=== PATIENT | female | born 1955 | race Caucasian/White ===

== ENCOUNTER 2020-06-17 01:38 | Outpatient (CLI) | payer MEDICARE, MEDICAID, SELFPAY ==
[2020-06-17 18:01] LABS: SARS-CoV-2 RNA PCR Negative
== END 2020-06-17 01:39 | disposition home or self-care (01) ==
LOC: ANHCOVIDDT 01:40
PROVIDERS: PCP Family Medicine; Visit Provider Internal Medicine Gastroenterology
DX: Z01.812 Encounter for preprocedural laboratory examination (principal); Z20.828 Contact with and (suspected) exposure to other viral communicable diseases
CPT/HCPCS: 87635; C9803; U0003

== ENCOUNTER 2020-06-20 02:29 | Day surgery (SDC) | payer MEDICARE, MEDICAID, SELFPAY ==
[2020-06-08 14:24] VITALS: BMI 54.1
[2020-06-20 07:05] LABS: Glucose Point of Care 383 (65-105)
[2020-06-20] MEDS: LACTATED RINGERS 1,000 ML 150 ML IV CONT (07:11)
[2020-06-20 07:15] VITALS: BP 141/53; PULSE 71; RESP 20; TEMP 36.6; O2SAT 97
--- NOTE | 2020-06-20 07:37 | WPDANESEPPF ---
Anes - Initial Pre Proc Eval Procedure: Operation Date: 06/20/20 09:00 Proposed Procedures p Screening Colonoscopy - Jonathan Man MD Date/Time: 06/20/20 07:37 Surgeon: Jonathan Man MD Pre Op Diagnosis: neoplasm screening Patient Data Age: 64 Gender: F Height: 5 ft 4 in Weight: 143.7 kg Last Vital Signs Temp 97.9 F 06/20/20 07:15 Pulse 71 06/20/20 07:15 Resp 20 06/20/20 07:15 BP 141/53 H 06/20/20 07:15 Pulse Ox 97 06/20/20 07:15 Allergies Allergy/AdvReac Type Severity Reaction Status Date / Time amoxicillin Allergy Unknown Unknown Verified 06/20/20 07:13 aspirin Allergy Unknown Unknown Verified 06/20/20 07:13 cephalexin Allergy Unknown Rash Verified 06/20/20 07:13 Cephalosporins Allergy Unknown Unknown Verified 06/20/20 07:13 erythromycin base Allergy Unknown Rash Verified 06/20/20 07:13 meperidine Allergy Unknown Unknown Verified 06/20/20 07:13 naproxen Allergy Unknown Unknown Verified 06/20/20 07:13 oxycodone Allergy Unknown Unknown Verified 06/20/20 07:13 Penicillins Allergy Unknown Rash Verified 06/20/20 07:13 propoxyphene Allergy Unknown Unknown Verified 06/20/20 07:13 telithromycin Allergy Unknown Unknown Verified 06/08/20 14:17 tetracycline Allergy Unknown Unknown Verified 06/08/20 14:17 theophylline Allergy Unknown Unknown Verified 06/08/20 14:17 Home Medications Medication Instructions Recorded Confirmed Type escitalopram oxalate 10 mg tablet 10 mg PO DAILY 11/11/19 06/20/20 History furosemide 40 mg tablet 40 mg PO BID tablet 11/11/19 06/20/20 History insulin regular hum U-500 conc 500 156 unit SUB-Q TID ml 11/11/19 06/20/20 History unit/mL subcutaneous soln ipratropium 20 mcg-albuterol 100 1 puff INHALATION QID 11/11/19 06/20/20 History mcg/actuation mist for inhalation lamotrigine 100 mg tablet 100 mg PO DAILY 11/11/19 06/20/20 History metolazone 5 mg tablet See Rx Instructions PO DAILY 11/11/19 06/20/20 History olanzapine 15 mg tablet 15 mg PO .QHS tablet 11/11/19 06/20/20 History rosuvastatin 40 mg tablet 40 mg PO .TWICE WEEKLY tablet 11/11/19 06/08/20 History spironolactone 25 mg tablet 12.5 mg PO DAILY tablet 11/11/19 06/08/20 History carvedilol 25 mg tablet 25 mg PO BID #180 tablet 01/18/20 06/20/20 Rx budesonide-formoterol HFA 80 2 puff INHALATION Q12H #6.9 gm 03/21/20 06/20/20 Rx mcg-4.5 mcg/actuation aerosol inhaler gabapentin 300 mg capsule 300 mg PO BID #180 cap 03/21/20 06/20/20 Rx insulin glargine 100 unit/mL (3 10 unit SUB-Q DAILY 03/21/20 06/20/20 History mL) subcutaneous pen potassium chloride 10 mEq 10 meq PO DAILY #90 tablet 03/29/20 06/20/20 Rx tablet,extended release tramadol 50 mg tablet 50 mg PO TID PRN #90 tablet 04/26/20 06/08/20 Rx omeprazole 20 mg capsule,delayed 20 mg PO DAILY #90 cap 05/10/20 06/20/20 Rx release riagrkzd-utvveynai-qvphawegx 3.5 4 drop EACH EAR Q8H #10 ml 06/01/20 06/20/20 Rx mg-10,000 unit/mL-1 % ear drops,susp lisinopril 2.5 mg PO DAILY 06/08/20 06/20/20 History Laboratory Tests 06/20/20 07:02 POC Capillary Glucose 383 mg/dl H mg/dl (65-105) Patient hx anesthesia problems: none Family hx anesthesia problems: none PMFSH Social History Social History Smoking status: Never smoker Second hand tobacco smoke exposure: No Alcohol intake: never Substance use: never Substance use type: does not use Gender identity (if verbalized by the patient): Female Sexual Orientation (if Verbalized by the Patient): Straight or Heterosexual Anes - Eval Final PreProcedure Day of Procedure 06/20/20 07:37 Patient weight: super morbidly obese Heart: regular rate and rhythm Lungs: clear to auscultation Airway: Mallampati scale class III Neurological: alert and oriented Last oral intake: >/= 8 hours ASA classification: IV Emergent: no Anesthetic plan: proceed Anesthesia type and monitoring: general
--- NOTE | 2020-06-20 08:57 | PM.HPGS ---
History of Present Illness History of Present Illness Consent: Risks, benefits, and alternatives have been discussed and questions answered. Patient agrees to proceed with procedure. Chief complaint: neoplasm screening Narrative: Vida Castañeda is a 64 year old female here for screening colonoscopy, last one 13 years ago. Review of Systems Constitutional: Constitutional: Denies headache(s) and Denies weakness Eyes: Eyes: Denies blurry vision ENT: Reports Normal hearing present, Denies headache(s) and Denies neck pain Cardiovascular: Cardiovascular: Denies chest pain and Denies dyspnea Respiratory: Respiratory: Denies dyspnea Gastrointestinal: Gastrointestinal: Reports no additional gastrointestinal complaints Genitourinary: Genitourinary: Denies dysuria Musculoskeletal: Musculoskeletal: Denies neck pain Integumentary/Breasts: Skin/Breast: Denies dry skin Neurologic: Reports Normal hearing present, Denies headache(s) and Denies weakness Psychiatric: Psychiatric: Denies anxiety Endocrine: Endocrine: Denies change in body appearance Hematologic/Lymphatic: Hematologic/Lymphatic: Denies easy bleeding Allergic/Immunologic: Allergic/Immunologic: Denies urticaria PMF Social History Social History Smoking status: Never smoker Second hand tobacco smoke exposure: No Alcohol intake: never Substance use: never Substance use type: does not use Gender identity (if verbalized by the patient): Female Sexual Orientation (if Verbalized by the Patient): Straight or Heterosexual Meds Home Medications and Allergies Home Medications Medication Instructions Recorded Confirmed Type escitalopram oxalate 10 mg tablet 10 mg PO DAILY 11/11/19 06/20/20 History furosemide 40 mg tablet 40 mg PO BID tablet 11/11/19 06/20/20 History insulin regular hum U-500 conc 500 156 unit SUB-Q TID ml 11/11/19 06/20/20 History unit/mL subcutaneous soln ipratropium 20 mcg-albuterol 100 1 puff INHALATION QID 11/11/19 06/20/20 History mcg/actuation mist for inhalation lamotrigine 100 mg tablet 100 mg PO DAILY 11/11/19 06/20/20 History metolazone 5 mg tablet See Rx Instructions PO DAILY 11/11/19 06/20/20 History olanzapine 15 mg tablet 15 mg PO .QHS tablet 11/11/19 06/20/20 History rosuvastatin 40 mg tablet 40 mg PO .TWICE WEEKLY tablet 11/11/19 06/08/20 History spironolactone 25 mg tablet 12.5 mg PO DAILY tablet 11/11/19 06/08/20 History carvedilol 25 mg tablet 25 mg PO BID #180 tablet 01/18/20 06/20/20 Rx budesonide-formoterol HFA 80 2 puff INHALATION Q12H #6.9 gm 03/21/20 06/20/20 Rx mcg-4.5 mcg/actuation aerosol inhaler gabapentin 300 mg capsule 300 mg PO BID #180 cap 03/21/20 06/20/20 Rx insulin glargine 100 unit/mL (3 10 unit SUB-Q DAILY 03/21/20 06/20/20 History mL) subcutaneous pen potassium chloride 10 mEq 10 meq PO DAILY #90 tablet 03/29/20 06/20/20 Rx tablet,extended release tramadol 50 mg tablet 50 mg PO TID PRN #90 tablet 04/26/20 06/08/20 Rx omeprazole 20 mg capsule,delayed 20 mg PO DAILY #90 cap 05/10/20 06/20/20 Rx release vdwnqtpu-gcyolcroo-wfaiqurvr 3.5 4 drop EACH EAR Q8H #10 ml 06/01/20 06/20/20 Rx mg-10,000 unit/mL-1 % ear drops,susp lisinopril 2.5 mg PO DAILY 06/08/20 06/20/20 History Allergies Allergy/AdvReac Type Severity Reaction Status Date / Time amoxicillin Allergy Unknown Unknown Verified 06/20/20 07:13 aspirin Allergy Unknown Unknown Verified 06/20/20 07:13 cephalexin Allergy Unknown Rash Verified 06/20/20 07:13 Cephalosporins Allergy Unknown Unknown Verified 06/20/20 07:13 erythromycin base Allergy Unknown Rash Verified 06/20/20 07:13 meperidine Allergy Unknown Unknown Verified 06/20/20 07:13 naproxen Allergy Unknown Unknown Verified 06/20/20 07:13 oxycodone Allergy Unknown Unknown Verified 06/20/20 07:13 Penicillins Allergy Unknown Rash Verified 06/20/20 07:13 propoxyphene Allergy Unknown Unknown [facility]
--- NOTE | 2020-06-20 09:38 | SUR.OPER ---
RESOLUTION 360 CLIP APPLIED TO THE TRANSVERSE POLYPECTOMY SITE. LOT # [id number] EXP 01/17/2023
--- NOTE | 2020-06-20 09:49 | SUR.OPER ---
DR. REEVES MADE AWARE OF US NOT RECOVERING ONE OF THE TRANSVERSE COLON POLYPS, NO FURTHER ORDERS RECEIVED
[2020-06-20 09:54] VITALS: BP 143/69; PULSE 78; RESP 22; O2SAT 95
[2020-06-20 10:04] VITALS: BP 144/70; PULSE 77; RESP 23; O2SAT 90
[2020-06-20 10:14] VITALS: BP 143/70; PULSE 77; RESP 21; O2SAT 91
[2020-06-20 10:14] LABS: Glucose Point of Care 298 (65-105)
== END 2020-06-20 10:35 | disposition home or self-care (01) ==
PROVIDERS: PCP Family Medicine; Visit Provider Internal Medicine Gastroenterology
PROC: 0DJD8ZZ Inspection of Lower Intestinal Tract, Via Natural or Artificial Opening Endoscopic (ICD-10-PCS; CPT 45378; principal; 2020-06-20 09:00)
DX: Z12.11 Encounter for screening for malignant neoplasm of colon (principal); D12.2 Benign neoplasm of ascending colon; D12.3 Benign neoplasm of transverse colon; K64.8 Other hemorrhoids; E11.9 Type 2 diabetes mellitus without complications; G47.33 Obstructive sleep apnea (adult) (pediatric); Z79.4 Long term (current) use of insulin; E66.01 Morbid (severe) obesity due to excess calories; Z68.43 Body mass index [BMI] 50.0-59.9, adult
CPT/HCPCS: 45385; 88305; J2704; J7120

== ENCOUNTER 2020-09-07 14:13 | Outpatient (CLI) | payer MEDICARE, SELFPAY ==
--- NOTE | 2020-09-07 15:29 | PCRCNOTE ---
UNABLE TO OBTAIN ABG DESPITE 3 ATTEMPTS AND 3 DIFFERENT TECHS. [facility] OFFICE NOTIFIED.
--- NOTE | 2020-09-07 15:31 | PCRCNOTE ---
PT ROOM AIR SAO2 86%
--- NOTE | 2020-09-17 15:09 | WPDPFTINT ---
PFT Interpretation PFT Interpretation: This PFT met all criteria for ATS standards and reproducibility FEV/FVC post bronchodilator 86% FEV1 65% FVC 54% TLC 105% RV 150% RV/TLC 56% DLCO 34% when adjusted for alveolar volume but not adjusted for hemoglobin Flow volume loops showed some end expiratory coving Impression: Air trapping and severe reduced diffusion capacity. The air trapping and lack of significant obstruction or restriction indicates that significant anemia or pulmonary hypertension should be rule out. Clinical and radiographic correlation is advised.
== END 2020-09-07 14:14 | disposition home or self-care (01) ==
PROVIDERS: PCP Family Medicine; Visit Provider Nurse Practitioner
DX: J44.9 Chronic obstructive pulmonary disease, unspecified (principal)
CPT/HCPCS: 94060; 94726; 94729

== ENCOUNTER 2021-02-12 13:59 | Outpatient (CLI) | payer MEDICARE, MEDICAID, SELFPAY | END 2021-02-12 14:00 | disposition home or self-care (01) | LOC: ANHCOVIDVC 13:59 | PROVIDERS: PCP Family Medicine | DX: Z23 Encounter for immunization (principal) | CPT/HCPCS: 0001A; 91300 ==

== ENCOUNTER → 2021-03-03 06:32 | Outpatient (CLI) | payer MEDICARE, MEDICAID, SELFPAY ==
[2021-03-03 19:16] LABS: SARS-CoV-2 RNA PCR Negative
== END ==
PROVIDERS: PCP Family Medicine; Visit Provider Internal Medicine Gastroenterology
DX: Z01.812 Encounter for preprocedural laboratory examination (principal); Z20.822 Contact with and (suspected) exposure to COVID-19
CPT/HCPCS: C9803; U0003; U0005

== ENCOUNTER 2021-03-05 14:12 | Outpatient (CLI) | payer MEDICARE, MEDICAID, SELFPAY | END 2021-03-05 14:13 | disposition home or self-care (01) | LOC: ANHCOVIDVC 14:12 | PROVIDERS: PCP Family Medicine | DX: Z23 Encounter for immunization (principal) | CPT/HCPCS: 0002A; 91300 ==

== ENCOUNTER 2021-03-06 01:00 | Day surgery (SDC) | payer MEDICARE, MEDICAID, SELFPAY ==
[2021-02-27 14:51] VITALS: BMI 56.0
[2021-03-06 09:33] VITALS: BP 132/76; PULSE 74; RESP 18; TEMP 36.1; O2SAT 96; BMI 54.6
[2021-03-06] MEDS: LACTATED RINGERS 1,000 ML 150 ML IV CONT (09:45)
[2021-03-06 09:47] LABS: Glucose Point of Care 217 (65-105)
--- NOTE | 2021-03-06 10:17 | WPDHPUPDATE1 ---
History and Physical Update Update Date/Time: 03/06/21 10:17 History and Physical has been reviewed, including an updated exam of the patient. There are NO changes in the patient's condition. Risks, benefits, and alternatives have been discussed and questions answered. Patient agrees to proceed with procedure.
[2021-03-06] MEDS: BENZOCAINE (*SP) 60 ML SPRAY CAN (HURRICAINE) 1 SPRAY MUCOUS MEM (11:03)
[2021-03-06 11:18] VITALS: BP 135/61; PULSE 72; RESP 20; O2SAT 99
[2021-03-06 11:28] VITALS: BP 126/63; PULSE 70; RESP 18; O2SAT 98
[2021-03-06 11:37] LABS: Glucose Point of Care 256 (65-105)
[2021-03-06 11:38] VITALS: BP 136/69; PULSE 68; RESP 18; O2SAT 96
== END 2021-03-06 11:55 | disposition home or self-care (01) ==
PROVIDERS: PCP Family Medicine; Visit Provider Internal Medicine Gastroenterology
PROC: 0DJ08ZZ Inspection of Upper Intestinal Tract, Via Natural or Artificial Opening Endoscopic (ICD-10-PCS; CPT 43235; principal; 2021-03-06 10:45)
DX: R13.19 Other dysphagia (principal); R11.2 Nausea with vomiting, unspecified; K63.89 Other specified diseases of intestine; K21.00 Gastro-esophageal reflux disease with esophagitis, without bleeding; K29.70 Gastritis, unspecified, without bleeding; G25.81 Restless legs syndrome; M19.90 Unspecified osteoarthritis, unspecified site; Z86.010 Personal history of colon polyps; I25.2 Old myocardial infarction; F31.9 Bipolar disorder, unspecified; R13.10 Dysphagia, unspecified; E78.5 Hyperlipidemia, unspecified; E11.9 Type 2 diabetes mellitus without complications; I11.0 Hypertensive heart disease with heart failure; I50.9 Heart failure, unspecified
CPT/HCPCS: 43239; 82948; 88305; C9803; J2704; J7120; U0003; U0005

== ENCOUNTER 2021-12-01 01:59 | Inpatient (IN) | payer MEDICARE, MEDICAID, SELFPAY ==
[2021-12-01] VITALS (28 sets, daily range): BP systolic 102–153; BP diastolic 43–79; PULSE 50–72; RESP 13–23; TEMP 36.6; O2SAT 95–100; BMI 50.9
--- NOTE | ~2021-12-01 | CT_ITS ---
EXAMINATION: CTA chest PE protocol DATE: 12/01/2021 04:28 INDICATION: Dyspnea. COVID-19 positive 11/30/21. TECHNIQUE: Computed tomography angiography (CTA) of the chest was performed with 100 mL Omnipaque-350 intravenous contrast timed to evaluate the pulmonary arteries. Coronal maximum intensity projection 3D-reconstructions were created by the technologist. Automated exposure control and iterative reconst ruction technique were employed. The dose-length product was 910.01 mGy-cm. COMPARISON: Chest CT 05/09/2017, chest single view 12/01/2021 FINDINGS: There are small pleural effusions. There are airspace and groundglass opacities in the uppe r lobes and lower lobes with volume loss. There is a dependent predominance in the lower lobes. A yanna cified left lung nodule and calcified mediastinal lymph node are consistent with old granulomatous di sease. There is a 9 mm nodule in left thyroid lobe, likely not clinically significant. Cardiomegaly i s noted. No pericardial effusion. There is no pulmonary embolus. The central pulmonary arteries are e nlarged, consistent with pulmonary arterial hypertension. There are changes of cholecystectomy. There are bridging endplate osteophytes at multiple levels in the spine, consistent with diffuse idiopathi c skeletal hyperostosis (DISH). There is mild thoracic spondylosis. IMPRESSION: 1. No pulmonary embolus. 2. Small pleural effusions. 3. Mild pulmonary edema versus pneumonia in the upper lobes. Mild atelectasis in the lower lobes and lingula. 4. Cardiomegaly. Reviewed, dictated and finalized at location A. [place] CUSTOMER SERVICE SPECIALIST IMPRESSION: 1. No pulmonary embolus. 2. Small pleural effusions. 3. Mild pulmonary edema versus pneumonia in the upper lobes. Mild atelectasis i n the lower lobes and lingula. 4. Cardiomegaly.
--- NOTE | ~2021-12-01 | XR_ITS ---
EXAMINATION: XR chest 1V portable DATE: 12/01/2021 02:40 INDICATION: Dyspnea. TECHNIQUE: A single frontal view of the chest was obtained. COMPARISON: Chest 2 views 08/18/2018, chest CT 12/01/2021 FINDINGS: There is chronic mild elevation of right hemidiaphragm. There is a diffuse interstitial pat tern in the lungs, consistent with mild pulmonary edema. There is mild atelectasis in the perihilar r egions and lower lung zones. No pleural effusion or pneumothorax. Cardiomegaly is noted. IMPRESSION: 1. Mild pulmonary edema. 2. Mild atelectasis in the perihilar regions and lower lung zones. 3. Cardiomegaly. Reviewed, dictated and finalized at location A. [place] AUTOMOTIVE TECHNICIAN
[2021-12-01 02:36] LABS: Fractional Inspired Oxygen 32 %; HCO3 VBG 38.6 mEq/l (24.0-30.0); PO2 VBG 54.9 mmHg (35.0-45.0); pH VBG 7.319 (7.300-7.400)
[2021-12-01 02:38] LABS: Device NASAL CANNULA; PCO2 VBG 76.8 mmHg (42.0-48.0)
[2021-12-01 02:40] LABS: Basophils Percent Auto 0.6 % (0.2-1.2); Eosinophils Absolute Auto 0.2 K/mm3 (0-0.3); Eosinophils Percent Auto 3.1 % (0-4.4); Hematocrit 33.8 % (37.0-47.0); Immature Granulocyte Absolute 0.14 K/mm3 (0.00-0.031); Immature Granulocyte Percent A 2.1 % (0-0.5); Lymphocytes Absolute Auto 1.39 K/mm3 (0.9-3.2); Lymphocytes Percent Auto 21.3 % (18.3-44.2); Mean Corpuscular HGB Conc 29.6 g/dl (32-36); Mean Corpuscular Hemoglobin 29.8 pg (26-34); Mean Corpuscular Volume 100.6 fl (80-100); Mean Platelet Volume 10.5 fl (7.4-10.4); Monocytes Absolute Auto 0.7 K/mm3 (0.1-0.6); Monocytes Percent Auto 11.2 % (2.6-8.5); Neutrophils Percent Auto 61.7 % (45.5-73.1); Nucleated Red Blood Cells Perc 0.6 % (0.0-0.2); Platelet Count Result 184 k/mm3 (150-375); Red Blood Count 3.36 M/mm3 (4.2-5.4); Red Cell Distribution Width 14.6 % (11.5-14.5); White Blood Count 6.5 K/mm3 (4.5-10.0)
[2021-12-01 02:45] LABS: Add Urine Microscopic? YES; Appearance Urine Turbid (Clear); Bacteria Urine Trace /hpf; Bilirubin Urine 1+ (Negative); Blood Urine 1+ (Negative); Budding Yeast Urine Present /hpf; Color Urine Amber (Yellow); Glucose Urine UA 3+ mg/dL (Negative); Ketones Urine Negative (Negative); Leukocyte Esterase Ur 3+ LEU/UL (Negative); Mucus Urine Heavy /lpf; Nitrate Urine Negative (Negative); Protein Urine 2+ mg/dL (Negative); RBC Urine >75 /hpf (0-2); Specific Grav Ur 1.025 (1.001-1.035); WBC Clumps Urine Present /HPF; WBC Urine >75 /hpf
[2021-12-01 02:48] LABS: Prothrombin Time 13.4 Seconds (11.1-14.7)
[2021-12-01 02:51] LABS: Lactic Acid Reflex 0.7 mmol/L (0.7-2.1)
[2021-12-01 02:54] LABS: Partial Thromboplastin Time 28.5 SECONDS (22.3-36.8)
[2021-12-01 02:57] LABS: Alanine Aminotransferase 12 U/L (4-35); Albumin Level 3.7 g/dL (3.5-5.1); Alkaline Phosphatase 47 U/L (38-126); Aspartate Amino Transferase 15 U/L (14-36); Bilirubin,Total 0.9 mg/dL (0.2-1.3); Blood Urea Nitrogen 14 mg/dL (7-17); Calcium 8.9 mg/dL (8.4-10.2); Carbon Dioxide > 40 mmol/L (22-30); Chloride 93 mmol/L (98-107); Estimated Glomerular Filt Rate > 60; Glucose 148 mg/dL (65-110); Magnesium 1.8 mg/dL (1.6-2.3); Potassium 3.7 mmol/L (3.4-5.0); Sodium 137 mmol/L (137-145)
[2021-12-01 03:03] LABS: NT Pro B Type Natriuretic Pept 407 pg/mL (5-100); Troponin I < 0.012 ng/mL (0.000-0.034)
--- NOTE | 2021-12-01 03:21 | ED.GENADULT ---
HPI - General Adult General Chief complaint: Shortness of Breath/Dyspnea Stated complaint: Covid+ Time Seen by Provider: 12/01/21 02:06 History of Present Illness HPI narrative: Patient is a 66-year-old female that presents the emergency department with chief complaint of shortness of breath. Patient is a resident of a local nursing facility and tested positive for COVID-19 on the . Patient today was brought in for shortness of breath and hypoxia. Per the nursing facility she was saturating in the 70s although when EMS arrived the patient had a pulse ox of 90% on her oxygen upon connecting to the EMS oxygen equipment at her normal rate she was saturating the mid 90s. Patient reports has been feeling more short of breath and also has noticed that she has been swelling up more. The patient is chronically on oxygen at the longterm. Related Data Home Medications Medication Instructions Recorded Confirmed olanzapine 15 mg tablet 20 mg PO .QHS tablet 11/11/19 03/06/21 lisinopril 2.5 mg PO DAILY 06/08/20 03/06/21 lamotrigine 100 mg tablet 100 mg PO DAILY 09/21/20 03/06/21 tiotropium bromide 2.5 2 inh INHALATION QAM 09/21/20 03/06/21 mcg/actuation mist for inhalation escitalopram oxalate 10 mg tablet 10 mg PO DAILY 01/30/21 03/06/21 potassium chloride 20 mEq 20 meq PO DAILY 04/03/21 04/03/21 tablet,extended release rosuvastatin 40 mg tablet 40 mg PO DAILY tablet 04/03/21 insulin regular hum U-500 conc 500 80 unit SUB-Q TID ml 06/20/21 unit/mL subcutaneous soln torsemide 20 mg tablet 40 mg PO DAILY tablet 06/20/21 06/20/21 Allergies Allergy/AdvReac Type Severity Reaction Status Date / Time amoxicillin Allergy Unknown Unknown Verified 06/25/21 09:58 aspirin Allergy Unknown Unknown Verified 06/25/21 09:58 cephalexin Allergy Unknown Rash Verified 06/25/21 09:58 Cephalosporins Allergy Unknown Unknown Verified 06/25/21 09:58 erythromycin base Allergy Unknown Rash Verified 06/25/21 09:58 meperidine Allergy Unknown Unknown Verified 06/25/21 09:58 naproxen Allergy Unknown Unknown Verified 06/25/21 09:58 oxycodone Allergy Unknown Unknown Verified 06/25/21 09:58 Penicillins Allergy Unknown Rash Verified 06/25/21 09:58 propoxyphene Allergy Unknown Unknown Verified 06/25/21 09:58 telithromycin Allergy Unknown Unknown Verified 06/25/21 09:58 tetracycline Allergy Unknown Unknown Verified 06/25/21 09:58 theophylline Allergy Unknown Unknown Verified 06/25/21 09:58 Review of Systems Review of Systems: My review of [facility] Past Medical History Medical History Adenomatous colon polyp Bipolar affect, depressed CHF (congestive heart failure) Chronic low back pain Colon cancer screening COPD (chronic obstructive pulmonary disease) Dysphagia Emphysema lung GERD without esophagitis Heart attack march 2018 History of home oxygen therapy Hyperlipidemia, unspecified Hypertension IDDM (insulin dependent diabetes mellitus) Left knee pain Lower extremity edema Morbidly obese YAYA (obstructive sleep apnea) Osteoarthritis Right knee pain RLS (restless legs syndrome) Trochanteric bursitis Trochanteric bursitis, left hip Weight gain Surgical History Surgical History History of cholecystectomy (~04/1992) Hx of tooth extraction (~03/2021) Family History Family History Mother Hypertension Family history of diabetes mellitus in first degree relative Family history of coronary artery disease Family history of malignant neoplasm of breast in first degree relative Patient's mother is , Onset Age: 62 Family history of chronic obstructive pulmonary disease Father Hypertension Diabetes mellitus Grandparent Cerebrovascular accident Diabetes mellitus Sibling Family history of diabetes mellitus in first degree relative Diabetes mellitus
[2021-12-01 05:04] LABS: Alveolar/Arterial O2 Gradient 167.2 mmHg; Base Excess ABG 10.5 mEq/l (+/-2.0); Carboxyhemoglobin 0.7 % THb (0-2.0); Fractional Inspired Oxygen 50 %; HCO3 ABG 40.1 mEq/l (22.0-26.0); Methemoglobin ABG 0.3 %THb (0-1.5); Oxygen Content ABG 13.5 %vol (16.0-22.0); Oxygen Saturation ABG 94.8 % (95.0-100.0); Oxyhemoglobin 93.3 % THb (90.0-100.0); PO2 ABG 87.7 mmHg (80.0-100.0); PO2 FiO2 Ratio Arterial Blood 1.75 %; Reduced Hemoglobin 5.7 %THb (0-5.0); Total Hemoglobin 10.2 g/dL (12.0-18.0)
[2021-12-01 05:07] LABS: Device BIPAP; Expiratory Pressure 6 cmH2O; Inspiratory Pressure 12 cmH2O; Modified Allen's Test Pass; PCO2 ABG 90.3 mmHg (35.0-45.0); Site Drawn RIGHT RADIAL; pH ABG 7.265 (7.350-7.450)
[2021-12-01 05:38] LABS: Troponin I < 0.012 ng/mL (0.000-0.034)
[2021-12-01] MEDS: DEXAMETHASONE SOD PHOS INJ 4 MG/ML VIAL 6 MG IV PUSH ×2 (07:02→09:41)
[2021-12-01] MEDS: REMDESIVIR 200 MG/NS 250 ML 200 MG/250 ML BAG 250 MG IVPB (08:07)
[2021-12-01] MEDS: IPRATROPIUM BR 0.02% INH SOLN 0.5 MG/2.5 ML VIAL INHALATION ×3 (08:23→20:36)
[2021-12-01] MEDS: ALBUTEROL SULFATE NEB 2.5 MG/0.5 ML INH 5 MG INHALATION ×3 (08:23→20:36)
--- NOTE | 2021-12-01 09:56 | PM.IMPN ---
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 Status: Acute Assessment and Plan: Basal and mealtime insulin with sliding scale Hold Korlym as there is no documented history of [place]akan disease and it may lessen the beneficial effect of dexamethasone (4) YAYA (obstructive sleep apnea): Code(s): G47.33 - Obstructive sleep apnea (adult) (pediatric) Status: Acute Assessment and Plan: BiPAP (5) Lower extremity edema: Code(s): R60.0 - Localized edema Status: Acute Assessment and Plan: 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 (6) Morbidly obese: Code(s): E66.01 - Morbid (severe) obesity due to excess calories Status: Acute (7) CHF (congestive heart failure): Qualifiers: Heart failure type: unspecified Heart failure chronicity: chronic Qualified Code(s): I50.9 - Heart failure, unspecified Code(s): I50.9 - Heart failure, unspecified Status: Acute Assessment and Plan: Clinically euvolemic (8) Bipolar affect, depressed: Qualifiers: Current episode severity: unspecified Qualified Code(s): F31.30 - Bipolar disorder, current episode depressed, mild or moderate severity, unspecified Code(s): F31.30 - Bipolar disorder, current episode depressed, mild or moderate severity, unspecified Status: Acute Assessment and Plan: Continue chronic psychiatric medications (9) COPD (chronic obstructive pulmonary disease): Qualifiers: COPD type: unspecified COPD Qualified Code(s): J44.9 - Chronic obstructive pulmonary disease, unspecified Code(s): J44.9 - Chronic obstructive pulmonary disease, unspecified Status: Inactive Assessment and Plan: Bronchodilator steroids antibiotics (10) Acute UTI: Code(s): N39.0 - Urinary tract infection, site not specified Status: Acute Assessment and Plan: Levaquin pending culture results Subjective Date/time seen: 12/01/21 09:56 Interval history: 12/01 visit. Breathing better BiPAP hungry and thirsty. Denied pain. Denied GI symptoms. Review of Systems Review of Systems: All systems reviewed & are unremarkable except as noted in HPI and below Exam Narrative: HEENT: PERRL, sclerae nonicteric, pharyngeal mucosa pink and intact NECK: No JVD, adenopathy, or thyromegaly CHEST: Coarse breath sounds. Tachypneic. HEART: NL S1/S2, regular, no murmur ABDOMEN: BS+, soft, nontender, no mass, no bruits EXTREMITIES: No cyanosis, edema, or clubbing NEUROLOGIC: CN intact and symmetric to inspection. MUSCULOSKELETAL: Tone and strength symmetric. PSYCH: Alert. Oriented to person, place, and time. Objective Data Vital Signs Vital Signs: Vital Signs - 24 hr 12/01/21 02:30 12/01/21 02:32 12/01/21 03:13 Pulse Rate 63 51 L Respiratory Rate 16 19 Blood Pressure 132/67 Pulse Oximetry 100 100 98 12/01/21 03:18 12/01/21 03:19 12/01/21 05:10 Pulse Rate 50 L 51 L Respiratory Rate 14 13 Blood Pressure 108/43 L 119/54 L Pulse Oximetry 98 99 100 12/01/21 05:45 12/01/21 07:00 12/01/21 08:12 Pulse Rate 50 L 58 L 58 L Respiratory Rate 23 H 15 14 Blood Pressure 147/67 H 140/79 Pulse Oximetry 100 95 99 12/01/21 08:20 12/01/21 08:29 12/01/21 09:13 Pulse Rate 60 60 60 Respiratory Rate 13 20 16 Blo
[2021-12-01] MEDS: BARICITINIB 2 MG TABLET 4 MG PO (11:01)
[2021-12-01 12:56] LABS: Alveolar/Arterial O2 Gradient 165.7 mmHg; Base Excess ABG 13.4 mEq/l (+/-2.0); Fractional Inspired Oxygen 50 %; HCO3 ABG 42.3 mEq/l (22.0-26.0); Oxygen Content ABG 14.5 %vol (16.0-22.0); Oxygen Saturation ABG 96.5 % (95.0-100.0); Oxyhemoglobin 95.2 % THb (90.0-100.0); PO2 ABG 96.8 mmHg (80.0-100.0); PO2 FiO2 Ratio Arterial Blood 1.94 %; Total Hemoglobin 10.7 g/dL (12.0-18.0); pH ABG 7.322 (7.350-7.450)
[2021-12-01 12:58] LABS: Device BIPAP; Modified Allen's Test Pass; PCO2 ABG 83.6 mmHg (35.0-45.0); Site Drawn RIGHT RADIAL
[2021-12-01 12:59] LABS: Expiratory Pressure 6 cmH2O; Inspiratory Pressure 12 cmH2O
[2021-12-01 16:17] LABS: Glucose Point of Care 217 mg/dl (65-105)
[2021-12-01] MEDS: INSULIN ASPART (*BKC) 100 UNITS/ML SUB-Q (17:03)
[2021-12-01 17:43] LABS: Alveolar/Arterial O2 Gradient 178.5 mmHg; Base Excess ABG 10.7 mEq/l (+/-2.0); Fractional Inspired Oxygen 50 %; HCO3 ABG 38.3 mEq/l (22.0-26.0); Modified Allen's Test Pass; Oxygen Content ABG 13.7 %vol (16.0-22.0); Oxygen Saturation ABG 96.9 % (95.0-100.0); Oxyhemoglobin 95.3 % THb (90.0-100.0); PCO2 ABG 70.5 mmHg (35.0-45.0); PO2 ABG 98.7 mmHg (80.0-100.0); PO2 FiO2 Ratio Arterial Blood 1.97 %; Site Drawn RIGHT RADIAL; Total Hemoglobin 10.1 g/dL (12.0-18.0); pH ABG 7.353 (7.350-7.450)
[2021-12-01 17:44] LABS: Device BIPAP; Expiratory Pressure 6 cmH2O; Inspiratory Pressure 16 cmH2O
--- NOTE | 2021-12-01 18:58 | PC.NURSE ---
called pharmacy x 2 for delivery of home medication
--- NOTE | 2021-12-01 22:48 | ADMGEN ---
This patient, Vida Castañeda, was admitted to IMU Room 207-01 on 12/01/21 at 2024. Patient/family oriented to hospital policies and general routines including ID bracelet, bed and alarms, visiting hours, pain management, procedures, bathroom and other care routines, personal items, smoking policy, room service/diet, and visiting hours. Information on how to activate the Rapid Response Team has been discussed. Patient/Family are encouraged to report perceived risks to care and to ask questions if they do not understand what they are told or what they should do.
[2021-12-02] VITALS (26 sets, daily range): BP systolic 111–143; BP diastolic 48–59; PULSE 52–74; RESP 15–24; TEMP 36.4–37.7; O2SAT 92–100
[2021-12-02] MEDS: IPRATROPIUM BR 0.02% INH SOLN 0.5 MG/2.5 ML VIAL INHALATION ×4 (02:36→21:26)
[2021-12-02] MEDS: ALBUTEROL SULFATE NEB 2.5 MG/0.5 ML INH 5 MG INHALATION ×4 (02:36→21:26)
[2021-12-02] MEDS: GABAPENTIN 300 MG CAPSULE PO ×4 (02:46→17:06)
[2021-12-02] MEDS: INSULIN GLARGINE (*BKC) 100 UNITS/ML 26 UNITS SUB-Q ×2 (02:46→20:12)
[2021-12-02] MEDS: ATORVASTATIN 40 MG TABLET 80 MG PO ×2 (02:46→20:12)
[2021-12-02] MEDS: lamoTRIgine 100 MG TABLET 200 MG PO ×2 (02:47→20:12)
[2021-12-02] MEDS: OLANZapine 5 MG TABLET 20 MG PO ×2 (02:48→20:12)
[2021-12-02 02:59] LABS: Glucose Point of Care 211 mg/dl (65-105)
[2021-12-02] MEDS: ONDANSETRON INJ 4 MG/2 ML VIAL IV PUSH (03:49)
[2021-12-02 05:24] LABS: Hematocrit 29.1 % (37.0-47.0); Hemoglobin 8.7 g/dL (12.0-15.0); Mean Corpuscular HGB Conc 29.9 g/dl (32-36); Mean Corpuscular Hemoglobin 29.2 pg (26-34); Mean Corpuscular Volume 97.7 fl (80-100); Mean Platelet Volume 11.1 fl (7.4-10.4); Platelet Count Result 150 k/mm3 (150-375); Red Blood Count 2.98 M/mm3 (4.2-5.4); Red Cell Distribution Width 14.2 % (11.5-14.5); White Blood Count 4.5 K/mm3 (4.5-10.0)
[2021-12-02 05:35] LABS: INR 1.1; Prothrombin Time 14.1 Seconds (11.1-14.7)
[2021-12-02 05:38] LABS: D Dimer 0.37 ug/mL (<0.48)
[2021-12-02 05:40] LABS: Alanine Aminotransferase 11 U/L (4-35); Estimated CRCL calculation 92 ml/min; Estimated Glomerular Filt Rate > 60
[2021-12-02 05:46] LABS: Alveolar/Arterial O2 Gradient 177.6 mmHg; Base Excess ABG 14.9 mEq/l (+/-2.0); Fractional Inspired Oxygen 50 %; HCO3 ABG 42.7 mEq/l (22.0-26.0); Oxygen Content ABG 13.8 %vol (16.0-22.0); Oxygen Saturation ABG 96.7 % (95.0-100.0); Oxyhemoglobin 95.4 % THb (90.0-100.0); PO2 ABG 94.9 mmHg (80.0-100.0); Total Hemoglobin 10.2 g/dL (12.0-18.0); pH ABG 7.375 (7.350-7.450)
[2021-12-02 05:48] LABS: Device BIPAP; Modified Allen's Test Pass; PCO2 ABG 74.7 mmHg (35.0-45.0); Site Drawn LEFT RADIAL
[2021-12-02 05:49] LABS: Expiratory Pressure 6 cmH2O; Inspiratory Pressure 16 cmH2O
[2021-12-02 06:18] LABS: Alanine Aminotransferase 11 U/L (4-35); Albumin Level 3.4 g/dL (3.5-5.1); Alkaline Phosphatase 40 U/L (38-126); Aspartate Amino Transferase 14 U/L (14-36); Bilirubin,Total 0.8 mg/dL (0.2-1.3); Blood Urea Nitrogen 13 mg/dL (7-17); CRP 0.7 mg/dL (<1.0); Calcium 8.6 mg/dL (8.4-10.2); Carbon Dioxide > 40 mmol/L (22-30); Chloride 92 mmol/L (98-107); Estimated CRCL calculation 92 ml/min; Estimated Glomerular Filt Rate > 60; Glucose 212 mg/dL (65-110); Lactate Dehydrogenase 380 U/L (313-618); Potassium 3.8 mmol/L (3.4-5.0); Sodium 134 mmol/L (137-145)
[2021-12-02 09:07] LABS: Glucose Point of Care 185 mg/dl (65-105)
[2021-12-02] MEDS: lisinopriL 20 MG TABLET 40 MG PO (09:10)
[2021-12-02] MEDS: carvediloL 25 MG TABLET PO ×2 (09:12→17:05)
[2021-12-02] MEDS: amLODIPine BESYLATE 5 MG TABLET 10 MG PO (09:12)
[2021-12-02] MEDS: PANTOPRAZOLE 40 MG TABLET PO ×2 (09:12→20:13)
[2021-12-02] MEDS: FOLIC ACID 1 MG TABLET PO (09:12)
[2021-12-02] MEDS: DEXAMETHASONE SOD PHOS INJ 4 MG/ML VIAL 6 MG IV PUSH (09:13)
[2021-12-02 10:37] LABS: Basophils Absolute Manual 0.04 K/mm3 (0.0-0.1); Total Cells Counted 100
[2021-12-02 10:38] LABS: Anisocytosis 1+ (NORMAL); Atypical Lymphocytes Present; Ovalocytes 2+ (NORMAL); Tear Drop Cells 1+ (NORMAL)
[2021-12-02 10:42] LABS: Neutrophils Percent Manual 66 % (46-73)
[2021-12-02 10:43] LABS: Lymphocytes Absolute Manual 1.39 K/mm3 (1.1-4.5); Monocytes Absolute Manual 0.13 K/mm3 (0.1-0.90); Monocytes Percent Manual 3 % (3-9); Neutrophils Absolute Manual 3.01 K/mm3 (1.7-7.2)
[2021-12-02 13:01] LABS: Glucose Point of Care 277 mg/dl (65-105)
--- NOTE | 2021-12-02 13:09 | PM.IMPN ---
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) use of insulin Status: Acute Assessment and Plan: Basal and mealtime insulin with sliding scale Hold Korlym as there is no documented history of Burke disease and it may lessen the beneficial effect of dexamethasone Blood sugars reviewed 12/02 hand control adequate (4) YAYA (obstructive sleep apnea): Code(s): G47.33 - Obstructive sleep apnea (adult) (pediatric) Status: Acute Assessment and Plan: BiPAP (5) Lower extremity edema: Code(s): R60.0 - Localized edema Status: Acute Assessment and Plan: 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 (6) Morbidly obese: Code(s): E66.01 - Morbid (severe) obesity due to excess calories Status: Acute (7) CHF (congestive heart failure): Qualifiers: Heart failure type: unspecified Heart failure chronicity: chronic Qualified Code(s): I50.9 - Heart failure, unspecified Code(s): I50.9 - Heart failure, unspecified Status: Acute Assessment and Plan: Clinically euvolemic (8) Bipolar affect, depressed: Qualifiers: Current episode severity: unspecified Qualified Code(s): F31.30 - Bipolar disorder, current episode depressed, mild or moderate severity, unspecified Code(s): F31.30 - Bipolar disorder, current episode depressed, mild or moderate severity, unspecified Status: Acute Assessment and Plan: Continue chronic psychiatric medications (9) COPD (chronic obstructive pulmonary disease): Qualifiers: COPD type: unspecified COPD Qualified Code(s): J44.9 - Chronic obstructive pulmonary disease, unspecified Code(s): J44.9 - Chronic obstructive pulmonary disease, unspecified Status: Inactive Assessment and Plan: Bronchodilator steroids antibiotics (10) Acute UTI: Code(s): N39.0 - Urinary tract infection, site not specified Status: Acute Assessment and Plan: Levaquin pending culture results Subjective Date/time seen: 12/02/21 13:09 Interval history: December 02 visit. Off continuous by CPAP since this morning. On 5 L by nasal cannula. Tolerating well. Short of breath with any exertion. Tolerated diet. Review of Systems Review of Systems: All systems reviewed & are unremarkable except as noted in HPI and below Exam Narrative: HEENT: PERRL, sclerae nonicteric, pharyngeal mucosa pink and intact NECK: No JVD CHEST: Coarse breath sounds with inspiratory and expiratory rhonchi Tachypneic. HEART: NL S1/S2, regular, no murmur ABDOMEN: BS+, soft, nontender, no mass, no bruits EXTREMITIES: 3+ nonpitting and trace pitting ankle edema NEUROLOGIC: CN intact and symmetric to inspection. MUSCULOSKELETAL: Tone and strength symmetric. PSYCH: Alert. Oriented to person, place, and time. Objective Data Vital Signs Vital Signs: Vital Signs - 24 hr 12/01/21 14:32 12/01/21 14:50 12/01/21 15:00 Temperature Pulse Rate 68 59 L 72 Respiratory Rate 18 22 H 18 Blood Pressure 135/66 119/65 Pulse Oximetry 98 100 99 12/01/21 18:33 12/01/21 19:35 12/01/21 19:36 Temperature Pulse Rate 68 66 68 Respiratory Rate 18 22 H 15 Blood Pressure 121/50 L Pulse Oximetry 98 100 12/01/21 20:04 12/01/21 20:40 12/01/21 20:45 Temperature 97.8 F Pulse Rate 67 68 70 Respiratory Ra
[2021-12-02] MEDS: REMDESIVIR 100 MG/NS 250 ML 100 MG/250 ML BAG 250 MG IVPB (13:21)
[2021-12-02] MEDS: BARICITINIB 2 MG TABLET 4 MG PO (13:21)
[2021-12-02] MEDS: INSULIN ASPART (*BKC) 100 UNITS/ML SUB-Q ×4 (13:22→17:06)
[2021-12-02] MEDS: ACETAMINOPHEN 325 MG TABLET 650 MG PO (17:06)
[2021-12-02 17:19] LABS: Glucose Point of Care 295 mg/dl (65-105)
[2021-12-02] MEDS: ESCITALOPRAM OXALATE 10 MG TABLET PO (20:12)
[2021-12-02 20:21] LABS: Glucose Point of Care 321 mg/dl (65-105)
[2021-12-03] VITALS (18 sets, daily range): BP systolic 120–148; BP diastolic 48–86; PULSE 51–71; RESP 18–24; TEMP 36.3–36.6; O2SAT 93–99
[2021-12-03] MEDS: ALBUTEROL SULFATE NEB 2.5 MG/0.5 ML INH 5 MG INHALATION ×4 (03:15→22:06)
[2021-12-03] MEDS: IPRATROPIUM BR 0.02% INH SOLN 0.5 MG/2.5 ML VIAL INHALATION ×4 (03:15→22:06)
[2021-12-03 05:20] LABS: Alveolar/Arterial O2 Gradient 121.1 mmHg; Fractional Inspired Oxygen 40 %; HCO3 ABG 38.3 mEq/l (22.0-26.0); Oxygen Content ABG 11.6 %vol (16.0-22.0); Oxygen Saturation ABG 97.8 % (95.0-100.0); Oxyhemoglobin 96.5 % THb (90.0-100.0); PCO2 ABG 54.3 mmHg (35.0-45.0); PO2 ABG 101.7 mmHg (80.0-100.0); PO2 FiO2 Ratio Arterial Blood 2.54 %; Total Hemoglobin 8.4 g/dL (12.0-18.0); pH ABG 7.466 (7.350-7.450)
[2021-12-03 05:21] LABS: Device NON-INVASIVE VENT; Modified Allen's Test Pass; Site Drawn LEFT RADIAL
[2021-12-03 05:22] LABS: Non-Invasive Expiratory Pressure 6 CMH2O; Non-Invasive Inspiratory Pressure 16 CMH2O; Non-Invasive Vent Rate 20 /MIN
[2021-12-03 06:46] LABS: Hematocrit 30.6 % (37.0-47.0); Hemoglobin 9.2 g/dL (12.0-15.0); Mean Corpuscular HGB Conc 30.1 g/dl (32-36); Mean Corpuscular Hemoglobin 29.1 pg (26-34); Mean Corpuscular Volume 96.8 fl (80-100); Mean Platelet Volume 10.9 fl (7.4-10.4); Platelet Count Result 148 k/mm3 (150-375); Red Blood Count 3.16 M/mm3 (4.2-5.4); Red Cell Distribution Width 14.4 % (11.5-14.5); White Blood Count 4.5 K/mm3 (4.5-10.0)
[2021-12-03 06:56] LABS: INR 1.1; Prothrombin Time 13.8 Seconds (11.1-14.7)
[2021-12-03 07:11] LABS: Alanine Aminotransferase 12 U/L (4-35); Blood Urea Nitrogen 13 mg/dL (7-17); CRP < 0.5 mg/dL (<1.0); Calcium 8.7 mg/dL (8.4-10.2); Carbon Dioxide > 40 mmol/L (22-30); Chloride 91 mmol/L (98-107); Estimated CRCL calculation 73 ml/min; Estimated Glomerular Filt Rate > 60; Glucose 262 mg/dL (65-110); Potassium 3.9 mmol/L (3.4-5.0); Sodium 134 mmol/L (137-145)
[2021-12-03] MEDS: lisinopriL 20 MG TABLET 40 MG PO (09:25)
[2021-12-03] MEDS: PANTOPRAZOLE 40 MG TABLET PO ×2 (09:25→20:58)
[2021-12-03] MEDS: GABAPENTIN 300 MG CAPSULE PO ×3 (09:25→17:17)
[2021-12-03] MEDS: amLODIPine BESYLATE 5 MG TABLET 10 MG PO (09:25)
[2021-12-03] MEDS: DEXAMETHASONE SOD PHOS INJ 4 MG/ML VIAL 6 MG IV PUSH (09:26)
[2021-12-03] MEDS: INSULIN ASPART (*BKC) 100 UNITS/ML SUB-Q ×6 (09:26→17:18)
[2021-12-03] MEDS: FOLIC ACID 1 MG TABLET PO (09:26)
[2021-12-03] MEDS: carvediloL 25 MG TABLET PO ×2 (09:26→17:17)
[2021-12-03 09:27] LABS: Glucose Point of Care 246 mg/dl (65-105)
[2021-12-03 10:16] LABS: Aspartate Amino Transferase 34 U/L (14-36)
[2021-12-03 10:48] LABS: Basophils Percent Auto 0.2 % (0.2-1.2); Eosinophils Absolute Auto 0.1 K/mm3 (0-0.3); Eosinophils Percent Auto 2.4 % (0-4.4); Immature Granulocyte Absolute 0.08 K/mm3 (0.00-0.031); Immature Granulocyte Percent A 1.7 % (0-0.5); Lymphocytes Absolute Auto 1.42 K/mm3 (0.9-3.2); Lymphocytes Percent Auto 30.8 % (18.3-44.2); Monocytes Absolute Auto 0.4 K/mm3 (0.1-0.6); Monocytes Percent Auto 8.7 % (2.6-8.5); Neutrophils Absolute Auto 2.6 K/mm3 (1.3-6.7); Neutrophils Percent Auto 56.2 % (45.5-73.1)
[2021-12-03] MEDS: REMDESIVIR 100 MG/NS 250 ML 100 MG/250 ML BAG 250 MG IVPB (12:45)
[2021-12-03] MEDS: BARICITINIB 2 MG TABLET 4 MG PO (12:45)
[2021-12-03 13:08] LABS: Glucose Point of Care 278 mg/dl (65-105)
[2021-12-03 13:35] LABS: Alanine Aminotransferase 14 U/L (4-35); Albumin Level 3.6 g/dL (3.5-5.1); Alkaline Phosphatase 39 U/L (38-126); Aspartate Amino Transferase 18 U/L (14-36); Bilirubin,Total 0.7 mg/dL (0.2-1.3); Blood Urea Nitrogen 12 mg/dL (7-17); Calcium 8.8 mg/dL (8.4-10.2); Carbon Dioxide > 40 mmol/L (22-30); Chloride 92 mmol/L (98-107); Estimated CRCL calculation 73 ml/min; Estimated Glomerular Filt Rate > 60; Glucose 255 mg/dL (65-110); Potassium 4.3 mmol/L (3.4-5.0); Sodium 135 mmol/L (137-145)
[2021-12-03 13:41] LABS: CRP < 0.5 mg/dL (<1.0)
[2021-12-03 13:48] LABS: D Dimer 0.94 ug/mL (<0.48)
[2021-12-03 14:09] LABS: Erythrocyte Sedimentation Rate 29 mm/hr (0-20)
[2021-12-03 17:03] LABS: Glucose Point of Care 306 mg/dl (65-105)
[2021-12-03 17:44] LABS: SARS-CoV-2 RNA PCR Negative
--- NOTE | 2021-12-03 18:51 | PM.IMPN ---
Progress Note: A&P Assessment and Plan (1) CHF (congestive heart failure): Qualifiers: Heart failure type: unspecified Heart failure chronicity: chronic Qualified Code(s): I50.9 - Heart failure, unspecified Code(s): I50.9 - Heart failure, unspecified Status: Acute Assessment and Plan: Clinically euvolemic (2) Acute hypercapnic respiratory failure: Code(s): J96.02 - Acute respiratory failure with hypercapnia Status: Acute Assessment and Plan: Continuous BiPAP with oxygen while sleeping Wean oxygen as tolerated (3) IDDM (insulin dependent diabetes mellitus): Code(s): E11.9 - Type 2 diabetes mellitus without complications; 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 Status: Acute Assessment and Plan: Basal and mealtime insulin with sliding scale Hold Korlym as there is no documented history of [place] disease and it may lessen the beneficial effect of dexamethasone Blood sugars reviewed 12/02 hand control adequate (4) YAYA (obstructive sleep apnea): Code(s): G47.33 - Obstructive sleep apnea (adult) (pediatric) Status: Acute Assessment and Plan: BiPAP (5) Lower extremity edema: Code(s): R60.0 - Localized edema Status: Acute Assessment and Plan: 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 (6) Morbidly obese: Code(s): E66.01 - Morbid (severe) obesity due to excess calories Status: Acute (7) Bipolar affect, depressed: Qualifiers: Current episode severity: unspecified Qualified Code(s): F31.30 - Bipolar disorder, current episode depressed, mild or moderate severity, unspecified Code(s): F31.30 - Bipolar disorder, current episode depressed, mild or moderate severity, unspecified Status: Acute Assessment and Plan: Continue chronic psychiatric medications (8) COPD (chronic obstructive pulmonary disease): Qualifiers: COPD type: unspecified COPD Qualified Code(s): J44.9 - Chronic obstructive pulmonary disease, unspecified Code(s): J44.9 - Chronic obstructive pulmonary disease, unspecified Status: Inactive Assessment and Plan: Bronchodilator steroids antibiotics (9) Acute UTI: Code(s): N39.0 - Urinary tract infection, site not specified Status: Acute Assessment and Plan: Levaquin pending culture results Additional Plan 12/03/2021 COVID-19 has been ruled out Discontinue all COVID medication Patient with hypercapnic respiratory failure likely secondary to her chronic COPD, YAYA and Pickwickian syndrome Continue home medications Zyprexa is 15 mg in the outpatient setting patient has been receiving 20 mg here in the hospital will decrease to 10 mg and see how patient responds Concepcion p.r.n. Discharge planning when stable from respiratory standpoint Time Spent With Patient Time with patient: Greater than 35 minutes Subjective Date/time seen: 12/03/21 18:51 COVID PCR testing for confirmation of outpatient call with positive result is negative. All COVID medications have been discontinued. Patient is on her home O2 requirements however last night per RN she was lethargic at nighttime. She does receive Lamictal and Zyprexa at night prior to sleeping. She did require the use of BiPAP last night due to respiratory depression and lethargy. Zyprexa dosing has been decreased in moved to a.m. and Lamictal will be continued at night. RN requested to report to oncoming physician tomorrow if patient had improvement of her acute drowsiness. At the time my interview patient has no questions she is hard of hearing consuming her lunch Exam Narrative: HEENT: NC/AT, EOMI, mmm NECK: No JVD CHEST: Distant breath sounds reduced air movement large body habitus no crackles wheezes or rhonchi HEART: S1-S2 regular rate and rhythm ABDOMEN: BS+, soft, nontender, globose EXTREMITIES: 2+ nonpitting and trace pitting ankle edema
[2021-12-03] MEDS: ACETAMINOPHEN 325 MG TABLET 650 MG PO (20:53)
[2021-12-03 20:55] LABS: Glucose Point of Care 304 mg/dl (65-105)
[2021-12-03] MEDS: lamoTRIgine 100 MG TABLET 200 MG PO (20:56)
[2021-12-03] MEDS: ATORVASTATIN 40 MG TABLET 80 MG PO (20:56)
[2021-12-03] MEDS: ESCITALOPRAM OXALATE 10 MG TABLET PO (20:59)
[2021-12-04] VITALS (16 sets, daily range): BP systolic 134–145; BP diastolic 49–63; PULSE 49–59; RESP 16–23; TEMP 36.1–36.7; O2SAT 93–97
[2021-12-04] MEDS: ALBUTEROL SULFATE NEB 2.5 MG/0.5 ML INH 5 MG INHALATION ×3 (02:28→21:45)
[2021-12-04] MEDS: IPRATROPIUM BR 0.02% INH SOLN 0.5 MG/2.5 ML VIAL INHALATION ×3 (02:28→21:45)
[2021-12-04 05:02] LABS: Basophils Percent Auto 0.4 % (0.2-1.2); Eosinophils Absolute Auto 0.1 K/mm3 (0-0.3); Eosinophils Percent Auto 2.4 % (0-4.4); Hematocrit 29.4 % (37.0-47.0); Immature Granulocyte Absolute 0.12 K/mm3 (0.00-0.031); Immature Granulocyte Percent A 2.4 % (0-0.5); Lymphocytes Absolute Auto 1.38 K/mm3 (0.9-3.2); Lymphocytes Percent Auto 27.2 % (18.3-44.2); Mean Corpuscular HGB Conc 30.6 g/dl (32-36); Mean Corpuscular Hemoglobin 29.1 pg (26-34); Mean Corpuscular Volume 95.1 fl (80-100); Mean Platelet Volume 10.7 fl (7.4-10.4); Monocytes Absolute Auto 0.4 K/mm3 (0.1-0.6); Monocytes Percent Auto 7.5 % (2.6-8.5); Neutrophils Absolute Auto 3.1 K/mm3 (1.3-6.7); Neutrophils Percent Auto 60.1 % (45.5-73.1); Platelet Count Result 147 k/mm3 (150-375); Red Blood Count 3.09 M/mm3 (4.2-5.4); Red Cell Distribution Width 14.2 % (11.5-14.5); White Blood Count 5.1 K/mm3 (4.5-10.0)
[2021-12-04 05:14] LABS: Prothrombin Time 13.5 Seconds (11.1-14.7)
[2021-12-04 05:20] LABS: Alanine Aminotransferase 14 U/L (4-35); Albumin Level 3.5 g/dL (3.5-5.1); Alkaline Phosphatase 41 U/L (38-126); Anion Gap 3 mmol/L (8-16); Aspartate Amino Transferase 16 U/L (14-36); Bilirubin,Total 0.7 mg/dL (0.2-1.3); Blood Urea Nitrogen 14 mg/dL (7-17); Calcium 8.5 mg/dL (8.4-10.2); Carbon Dioxide 39 mmol/L (22-30); Chloride 92 mmol/L (98-107); Estimated CRCL calculation 73 ml/min; Estimated Glomerular Filt Rate > 60; Glucose 288 mg/dL (65-110); Sodium 134 mmol/L (137-145)
[2021-12-04] MEDS: OLANZapine 5 MG TABLET 10 MG PO (08:55)
[2021-12-04] MEDS: lisinopriL 20 MG TABLET 40 MG PO (08:56)
[2021-12-04] MEDS: carvediloL 25 MG TABLET PO ×2 (08:56→16:00)
[2021-12-04] MEDS: PANTOPRAZOLE 40 MG TABLET PO ×2 (08:56→20:25)
[2021-12-04 08:57] LABS: Glucose Point of Care 277 mg/dl (65-105)
[2021-12-04] MEDS: FOLIC ACID 1 MG TABLET PO (08:58)
[2021-12-04] MEDS: amLODIPine BESYLATE 5 MG TABLET 10 MG PO (08:58)
[2021-12-04] MEDS: GABAPENTIN 300 MG CAPSULE PO ×3 (08:58→16:01)
[2021-12-04] MEDS: INSULIN ASPART (*BKC) 100 UNITS/ML SUB-Q ×6 (08:58→16:02)
--- NOTE | 2021-12-04 10:40 | PCRCNOTE ---
Window of time for administration has passed. See next scheduled administration.
[2021-12-04 12:49] LABS: Glucose Point of Care 351 mg/dl (65-105)
--- NOTE | 2021-12-04 17:09 | PC.NURSE ---
Patient downgraded to med/tele. Patient assigned to [id number], sent via bed, report given to Shiraz BRASWELL at 1710.
--- NOTE | 2021-12-04 17:17 | PC.NURSE ---
This patient, Vida Castañeda, was received from IMU on 12/04/21 at 1710. Received report from FRENCH Reece. Patient/family oriented to unit policies and routines
[2021-12-04 17:32] LABS: Glucose Point of Care 285 mg/dl (65-105)
--- NOTE | 2021-12-04 18:31 | PM.IMPN ---
Progress Note: A&P Assessment and Plan (1) CHF (congestive heart failure): Qualifiers: Heart failure type: unspecified Heart failure chronicity: chronic Qualified Code(s): I50.9 - Heart failure, unspecified Code(s): I50.9 - Heart failure, unspecified Status: Acute Assessment and Plan: Clinically euvolemic (2) Acute hypercapnic respiratory failure: Code(s): J96.02 - Acute respiratory failure with hypercapnia Status: Acute Assessment and Plan: Continuous BiPAP with oxygen while sleeping Wean oxygen as tolerated (3) IDDM (insulin dependent diabetes mellitus): Code(s): E11.9 - Type 2 diabetes mellitus without complications; 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 Status: Acute Assessment and Plan: Basal and mealtime insulin with sliding scale Hold Korlym as there is no documented history of [place] disease and it may lessen the beneficial effect of dexamethasone Blood sugars reviewed 12/02 hand control adequate (4) YAYA (obstructive sleep apnea): Code(s): G47.33 - Obstructive sleep apnea (adult) (pediatric) Status: Acute Assessment and Plan: BiPAP (5) Lower extremity edema: Code(s): R60.0 - Localized edema Status: Acute Assessment and Plan: 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 (6) Morbidly obese: Code(s): E66.01 - Morbid (severe) obesity due to excess calories Status: Acute (7) Bipolar affect, depressed: Qualifiers: Current episode severity: unspecified Qualified Code(s): F31.30 - Bipolar disorder, current episode depressed, mild or moderate severity, unspecified Code(s): F31.30 - Bipolar disorder, current episode depressed, mild or moderate severity, unspecified Status: Acute Assessment and Plan: Continue chronic psychiatric medications (8) COPD (chronic obstructive pulmonary disease): Qualifiers: COPD type: unspecified COPD Qualified Code(s): J44.9 - Chronic obstructive pulmonary disease, unspecified Code(s): J44.9 - Chronic obstructive pulmonary disease, unspecified Status: Inactive Assessment and Plan: Bronchodilator steroids antibiotics (9) Acute UTI: Code(s): N39.0 - Urinary tract infection, site not specified Status: Acute Assessment and Plan: Levaquin pending culture results Additional Plan 12/03/2021 COVID-19 has been ruled out Discontinue all COVID medication Patient with hypercapnic respiratory failure likely secondary to her chronic COPD, YAYA and Pickwickian syndrome Continue home medications Zyprexa is 15 mg in the outpatient setting patient has been receiving 20 mg here in the hospital will decrease to 10 mg and see how patient responds DuoNebs p.r.n. Discharge planning when stable from respiratory standpoint. 12/04/2021 COVID-19 has been ruled out All COVID medication were stopped Patient with hypercapnic respiratory failure likely secondary to her chronic COPD, YAYA and Pickwickian syndrome Continue home medications Zyprexa is 15 mg in the outpatient setting patient has been receiving 20 mg here in the hospital will decrease to 10 mg and see how patient responds DuoNebs p.r.n. Discharge planning when stable from respiratory standpoint Subjective Date/time seen: 12/04/21 11:45 S: Patient seen and examined at the bedside; no complaints. Review of Systems Review of Systems: All systems reviewed & are unremarkable except as noted in HPI and below Exam Narrative: HEENT: NC/AT, EOMI, mmm NECK: No JVD CHEST: Distant breath sounds reduced air movement large body habitus no crackles wheezes or rhonchi HEART: S1-S2 regular rate and rhythm ABDOMEN: BS+, soft, nontender, globose EXTREMITIES: 2+ nonpitting and trace pitting ankle edema NEUROLOGIC: CN intact and symmetric to inspection. AAO x3 no focal neurological deficits appreciated Objective Data Vital Signs
[2021-12-04] MEDS: ATORVASTATIN 40 MG TABLET 80 MG PO (20:25)
[2021-12-04] MEDS: ESCITALOPRAM OXALATE 10 MG TABLET PO (20:25)
[2021-12-04] MEDS: lamoTRIgine 100 MG TABLET 200 MG PO (20:25)
[2021-12-04] MEDS: INSULIN GLARGINE (*BKC) 100 UNITS/ML 26 UNITS SUB-Q (20:26)
[2021-12-04 20:43] LABS: Glucose Point of Care 277 mg/dl (65-105)
[2021-12-05] VITALS (21 sets, daily range): BP systolic 119–141; BP diastolic 49–71; PULSE 48–84; RESP 16–22; TEMP 36–36.6; O2SAT 91–100
[2021-12-05] MEDS: IPRATROPIUM BR 0.02% INH SOLN 0.5 MG/2.5 ML VIAL INHALATION ×4 (02:02→19:45)
[2021-12-05] MEDS: ALBUTEROL SULFATE NEB 2.5 MG/0.5 ML INH 5 MG INHALATION ×4 (02:02→19:45)
[2021-12-05 05:40] LABS: Basophils Percent Auto 0.4 % (0.2-1.2); Eosinophils Absolute Auto 0.1 K/mm3 (0-0.3); Eosinophils Percent Auto 2.6 % (0-4.4); Hematocrit 30.5 % (37.0-47.0); Hemoglobin 9.3 g/dL (12.0-15.0); Immature Granulocyte Absolute 0.08 K/mm3 (0.00-0.031); Immature Granulocyte Percent A 1.6 % (0-0.5); Immature Platelet Fraction Pct 7.9 % (0.9-11.2); Lymphocytes Absolute Auto 1.24 K/mm3 (0.9-3.2); Lymphocytes Percent Auto 25.1 % (18.3-44.2); Mean Corpuscular HGB Conc 30.5 g/dl (32-36); Mean Corpuscular Hemoglobin 29.2 pg (26-34); Mean Corpuscular Volume 95.6 fl (80-100); Mean Platelet Volume 10.9 fl (7.4-10.4); Monocytes Absolute Auto 0.4 K/mm3 (0.1-0.6); Monocytes Percent Auto 7.9 % (2.6-8.5); Neutrophils Absolute Auto 3.1 K/mm3 (1.3-6.7); Neutrophils Percent Auto 62.4 % (45.5-73.1); Platelet Count Result 131 k/mm3 (150-375); Red Blood Count 3.19 M/mm3 (4.2-5.4); Red Cell Distribution Width 14.4 % (11.5-14.5)
[2021-12-05 05:45] LABS: Prothrombin Time 13.2 Seconds (11.1-14.7)
[2021-12-05 05:55] LABS: Alanine Aminotransferase 16 U/L (4-35); Albumin Level 3.3 g/dL (3.5-5.1); Alkaline Phosphatase 41 U/L (38-126); Anion Gap 2 mmol/L (8-16); Aspartate Amino Transferase 17 U/L (14-36); Bilirubin,Total 0.6 mg/dL (0.2-1.3); Blood Urea Nitrogen 15 mg/dL (7-17); Calcium 8.5 mg/dL (8.4-10.2); Carbon Dioxide 37 mmol/L (22-30); Chloride 94 mmol/L (98-107); Estimated CRCL calculation 73 ml/min; Estimated Glomerular Filt Rate > 60; Glucose 327 mg/dL (65-110); Potassium 4.1 mmol/L (3.4-5.0); Sodium 133 mmol/L (137-145)
[2021-12-05] MEDS: FOLIC ACID 1 MG TABLET PO (08:03)
[2021-12-05] MEDS: PANTOPRAZOLE 40 MG TABLET PO ×2 (08:03→20:19)
[2021-12-05] MEDS: ERGOCALCIFEROL 50,000 UNIT CAPSULE 50000 UNITS PO (08:03)
[2021-12-05] MEDS: OLANZapine 5 MG TABLET 10 MG PO (08:03)
[2021-12-05] MEDS: carvediloL 25 MG TABLET PO ×2 (08:04→16:53)
[2021-12-05] MEDS: GABAPENTIN 300 MG CAPSULE PO ×3 (08:04→16:53)
[2021-12-05] MEDS: lisinopriL 20 MG TABLET 40 MG PO (08:05)
[2021-12-05 08:07] LABS: Glucose Point of Care 293 mg/dl (65-105)
[2021-12-05] MEDS: INSULIN ASPART (*BKC) 100 UNITS/ML SUB-Q ×6 (08:10→16:55)
--- NOTE | 2021-12-05 10:00 | PM.IMPN ---
Progress Note: A&P Assessment and Plan (1) CHF (congestive heart failure): Qualifiers: Heart failure type: unspecified Heart failure chronicity: chronic Qualified Code(s): I50.9 - Heart failure, unspecified Code(s): I50.9 - Heart failure, unspecified Status: Acute Assessment and Plan: Clinically euvolemic (2) Acute hypercapnic respiratory failure: Code(s): J96.02 - Acute respiratory failure with hypercapnia Status: Acute Assessment and Plan: Continuous BiPAP with oxygen while sleeping Wean oxygen as tolerated (3) IDDM (insulin dependent diabetes mellitus): Code(s): E11.9 - Type 2 diabetes mellitus without complications; 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 Status: Acute Assessment and Plan: Basal and mealtime insulin with sliding scale Hold Korlym as there is no documented history of [place] disease and it may lessen the beneficial effect of dexamethasone Blood sugars reviewed 12/02 hand control adequate (4) YAYA (obstructive sleep apnea): Code(s): G47.33 - Obstructive sleep apnea (adult) (pediatric) Status: Acute Assessment and Plan: BiPAP (5) Lower extremity edema: Code(s): R60.0 - Localized edema Status: Acute Assessment and Plan: 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 (6) Morbidly obese: Code(s): E66.01 - Morbid (severe) obesity due to excess calories Status: Acute (7) Bipolar affect, depressed: Qualifiers: Current episode severity: unspecified Qualified Code(s): F31.30 - Bipolar disorder, current episode depressed, mild or moderate severity, unspecified Code(s): F31.30 - Bipolar disorder, current episode depressed, mild or moderate severity, unspecified Status: Acute Assessment and Plan: Continue chronic psychiatric medications (8) COPD (chronic obstructive pulmonary disease): Qualifiers: COPD type: unspecified COPD Qualified Code(s): J44.9 - Chronic obstructive pulmonary disease, unspecified Code(s): J44.9 - Chronic obstructive pulmonary disease, unspecified Status: Inactive Assessment and Plan: Bronchodilator steroids antibiotics (9) Acute UTI: Code(s): N39.0 - Urinary tract infection, site not specified Status: Acute Assessment and Plan: Levaquin pending culture results Additional Plan 12/03/2021 COVID-19 has been ruled out Discontinue all COVID medication Patient with hypercapnic respiratory failure likely secondary to her chronic COPD, YAYA and Pickwickian syndrome Continue home medications Zyprexa is 15 mg in the outpatient setting patient has been receiving 20 mg here in the hospital will decrease to 10 mg and see how patient responds DuoNebs p.r.n. Discharge planning when stable from respiratory standpoint. 12/04/2021 COVID-19 has been ruled out All COVID medication were stopped Patient with hypercapnic respiratory failure likely secondary to her chronic COPD, YAYA and Pickwickian syndrome Continue home medications Zyprexa is 15 mg in the outpatient setting patient has been receiving 20 mg here in the hospital will decrease to 10 mg and see how patient responds DuoNebs p.r.n. Discharge planning when stable from respiratory standpoint. 12/05/2021 COVID-19 has been ruled out All COVID medication were stopped Patient with hypercapnic respiratory failure likely secondary to her chronic COPD, YAYA and Pickwickian syndrome Continue home medications Zyprexa is 15 mg in the outpatient setting patient has been receiving 20 mg here in the hospital will decrease to 10 mg and see how patient responds DuoNebs p.r.n. Discharge planning when stable from respiratory standpoint Subjective Date/time seen: 12/05/21 09:30 Subjective: Patient was seen and examined at the bedside. She short of breath from minor exertion. Review of Systems Review of Systems: All systems reviewed &
[2021-12-05] MEDS: FLUCONAZOLE 100 MG TABLET PO (11:03)
[2021-12-05] MEDS: amLODIPine BESYLATE 5 MG TABLET 10 MG PO (11:03)
[2021-12-05 12:03] LABS: Glucose Point of Care 272 mg/dl (65-105)
[2021-12-05] MEDS: DOCUSATE SODIUM 100 MG CAPSULE PO (12:14)
[2021-12-05 16:43] LABS: Glucose Point of Care 263 mg/dl (65-105)
[2021-12-05] MEDS: ESCITALOPRAM OXALATE 10 MG TABLET PO (20:19)
[2021-12-05] MEDS: lamoTRIgine 100 MG TABLET 200 MG PO (20:20)
[2021-12-05] MEDS: ATORVASTATIN 40 MG TABLET 80 MG PO (20:20)
[2021-12-05] MEDS: INSULIN GLARGINE (*BKC) 100 UNITS/ML 30 UNITS SUB-Q (20:22)
[2021-12-05 20:26] LABS: Glucose Point of Care 274 mg/dl (65-105)
[2021-12-06] VITALS (19 sets, daily range): BP systolic 124–134; BP diastolic 53–66; PULSE 49–71; RESP 16–22; TEMP 36.2–36.6; O2SAT 93–98
[2021-12-06] MEDS: ALBUTEROL SULFATE NEB 2.5 MG/0.5 ML INH 5 MG INHALATION ×3 (01:44→21:00)
[2021-12-06] MEDS: IPRATROPIUM BR 0.02% INH SOLN 0.5 MG/2.5 ML VIAL INHALATION ×3 (01:44→21:01)
[2021-12-06 05:49] LABS: Basophils Percent Auto 0.3 % (0.2-1.2); Eosinophils Absolute Auto 0.2 K/mm3 (0-0.3); Eosinophils Percent Auto 2.6 % (0-4.4); Hemoglobin 10.2 g/dL (12.0-15.0); Immature Granulocyte Absolute 0.08 K/mm3 (0.00-0.031); Immature Granulocyte Percent A 1.3 % (0-0.5); Immature Platelet Fraction Pct 8.9 % (0.9-11.2); Lymphocytes Absolute Auto 1.14 K/mm3 (0.9-3.2); Lymphocytes Percent Auto 18.5 % (18.3-44.2); Mean Corpuscular HGB Conc 30.9 g/dl (32-36); Mean Corpuscular Hemoglobin 29.2 pg (26-34); Mean Corpuscular Volume 94.6 fl (80-100); Mean Platelet Volume 10.9 fl (7.4-10.4); Monocytes Absolute Auto 0.4 K/mm3 (0.1-0.6); Neutrophils Absolute Auto 4.3 K/mm3 (1.3-6.7); Neutrophils Percent Auto 70.3 % (45.5-73.1); Platelet Count Result 139 k/mm3 (150-375); Red Blood Count 3.49 M/mm3 (4.2-5.4); Red Cell Distribution Width 14.4 % (11.5-14.5); White Blood Count 6.2 K/mm3 (4.5-10.0)
[2021-12-06 05:57] LABS: Alanine Aminotransferase 15 U/L (4-35); Albumin Level 3.6 g/dL (3.5-5.1); Alkaline Phosphatase 48 U/L (38-126); Anion Gap 2 mmol/L (8-16); Aspartate Amino Transferase 18 U/L (14-36); Bilirubin,Total 0.8 mg/dL (0.2-1.3); Blood Urea Nitrogen 13 mg/dL (7-17); Calcium 9.1 mg/dL (8.4-10.2); Carbon Dioxide 39 mmol/L (22-30); Chloride 94 mmol/L (98-107); Estimated CRCL calculation 73 ml/min; Estimated Glomerular Filt Rate > 60; Glucose 232 mg/dL (65-110); Sodium 135 mmol/L (137-145)
[2021-12-06] MEDS: FLUCONAZOLE 100 MG TABLET PO (07:52)
[2021-12-06] MEDS: GABAPENTIN 300 MG CAPSULE PO ×3 (07:53→16:47)
[2021-12-06] MEDS: FOLIC ACID 1 MG TABLET PO (07:53)
[2021-12-06] MEDS: OLANZapine 5 MG TABLET 10 MG PO (07:53)
[2021-12-06] MEDS: amLODIPine BESYLATE 5 MG TABLET 10 MG PO (07:53)
[2021-12-06] MEDS: lisinopriL 20 MG TABLET 40 MG PO (07:53)
[2021-12-06] MEDS: LACTULOSE 20 GM/30 ML UDC PO (07:54)
[2021-12-06] MEDS: carvediloL 25 MG TABLET PO ×2 (07:54→16:47)
[2021-12-06] MEDS: PANTOPRAZOLE 40 MG TABLET PO ×2 (07:55→20:32)
[2021-12-06 08:01] LABS: Glucose Point of Care 234 mg/dl (65-105)
[2021-12-06] MEDS: INSULIN ASPART (*BKC) 100 UNITS/ML SUB-Q ×5 (08:01→16:46)
[2021-12-06 11:49] LABS: Glucose Point of Care 286 mg/dl (65-105)
--- NOTE | 2021-12-06 14:12 | PM.IMPN ---
Progress Note: A&P Assessment and Plan (1) CHF (congestive heart failure): Qualifiers: Heart failure type: unspecified Heart failure chronicity: chronic Qualified Code(s): I50.9 - Heart failure, unspecified Code(s): I50.9 - Heart failure, unspecified Status: Acute Assessment and Plan: Clinically euvolemic (2) Acute hypercapnic respiratory failure: Code(s): J96.02 - Acute respiratory failure with hypercapnia Status: Acute Assessment and Plan: Continuous BiPAP with oxygen while sleeping Wean oxygen as tolerated (3) IDDM (insulin dependent diabetes mellitus): Code(s): E11.9 - Type 2 diabetes mellitus without complications; 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 Status: Acute Assessment and Plan: Basal and mealtime insulin with sliding scale Hold Korlym as there is no documented history of [place] disease and it may lessen the beneficial effect of dexamethasone Blood sugars reviewed 12/02 hand control adequate (4) YAYA (obstructive sleep apnea): Code(s): G47.33 - Obstructive sleep apnea (adult) (pediatric) Status: Acute Assessment and Plan: BiPAP (5) Lower extremity edema: Code(s): R60.0 - Localized edema Status: Acute Assessment and Plan: 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 (6) Morbidly obese: Code(s): E66.01 - Morbid (severe) obesity due to excess calories Status: Acute (7) Bipolar affect, depressed: Qualifiers: Current episode severity: unspecified Qualified Code(s): F31.30 - Bipolar disorder, current episode depressed, mild or moderate severity, unspecified Code(s): F31.30 - Bipolar disorder, current episode depressed, mild or moderate severity, unspecified Status: Acute Assessment and Plan: Continue chronic psychiatric medications (8) COPD (chronic obstructive pulmonary disease): Qualifiers: COPD type: unspecified COPD Qualified Code(s): J44.9 - Chronic obstructive pulmonary disease, unspecified Code(s): J44.9 - Chronic obstructive pulmonary disease, unspecified Status: Inactive Assessment and Plan: Bronchodilator steroids antibiotics (9) Acute UTI: Code(s): N39.0 - Urinary tract infection, site not specified Status: Acute Assessment and Plan: Levaquin pending culture results Additional Plan 12/03/2021 COVID-19 has been ruled out Discontinue all COVID medication Patient with hypercapnic respiratory failure likely secondary to her chronic COPD, YAYA and Pickwickian syndrome Continue home medications Zyprexa is 15 mg in the outpatient setting patient has been receiving 20 mg here in the hospital will decrease to 10 mg and see how patient responds DuoNebs p.r.n. Discharge planning when stable from respiratory standpoint. 12/04/2021 COVID-19 has been ruled out All COVID medication were stopped Patient with hypercapnic respiratory failure likely secondary to her chronic COPD, YAYA and Pickwickian syndrome Continue home medications Zyprexa is 15 mg in the outpatient setting patient has been receiving 20 mg here in the hospital will decrease to 10 mg and see how patient responds DuoNebs p.r.n. Discharge planning when stable from respiratory standpoint. 12/05/2021 COVID-19 has been ruled out All COVID medication were stopped Patient with hypercapnic respiratory failure likely secondary to her chronic COPD, YAYA and Pickwickian syndrome Continue home medications Zyprexa is 15 mg in the outpatient setting patient has been receiving 20 mg here in the hospital will decrease to 10 mg and see how patient responds DuoNebs p.r.n. Discharge planning when stable from respiratory standpoint. 12/06/2021 COVID-19 has been ruled out All COVID medication were stopped Patient with hypercapnic respiratory failure likely secondary to her chronic COPD, YAYA and Pickwickian syndrome Continue home medicat
[2021-12-06 16:41] LABS: Glucose Point of Care 246 mg/dl (65-105)
[2021-12-06 20:24] LABS: Glucose Point of Care 274 mg/dl (65-105)
[2021-12-06] MEDS: ATORVASTATIN 40 MG TABLET 80 MG PO (20:31)
[2021-12-06] MEDS: ESCITALOPRAM OXALATE 10 MG TABLET PO (20:32)
[2021-12-06] MEDS: ACETAMINOPHEN 325 MG TABLET 650 MG PO (20:32)
[2021-12-06] MEDS: lamoTRIgine 100 MG TABLET 200 MG PO (20:32)
[2021-12-06] MEDS: INSULIN GLARGINE (*BKC) 100 UNITS/ML 30 UNITS SUB-Q (20:33)
[2021-12-07] VITALS (22 sets, daily range): BP systolic 127–130; BP diastolic 54–67; PULSE 51–60; RESP 18–21; TEMP 35.9–36.4; O2SAT 93–98
[2021-12-07] MEDS: ALBUTEROL SULFATE NEB 2.5 MG/0.5 ML INH 5 MG INHALATION ×4 (02:06→19:50)
[2021-12-07] MEDS: IPRATROPIUM BR 0.02% INH SOLN 0.5 MG/2.5 ML VIAL INHALATION ×4 (02:06→19:50)
[2021-12-07 06:18] LABS: Basophils Percent Auto 0.4 % (0.2-1.2); Eosinophils Absolute Auto 0.2 K/mm3 (0-0.3); Eosinophils Percent Auto 2.7 % (0-4.4); Hematocrit 31.2 % (37.0-47.0); Hemoglobin 9.4 g/dL (12.0-15.0); Immature Granulocyte Absolute 0.05 K/mm3 (0.00-0.031); Immature Granulocyte Percent A 0.9 % (0-0.5); Immature Platelet Fraction Pct 10.7 % (0.9-11.2); Lymphocytes Absolute Auto 1.15 K/mm3 (0.9-3.2); Lymphocytes Percent Auto 20.5 % (18.3-44.2); Mean Corpuscular HGB Conc 30.1 g/dl (32-36); Mean Corpuscular Hemoglobin 29.6 pg (26-34); Mean Corpuscular Volume 98.1 fl (80-100); Mean Platelet Volume 11.5 fl (7.4-10.4); Monocytes Absolute Auto 0.5 K/mm3 (0.1-0.6); Monocytes Percent Auto 8.2 % (2.6-8.5); Neutrophils Absolute Auto 3.8 K/mm3 (1.3-6.7); Neutrophils Percent Auto 67.3 % (45.5-73.1); Platelet Count Result 135 k/mm3 (150-375); Red Blood Count 3.18 M/mm3 (4.2-5.4); Red Cell Distribution Width 14.4 % (11.5-14.5); White Blood Count 5.6 K/mm3 (4.5-10.0)
--- NOTE | 2021-12-07 07:32 | PM.IMPN ---
Progress Note: A&P Assessment and Plan (1) CHF (congestive heart failure): Qualifiers: Heart failure type: unspecified Heart failure chronicity: chronic Qualified Code(s): I50.9 - Heart failure, unspecified Code(s): I50.9 - Heart failure, unspecified Status: Acute Assessment and Plan: Clinically euvolemic. 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 Status: Acute Assessment and Plan: Basal and mealtime insulin with sliding scale Hold Korlym as there is no documented history of [place] disease and it may lessen the beneficial effect of dexamethasone Blood sugars reviewed 12/02 hand control moderately adequate (4) YAYA (obstructive sleep apnea): Code(s): G47.33 - Obstructive sleep apnea (adult) (pediatric) Status: Acute Assessment and Plan: BiPAP (5) Lower extremity edema: Code(s): R60.0 - Localized edema Status: Acute Assessment and Plan: 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 (6) Morbidly obese: Code(s): E66.01 - Morbid (severe) obesity due to excess calories Status: Acute (7) Bipolar affect, depressed: Qualifiers: Current episode severity: unspecified Qualified Code(s): F31.30 - Bipolar disorder, current episode depressed, mild or moderate severity, unspecified Code(s): F31.30 - Bipolar disorder, current episode depressed, mild or moderate severity, unspecified Status: Acute Assessment and Plan: Continue chronic psychiatric medications (8) COPD (chronic obstructive pulmonary disease): Qualifiers: COPD type: unspecified COPD Qualified Code(s): J44.9 - Chronic obstructive pulmonary disease, unspecified Code(s): J44.9 - Chronic obstructive pulmonary disease, unspecified Status: Inactive Assessment and Plan: Bronchodilator steroids antibiotics (9) Acute UTI: Code(s): N39.0 - Urinary tract infection, site not specified Status: Acute Assessment and Plan: Levaquin pending culture results Additional Plan 12/03/2021 COVID-19 has been ruled out Discontinue all COVID medication Patient with hypercapnic respiratory failure likely secondary to her chronic COPD, YAYA and Pickwickian syndrome Continue home medications Zyprexa is 15 mg in the outpatient setting patient has been receiving 20 mg here in the hospital will decrease to 10 mg and see how patient responds DuoNebs p.r.n. Discharge planning when stable from respiratory standpoint. 12/04/2021 COVID-19 has been ruled out All COVID medication were stopped Patient with hypercapnic respiratory failure likely secondary to her chronic COPD, YAYA and Pickwickian syndrome Continue home medications Zyprexa is 15 mg in the outpatient setting patient has been receiving 20 mg here in the hospital will decrease to 10 mg and see how patient responds DuoNebs p.r.n. Discharge planning when stable from respiratory standpoint. 12/05/2021 COVID-19 has been ruled out All COVID medication were stopped Patient with hypercapnic respiratory failure likely secondary to her chronic COPD, YAYA and Pickwickian syndrome Continue home medications Zyprexa is 15 mg in the outpatient setting patient has been receiving 20 mg here in the hospital will decrease to 10 mg and see how patient responds DuoNebs p.r.n. Discharge planning when stable from respiratory standpoint. 12/06/2021 COVID-19 has been ruled out All COVID medication were stopped Patient with hypercapnic respiratory failure likely secondary to her chronic COPD, YAYA and Pickwickian syndrome
[2021-12-07 07:57] LABS: Glucose Point of Care 199 mg/dl (65-105)
[2021-12-07] MEDS: PANTOPRAZOLE 40 MG TABLET PO ×2 (08:27→20:26)
[2021-12-07] MEDS: FLUCONAZOLE 100 MG TABLET PO (08:27)
[2021-12-07] MEDS: carvediloL 25 MG TABLET PO ×2 (08:27→17:22)
[2021-12-07] MEDS: FOLIC ACID 1 MG TABLET PO (08:27)
[2021-12-07] MEDS: amLODIPine BESYLATE 5 MG TABLET 10 MG PO (08:27)
[2021-12-07] MEDS: GABAPENTIN 300 MG CAPSULE PO ×3 (08:27→17:22)
[2021-12-07] MEDS: OLANZapine 5 MG TABLET 10 MG PO (08:27)
[2021-12-07] MEDS: lisinopriL 20 MG TABLET 40 MG PO (08:28)
[2021-12-07] MEDS: LACTULOSE 20 GM/30 ML UDC PO (08:29)
[2021-12-07] MEDS: INSULIN ASPART (*BKC) 100 UNITS/ML SUB-Q ×5 (08:31→17:23)
--- NOTE | 2021-12-07 10:00 | PM.IMPN ---
Progress Note: A&P Assessment and Plan (1) CHF (congestive heart failure): Qualifiers: Heart failure type: unspecified Heart failure chronicity: chronic Qualified Code(s): I50.9 - Heart failure, unspecified Code(s): I50.9 - Heart failure, unspecified Status: Acute Assessment and Plan: Clinically euvolemic. 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 Status: Acute Assessment and Plan: Basal and mealtime insulin with sliding scale Hold Korlym as there is no documented history of [place] disease and it may lessen the beneficial effect of dexamethasone Blood sugars reviewed 12/02 hand control moderately adequate (4) YAYA (obstructive sleep apnea): Code(s): G47.33 - Obstructive sleep apnea (adult) (pediatric) Status: Acute Assessment and Plan: BiPAP (5) Lower extremity edema: Code(s): R60.0 - Localized edema Status: Acute Assessment and Plan: 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 (6) Morbidly obese: Code(s): E66.01 - Morbid (severe) obesity due to excess calories Status: Acute Assessment and Plan: Caloric restrictive diet Physical therapy (7) Bipolar affect, depressed: Qualifiers: Current episode severity: unspecified Qualified Code(s): F31.30 - Bipolar disorder, current episode depressed, mild or moderate severity, unspecified Code(s): F31.30 - Bipolar disorder, current episode depressed, mild or moderate severity, unspecified Status: Acute Assessment and Plan: Continue chronic psychiatric medications (8) COPD (chronic obstructive pulmonary disease): Qualifiers: COPD type: unspecified COPD Qualified Code(s): J44.9 - Chronic obstructive pulmonary disease, unspecified Code(s): J44.9 - Chronic obstructive pulmonary disease, unspecified Status: Inactive Assessment and Plan: Bronchodilator steroids antibiotics (9) Acute UTI: Code(s): N39.0 - Urinary tract infection, site not specified Status: Acute Assessment and Plan: Levaquin pending culture results Additional Plan 12/03/2021 COVID-19 has been ruled out Discontinue all COVID medication Patient with hypercapnic respiratory failure likely secondary to her chronic COPD, YAYA and Pickwickian syndrome Continue home medications Zyprexa is 15 mg in the outpatient setting patient has been receiving 20 mg here in the hospital will decrease to 10 mg and see how patient responds DuoNebs p.r.n. Discharge planning when stable from respiratory standpoint. 12/04/2021 COVID-19 has been ruled out All COVID medication were stopped Patient with hypercapnic respiratory failure likely secondary to her chronic COPD, YAYA and Pickwickian syndrome Continue home medications Zyprexa is 15 mg in the outpatient setting patient has been receiving 20 mg here in the hospital will decrease to 10 mg and see how patient responds DuoNebs p.r.n. Discharge planning when stable from respiratory standpoint. 12/05/2021 COVID-19 has been ruled out All COVID medication were stopped Patient with hypercapnic respiratory failure likely secondary to her chronic COPD, YAYA and Pickwickian syndrome Continue home medications Zyprexa is 15 mg in the outpatient setting patient has been receiving 20 mg here in the hospital will decrease to 10 mg and see how patient responds DuoNebs p.r.n. Discharge planning when stable from respiratory standpoint. 12/06/2021 COVID-19 has been ruled out All COVID medication were stopped Patient with hypercapnic respiratory michael
--- NOTE | 2021-12-07 10:40 | PCNWS ---
Weekly nutritional screen. Patient is tolerating current diet with adequate intake. No weight loss reported. No nutritional needs at this time.
[2021-12-07 11:13] LABS: EDCOVIDSCREEN Negative (Negative)
[2021-12-07] MEDS: FUROSEMIDE 40 MG TABLET PO (11:23)
[2021-12-07 11:52] LABS: Glucose Point of Care 287 mg/dl (65-105)
--- NOTE | 2021-12-07 14:43 | ECG_ITS ---
Measurements Intervals [place] Rate: 53 P: 74 NM: 164 QRS: 15 QRSD: 98 T: 46 QT: 385 QTc: 364 Interpretive Statements SINUS BRADYCARDIA LOW QRS VOLTAGE IN PRECORDIAL LEADS BASELINE WANDER- I, II, V1-V3 BORDERLINE ECG Electronically Signed On 12-07-2021 16:08:41 HOOK AND EYE SEWING MACHINE OPERATOR by Jose Jones D.O.
[2021-12-07 16:00] LABS: Magnesium 1.5 mg/dL (1.6-2.3)
[2021-12-07 16:58] LABS: Glucose Point of Care 257 mg/dl (65-105)
[2021-12-07] MEDS: lamoTRIgine 100 MG TABLET 200 MG PO (20:25)
[2021-12-07] MEDS: ESCITALOPRAM OXALATE 10 MG TABLET PO (20:26)
[2021-12-07] MEDS: ATORVASTATIN 40 MG TABLET 80 MG PO (20:26)
[2021-12-07] MEDS: INSULIN GLARGINE (*BKC) 100 UNITS/ML 30 UNITS SUB-Q (20:44)
[2021-12-07 20:57] LABS: Glucose Point of Care 217 mg/dl (65-105)
[2021-12-08] VITALS (8 sets, daily range): BP systolic 128; BP diastolic 57; PULSE 50–58; RESP 20–22; TEMP 36; O2SAT 92–97
[2021-12-08] MEDS: ALBUTEROL SULFATE NEB 2.5 MG/0.5 ML INH 5 MG INHALATION ×2 (01:21→09:33)
[2021-12-08] MEDS: IPRATROPIUM BR 0.02% INH SOLN 0.5 MG/2.5 ML VIAL INHALATION ×2 (01:22→09:33)
[2021-12-08 05:42] LABS: Basophils Percent Auto 0.4 % (0.2-1.2); Eosinophils Absolute Auto 0.1 K/mm3 (0-0.3); Eosinophils Percent Auto 2.6 % (0-4.4); Hematocrit 31.5 % (37.0-47.0); Hemoglobin 9.5 g/dL (12.0-15.0); Immature Granulocyte Absolute 0.03 K/mm3 (0.00-0.031); Immature Granulocyte Percent A 0.6 % (0-0.5); Lymphocytes Absolute Auto 1.24 K/mm3 (0.9-3.2); Lymphocytes Percent Auto 23.3 % (18.3-44.2); Mean Corpuscular HGB Conc 30.2 g/dl (32-36); Mean Platelet Volume 11.8 fl (7.4-10.4); Monocytes Absolute Auto 0.5 K/mm3 (0.1-0.6); Monocytes Percent Auto 9.4 % (2.6-8.5); Neutrophils Absolute Auto 3.4 K/mm3 (1.3-6.7); Neutrophils Percent Auto 63.7 % (45.5-73.1); Platelet Count Result 130 k/mm3 (150-375); Red Blood Count 3.28 M/mm3 (4.2-5.4); Red Cell Distribution Width 14.6 % (11.5-14.5); White Blood Count 5.3 K/mm3 (4.5-10.0)
[2021-12-08 08:10] LABS: Glucose Point of Care 238 mg/dl (65-105)
[2021-12-08] MEDS: INSULIN ASPART (*BKC) 100 UNITS/ML SUB-Q ×4 (08:11→11:50)
[2021-12-08] MEDS: OLANZapine 5 MG TABLET 10 MG PO (08:14)
[2021-12-08] MEDS: FOLIC ACID 1 MG TABLET PO (08:14)
[2021-12-08] MEDS: LACTULOSE 20 GM/30 ML UDC PO (08:14)
[2021-12-08] MEDS: lisinopriL 20 MG TABLET 40 MG PO (08:14)
[2021-12-08] MEDS: amLODIPine BESYLATE 5 MG TABLET 10 MG PO (08:15)
[2021-12-08] MEDS: GABAPENTIN 300 MG CAPSULE PO ×2 (08:15→12:06)
[2021-12-08] MEDS: FLUCONAZOLE 100 MG TABLET PO (08:16)
[2021-12-08] MEDS: carvediloL 25 MG TABLET PO (08:16)
[2021-12-08] MEDS: PANTOPRAZOLE 40 MG TABLET PO (08:16)
--- NOTE | 2021-12-08 10:19 | PC.NURSE ---
Dr Blackman reviewed telemtry strip showing what appeared to be v-fib. Dr Blackman said this is artifact, not v-fib or v-tach.
--- NOTE | 2021-12-08 10:28 | PM.DS ---
DS: Admitting Diagnosis Discharge Date 12/08/2021 Admitting Diagnosis Acute hypercapnic respiratory failure. Acute on chronic systolic congestive heart failure. UTI DS: Discharge Diagnosis Discharge Diagnosis (1) CHF (congestive heart failure): Qualifiers: Heart failure type: unspecified Heart failure chronicity: chronic Qualified Code(s): I50.9 - Heart failure, unspecified Code(s): I50.9 - Heart failure, unspecified Status: Acute Assessment and Plan: Clinically euvolemic. 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 Status: Acute Assessment and Plan: Basal and mealtime insulin with sliding scale Hold Korlym as there is no documented history of [place] disease and it may lessen the beneficial effect of dexamethasone Blood sugars reviewed 12/02 hand control moderately adequate (4) YAYA (obstructive sleep apnea): Code(s): G47.33 - Obstructive sleep apnea (adult) (pediatric) Status: Acute Assessment and Plan: BiPAP (5) Lower extremity edema: Code(s): R60.0 - Localized edema Status: Acute Assessment and Plan: 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 (6) Morbidly obese: Code(s): E66.01 - Morbid (severe) obesity due to excess calories Status: Acute Assessment and Plan: Caloric restrictive diet Physical therapy (7) Bipolar affect, depressed: Qualifiers: Current episode severity: unspecified Qualified Code(s): F31.30 - Bipolar disorder, current episode depressed, mild or moderate severity, unspecified Code(s): F31.30 - Bipolar disorder, current episode depressed, mild or moderate severity, unspecified Status: Acute Assessment and Plan: Continue chronic psychiatric medications (8) COPD (chronic obstructive pulmonary disease): Qualifiers: COPD type: unspecified COPD Qualified Code(s): J44.9 - Chronic obstructive pulmonary disease, unspecified Code(s): J44.9 - Chronic obstructive pulmonary disease, unspecified Status: Inactive Assessment and Plan: Bronchodilator steroids antibiotics (9) Acute UTI: Code(s): N39.0 - Urinary tract infection, site not specified Status: Acute Assessment and Plan: Levaquin pending culture results DS: Summary Hospital Course Reason for hospitalization: Shortness of breath Hospital Course: 66 years old female was admitted with complaint of shortness of breath. Patient was found to have hypercapnic respiratory failure. Patient also acute exacerbation of congestive heart failure. Patient also have mild UTI. Patient given oxygen, diuresis was done and antibiotic was given. After few days of treatment patient started feeling better. Today patient is feeling good so patient discharged back to senior care in stable condition. Status at Discharge Functional status at discharge: independent ambulation Overall status at discharge: patient is back to baseline Time Spent with Patient Time attestation: Total time spent providing and/or coordinating discharge services: Time spent: Less than 30 minutes Exam Narrative: HEENT: NC/AT, EOMI, mmm NECK: No JVD CHEST: Distant breath sounds reduced air movement large body habitus no crackles wheezes or rhonchi HEART: S1-S2 regular rate and rhythm ABDOMEN: BS+, soft, nontender, globose EXTREMITIES: 2+ nonpitting and trace pitting ankle edema NEUROLOGIC: CN intact and symmetric to inspection. AAO x3 no focal neurological deficits appreciated Const: General: cooperative and no acute distress O
[2021-12-08 11:49] LABS: Glucose Point of Care 283 mg/dl (65-105)
--- NOTE | 2021-12-11 16:59 | PM.IMHP ---
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 She denied cough or chest pain or fever. She was diagnosed with COVID 19 on November 30. There have been other cases of COVID-19 in the custodial. She does note shortness of breath while lying flat. She has chronic edema. Review of Systems Review of Systems: All systems reviewed & are unremarkable except as noted in HPI and below PMFSH Past Medical History Medical History Adenomatous colon polyp Bipolar affect, depressed CHF (congestive heart failure) Chronic low back pain Colon cancer screening COPD (chronic obstructive pulmonary disease) Dysphagia Emphysema lung GERD without esophagitis Heart attack march 2018 History of home oxygen therapy Hyperlipidemia, unspecified Hypertension IDDM (insulin dependent diabetes mellitus) Left knee pain Lower extremity edema Morbidly obese YAYA (obstructive sleep apnea) Osteoarthritis Right knee pain RLS (restless legs syndrome) Trochanteric bursitis Trochanteric bursitis, left hip Weight gain Surgical History Surgical History History of cholecystectomy (~04/1992) Hx of tooth extraction (~03/2021) Family History Family History Mother Hypertension Family history of diabetes mellitus in first degree relative Family history of coronary artery disease Family history of malignant neoplasm of breast in first degree relative Patient's mother is , Onset Age: 62 Family history of chronic obstructive pulmonary disease Father Hypertension Diabetes mellitus Grandparent Cerebrovascular accident Diabetes mellitus Sibling Family history of diabetes mellitus in first degree relative Diabetes mellitus Patient's sister is in good health Patient's brother is in good health Family history of neuropathy Social History Social History Smoking status: Never smoker Second hand tobacco smoke exposure: No Alcohol intake: never Substance use: never Substance use type: does not use Additional living arrangements comments: HAS CAREGIVER STAYING WITH HER Gender identity (if verbalized by the patient): Female Sexual Orientation (if Verbalized by the Patient): Straight or Heterosexual Spiritual care concerns: No Meds Home Medications and Allergies Home Medications Medication Instructions Recorded Confirmed Type olanzapine 15 mg tablet 20 mg PO HS tablet 11/11/19 12/02/21 History escitalopram oxalate 10 mg tablet 10 mg PO HS 01/30/21 12/01/21 History carvedilol 25 mg tablet 25 mg PO BID #180 tablet 05/23/21 12/01/21 Rx tramadol 50 mg tablet 50 mg PO TID PRN #90 tablet 11/19/21 12/01/21 Rx Korlym 600 mg PO DAILY 12/01/21 12/01/21 History acetaminophen 650 mg PO Q6H PRN 12/01/21 12/01/21 History amlodipine 10 mg PO DAILY 12/01/21 12/01/21 History atorvastatin 80 mg PO HS 12/01/21 12/01/21 History bisacodyl 10 mg RECTAL DAILY PRN 12/01/21 12/01/21 History ergocalciferol (vitamin D2) 50,000 unit PO WEEKLY 12/01/21 12/01/21 History folic acid 1 mg PO DAILY 12/01/21 12/01/21 History gabapentin 300 mg PO TID 12/01/21 12/01/21 History insulin lispro 5 unit SUBCUT TID 12/01/21 12/01/21 History lamotrigine [Lamictal] 200 mg PO HS 12/01/21 12/01/21 History lisinopril 40 mg PO DAILY 12/01/21 12/01/21 History magnesium citrate [Citroma] 300 ml PO DAILY PRN 12/01/21 12/01/21 History magnesium hydroxide [Milk of 30 ml PO HS PRN 12/01/21 12/01/21 History Magnesia] omeprazole 20 mg PO DAILY 12/01/21 12/01/21 History tiotropium bromide 2 puff INHALATION DAILY 12/01/21 12/01/21 History blood sugar diagnos
== END 2021-12-08 13:01 | DRG 189 ==
LOC: ANHED 03:23 → ANHIMU 06:58 → ANH2MED 12-06 19:39 → ANHIMU 12-10 14:34
PROVIDERS: Internal Medicine; Admitting Provider Internal Medicine; Emergency Provider Emergency Medicine; PCP Family Medicine; Visit Provider Hospitalist
DX: J96.02 Acute respiratory failure with hypercapnia (principal); N39.0 Urinary tract infection, site not specified; F31.30 Bipolar disorder, current episode depressed, mild or moderate severity, unspecified; Z68.43 Body mass index [BMI] 50.0-59.9, adult; E66.2 Morbid (severe) obesity with alveolar hypoventilation; Z20.822 Contact with and (suspected) exposure to COVID-19; J44.9 Chronic obstructive pulmonary disease, unspecified; E11.9 Type 2 diabetes mellitus without complications; I89.0 Lymphedema, not elsewhere classified; E78.5 Hyperlipidemia, unspecified; G25.81 Restless legs syndrome; M70.62 Trochanteric bursitis, left hip; Z90.49 Acquired absence of other specified parts of digestive tract; I25.2 Old myocardial infarction; Z79.4 Long term (current) use of insulin
CPT/HCPCS: 36415; 36600; 71045; 71275; 80048; 80053; 81001; 82375; 82565; 82728; 82803; 82805; 82948; 83050; 83605; 83615; 83735; 83880; 84450; 84460; 84484; 85025; 85027; 85055; 85380; 85610; 85652; 85730; 86140; 87040; 87086; 87088; 87106; 87426; 93005; 94002; 94003; 94640; 96365; 97110; 97162; 97165; 97530; 97535; 99285; A9270; C9803; J1100; J1815; J1956; J2405; Q9967; U0003; U0005

== ENCOUNTER 2022-01-17 00:53 | Inpatient (IN) | payer MEDICARE, MEDICAID, SELFPAY ==
[2022-01-17] VITALS (29 sets, daily range): BP systolic 104–118; BP diastolic 50–82; PULSE 52–67; RESP 11–22; TEMP 35.7–37.1; O2SAT 93–100; BMI 50.1
--- NOTE | ~2022-01-17 | XR_ITS ---
EXAMINATION: XR chest 1V portable DATE: 01/22/2022 12:36 INDICATION: Shortness of breath TECHNIQUE: frontal view of the chest was obtained. COMPARISON: Chest radiograph dated 01/17/2022 FINDINGS: Mild increased interstitial pattern in the bilateral mid to lower lung zones with some peribronchial cuffing consistent with mild pulmonary edema. Persistent linear discoid atelectasis in the right midl [place]aya zone. No pleural effusion or pneumothorax. Cardiomegaly. IMPRESSION: 1. Likely mild congestive heart failure with cardiomegaly and mild pulmonary edema versus less likely pneumonia in the mid to lower lung zones. Reviewed, dictated and finalized at location A. IMPRESSION: 1. Likely mild congestive heart failure with cardiomegaly and mild pulmonary ed ronna versus less likely pneumonia in the mid to lower lung zones.
--- NOTE | ~2022-01-17 | XR_ITS ---
XR abdomen/kub 1V 01/20/2022 13:28 Indication: Constipation. Procedure: KUB Comparison: 04/03/2005 Findings: There is a large amount of retained fecal material in the right colon. There are cholecyste ctomy clips. No significant small bowel dilation. No acute osseous abnormality. Impression: 1: Prominent fecal retention of the right colon. No obstruction. Reviewed, dictated and finalized at location A. Impression: 1: Prominent fecal retention of the right colon. No obstruction.
--- NOTE | ~2022-01-17 | XR_ITS ---
EXAMINATION: XR chest 1V portable DATE: 01/17/2022 02:34 INDICATION: Shortness of breath TECHNIQUE: frontal view of the chest was obtained. COMPARISON: Chest radiograph and CT dated 12/01/2021 FINDINGS: Gradient of hazy airspace opacities in the lateral mid to lower lung zones suggesting small bilateral posterior layering pleural effusions. Mild linear nodular opacities in the right mid to lower and le ft lower lung zone which could represent associated atelectasis and/or pneumonia. No pneumothorax. Ca lcified left hilar lymph nodes consistent with old granulomatous disease. Cardiomegaly. IMPRESSION: 1. Opacities in the bilateral mid and lower lung zones which could represent small bilateral posterio r layering pleural effusions and associated atelectasis and/or pneumonia. 2. Cardiomegaly. Reviewed, dictated and finalized at location A. IMPRESSION: 1. Opacities in the bilateral mid and lower lung zones which could represent sm all bilateral posterior layering pleural effusions and associated atelectasis a nd/or pneumonia. 2. Cardiomegaly.
--- NOTE | 2022-01-17 01:03 | ECG_ITS ---
Measurements Intervals [place] Rate: 54 P: 59 DE: 151 QRS: 2 QRSD: 106 T: 39 QT: 384 QTc: 365 Interpretive Statements SINUS BRADYCARDIA LOW QRS VOLTAGE IN PRECORDIAL LEADS [QRS DEFLECTION < 1.0 mV IN CHEST LEADS] NONSPECIFIC T-WAVE ABNORMALITY COMPARED TO ECG 12/07/2021 15:34:07 T-WAVE ABNORMALITY NOW PRESENT Electronically Signed On 01-17-2022 13:57:27 CDT by Ligia Duval M.D.
[2022-01-17 01:51] LABS: Alanine Aminotransferase 10 U/L (4-35); Albumin Level 3.9 g/dL (3.5-5.1); Alkaline Phosphatase 49 U/L (38-126); Anion Gap 4 mmol/L (8-16); Aspartate Amino Transferase 16 U/L (14-36); Bilirubin,Total 1.1 mg/dL (0.2-1.3); Blood Urea Nitrogen 11 mg/dL (7-17); Calcium 8.5 mg/dL (8.4-10.2); Carbon Dioxide 37 mmol/L (22-30); Chloride 96 mmol/L (98-107); Estimated CRCL calculation 60 ml/min; Estimated Glomerular Filt Rate 50; Glucose 173 mg/dL (65-110); Potassium 3.9 mmol/L (3.4-5.0); Sodium 137 mmol/L (137-145)
[2022-01-17] MEDS: ALBUTEROL SULFATE NEB 2.5 MG/0.5 ML INH 5 MG INHALATION ×4 (02:05→19:52)
[2022-01-17] MEDS: IPRATROPIUM BR 0.02% INH SOLN 0.5 MG/2.5 ML VIAL INHALATION ×4 (02:05→19:52)
[2022-01-17 02:12] LABS: Basophils Percent Auto 0.4 % (0.2-1.2); Eosinophils Absolute Auto 0.1 K/mm3 (0-0.3); Hematocrit 30.6 % (37.0-47.0); Hemoglobin 9.2 g/dL (12.0-15.0); Immature Granulocyte Absolute 0.05 K/mm3 (0.00-0.031); Immature Granulocyte Percent A 0.9 % (0-0.5); Lymphocytes Absolute Auto 1.03 K/mm3 (0.9-3.2); Lymphocytes Percent Auto 19.2 % (18.3-44.2); Mean Corpuscular HGB Conc 30.1 g/dl (32-36); Mean Corpuscular Hemoglobin 28.9 pg (26-34); Mean Corpuscular Volume 96.2 fl (80-100); Mean Platelet Volume 11.1 fl (7.4-10.4); Monocytes Absolute Auto 0.5 K/mm3 (0.1-0.6); Monocytes Percent Auto 9.3 % (2.6-8.5); Neutrophils Absolute Auto 3.7 K/mm3 (1.3-6.7); Neutrophils Percent Auto 68.2 % (45.5-73.1); Platelet Count Result 157 k/mm3 (150-375); Red Blood Count 3.18 M/mm3 (4.2-5.4); White Blood Count 5.4 K/mm3 (4.5-10.0)
--- NOTE | 2022-01-17 02:15 | ED.SOB ---
HPI - SOB/Dyspnea General Chief Complaint: Shortness of Breath/Dyspnea Stated Complaint: sob and weakness labs yest increased bnp Time Seen by Provider: 01/17/22 01:31 Source: patient History of Present Illness HPI Narrative: Patient presents with shortness of breath and weakness been getting progressively worse over the past few days. Nurse facility noted hypoxia on patient's baseline O2 of 2 L and called ambulance and she was referred for further evaluation. Reports like she cannot get enough air denies any cough or congestion she also reports edema on her extremities is worse than usual. Denies any chest pain or lightheadedness denies any nausea or vomiting. Related Data Home Medications Medication Instructions Recorded Confirmed olanzapine 15 mg tablet 20 mg PO HS tablet 11/11/19 12/02/21 escitalopram oxalate 10 mg tablet 10 mg PO HS 01/30/21 12/01/21 Korlym 600 mg PO DAILY 12/01/21 12/01/21 acetaminophen 650 mg PO Q6H PRN 12/01/21 12/01/21 amlodipine 10 mg PO DAILY 12/01/21 12/01/21 atorvastatin 80 mg PO HS 12/01/21 12/01/21 bisacodyl 10 mg RECTAL DAILY PRN 12/01/21 12/01/21 ergocalciferol (vitamin D2) 50,000 unit PO WEEKLY 12/01/21 12/01/21 folic acid 1 mg PO DAILY 12/01/21 12/01/21 gabapentin 300 mg PO TID 12/01/21 12/01/21 insulin lispro 5 unit SUBCUT TID 12/01/21 12/01/21 lamotrigine [Lamictal] 200 mg PO HS 12/01/21 12/01/21 lisinopril 40 mg PO DAILY 12/01/21 12/01/21 magnesium citrate [Citroma] 300 ml PO DAILY PRN 12/01/21 12/01/21 magnesium hydroxide [Milk of 30 ml PO HS PRN 12/01/21 12/01/21 Magnesia] omeprazole 20 mg PO DAILY 12/01/21 12/01/21 tiotropium bromide 2 puff INHALATION DAILY 12/01/21 12/01/21 Allergies Allergy/AdvReac Type Severity Reaction Status Date / Time amoxicillin Allergy Unknown Unknown Verified 01/17/22 01:09 aspirin Allergy Unknown Unknown Verified 01/17/22 01:09 cephalexin Allergy Unknown Rash Verified 01/17/22 01:09 Cephalosporins Allergy Unknown Unknown Verified 01/17/22 01:09 erythromycin base Allergy Unknown Rash Verified 01/17/22 01:09 meperidine Allergy Unknown Unknown Verified 01/17/22 01:09 naproxen Allergy Unknown Unknown Verified 01/17/22 01:09 oxycodone Allergy Unknown Unknown Verified 01/17/22 01:09 Penicillins Allergy Unknown Rash Verified 01/17/22 01:09 propoxyphene Allergy Unknown Unknown Verified 01/17/22 01:09 telithromycin Allergy Unknown Unknown Verified 01/17/22 01:09 tetracycline Allergy Unknown Unknown Verified 01/17/22 01:09 theophylline Allergy Unknown Unknown Verified 01/17/22 01:09 Review of Systems Review of Systems: CONSTITUTIONAL: Denies fever, chills, or sweats. EYES: Denies visual changes, redness, or discharge. ENT: Denies rhinorrhea, congestion, sore throat, or otalgia. CARDIOVASCULAR: Denies chest pain, palpitations, or edema. RESPIRATORY: Reports shortness of breath GASTROINTESTINAL: Denies abdominal pain, nausea, vomiting, or diarrhea. GENITOURINARY: Denies dysuria or hematuria. SKIN: Denies rash or itching. MUSCULOSKELETAL: Denies back pain, joint pain, or myalgia. NEUROLOGIC: Denies headache, numbness, dizziness, or weakness. PSYCHIATRIC: Denies anxiety or depression. All systems reviewed & are unremarkable except as noted in HPI and below PMFSH Past Medical History Medical History Adenomatous colon polyp Bipolar affect, depressed CHF (congestive heart failure) Chronic low back pain Colon cancer screening COPD (chronic obstructive pulmonary disease) Dysphagia Emphysema lung GERD without esophagitis Heart attack march 2018 History of home oxygen therapy Hyperlipidemia, unspecified Hypertension IDDM (insulin dependent diabetes mellitus) Left knee pain Lower extremity edema Morbidly obese YAYA (obstructive sleep apnea) Osteoarthritis Right knee pain RLS (restless legs syndrome) Trochanteric bursitis Trochanteric bursitis, left hip Weight gain Surgical History Surgical History (Reviewed 0
[2022-01-17 02:18] LABS: NT Pro B Type Natriuretic Pept 436 pg/mL (5-100)
[2022-01-17 02:19] LABS: Alveolar/Arterial O2 Gradient 128.2 mmHg; Base Excess ABG 8.2 mEq/l (+/-2.0); Fractional Inspired Oxygen 40 %; HCO3 ABG 36.1 mEq/l (22.0-26.0); Oxygen Saturation ABG 93.2 % (95.0-100.0); Oxyhemoglobin 91.7 % THb (90.0-100.0); PO2 ABG 74.3 mmHg (80.0-100.0); PO2 FiO2 Ratio Arterial Blood 1.86 %; pH ABG 7.319 (7.350-7.450)
[2022-01-17 02:20] LABS: Device NASAL CANNULA; Modified Allen's Test Pass; PCO2 ABG 71.9 mmHg (35.0-45.0); Site Drawn RIGHT RADIAL
[2022-01-17] MEDS: FUROSEMIDE INJ 40 MG/4 ML VIAL IV PUSH ×3 (02:20→21:09)
[2022-01-17] MEDS: predniSONE 20 MG TABLET 60 MG PO ×2 (02:20→09:47)
--- NOTE | 2022-01-17 05:36 | ADMIMU ---
This patient, Vida Castañeda, was admitted to IMU status, and placed in Intensive Care Unit-4 at 0510. Patient/family oriented to hospital policies and general routines including ID bracelet, bed and alarms, visiting hours, pain management, procedures, bathroom and other care routines, personal items, smoking policy, room service/diet, and visiting hours. Valuables list has been completed. Information on how to activate the Rapid Response Team has been discussed. Patient/Family are encouraged to report perceived risks to care and to ask questions if they do not understand what they are told or what they should do.
[2022-01-17 08:17] LABS: Glucose Point of Care 161 mg/dl (65-105)
[2022-01-17] MEDS: TOLNAFTATE 1% POWDER 45 GM BTL 1 APPLIC TOPICAL ×2 (09:48→21:10)
--- NOTE | 2022-01-17 11:56 | PM.IMHP ---
H&P: HPI History of Present Illness Date/Time: 01/17/22 11:56 ED-HPI Narrative: Patient presents with shortness of breath and weakness been getting progressively worse over the past few days. Nurse facility noted hypoxia on patient's baseline O2 of 2 L and called ambulance and she was referred for further evaluation. Reports like she cannot get enough air denies any cough or congestion she also reports edema on her extremities is worse than usual. Denies any chest pain or lightheadedness denies any nausea or vomiting. 01/17/2022 patient is a 66-year-old female in origin and nursing history of [place] syndrome morbidly obese patient was sent to emergency department with complaint of shortness of breath, patient with a acute respiratory failure secondary to hypercapnia patient CO2 was 72 on arrival patient was placed on BiPAP, suspect multifactorial secondary to pneumonia chest x-ray showed Opacities in the bilateral mid and lower lung zones which could represent small bilateral posterior layering pleural effusions and associated atelectasis and/or pneumonia patient is being treated with levofloxacin, chest x-ray showing cardiomegaly most likely patient has congestive heart failure being treated with the Lasix IV 40 mg b.i.d. secondary to exacerbation of COPD patient is being treated with Solu-Medrol and updraft as well as hypoventilation secondary to morbid obesity with BMI of 50 and patient was transferred to IMU, currently his symptoms have improved patient is off BiPAP will continue to monitor and further recommendation to follow. patient admitted as inpatient will remain in hospital for 2 midnights Chief Complaint: shortness of breath Review of Systems Review of Systems: All systems reviewed & are unremarkable except as noted in HPI and below [facility] Past Medical History Medical History Adenomatous colon polyp Bipolar affect, depressed CHF (congestive heart failure) Chronic low back pain Colon cancer screening COPD (chronic obstructive pulmonary disease) Dysphagia Emphysema lung GERD without esophagitis Heart attack march 2018 History of home oxygen therapy Hyperlipidemia, unspecified Hypertension IDDM (insulin dependent diabetes mellitus) Left knee pain Lower extremity edema Morbidly obese YAYA (obstructive sleep apnea) Osteoarthritis Right knee pain RLS (restless legs syndrome) Trochanteric bursitis Trochanteric bursitis, left hip Weight gain Surgical History Surgical History History of cholecystectomy (~04/1992) Hx of tooth extraction (~03/2021) Family History Family History Mother Hypertension Family history of diabetes mellitus in first degree relative Family history of coronary artery disease Family history of malignant neoplasm of breast in first degree relative Patient's mother is , Onset Age: 62 Family history of chronic obstructive pulmonary disease Father Hypertension Diabetes mellitus Grandparent Cerebrovascular accident Diabetes mellitus Sibling Family history of diabetes mellitus in first degree relative Diabetes mellitus Patient's sister is in good health Patient's brother is in good health Family history of neuropathy Social History Social History Smoking status: Never smoker Second hand tobacco smoke exposure: No Alcohol intake: never Substance use: never Substance use type: does not use Additional living arrangements comments: HAS CAREGIVER STAYING WITH HER Gender identity (if verbalized by the patient): Female Sexual Orientation (if Verbalized by the Patient): Straight or Heterosexual Spiritual care concerns: No Meds Home Medications and Allergies Home Medications Medication Instructions Recorded Confirmed Type olanzapine
[2022-01-17 12:02] LABS: Glucose Point of Care 218 mg/dl (65-105)
[2022-01-17] MEDS: ERGOCALCIFEROL 50,000 UNIT CAPSULE 50000 UNITS PO (15:04)
[2022-01-17] MEDS: GABAPENTIN 300 MG CAPSULE PO ×2 (15:10→16:28)
[2022-01-17] MEDS: INSULIN ASPART (*BKC) 100 UNITS/ML SUB-Q ×2 (15:10→15:11)
[2022-01-17 16:17] LABS: Glucose Point of Care 180 mg/dl (65-105)
[2022-01-17] MEDS: MAGNESIUM HYDROXIDE SUSP 30 ML UDC PO (16:27)
[2022-01-17] MEDS: carvediloL 25 MG TABLET PO (16:28)
[2022-01-17] MEDS: ENOXAPARIN 40 MG/0.4 ML SYRINGE SUB-Q (21:09)
[2022-01-17] MEDS: lamoTRIgine 100 MG TABLET 200 MG PO (21:09)
[2022-01-17] MEDS: OLANZapine 5 MG TABLET 20 MG PO (21:09)
[2022-01-17] MEDS: ESCITALOPRAM OXALATE 10 MG TABLET PO (21:10)
[2022-01-17] MEDS: INSULIN GLARGINE (*BKC) 100 UNITS/ML 40 UNITS SUB-Q (21:25)
[2022-01-17 21:32] LABS: Glucose Point of Care 170 mg/dl (65-105)
[2022-01-18] VITALS (25 sets, daily range): BP systolic 101–114; BP diastolic 41–63; PULSE 46–56; RESP 10–24; TEMP 36.3–37.2; O2SAT 90–100
[2022-01-18] MEDS: traMADol HCL (*CRX) 50 MG TABLET PO (00:26)
[2022-01-18] MEDS: ALBUTEROL SULFATE NEB 2.5 MG/0.5 ML INH 5 MG INHALATION ×4 (02:00→20:05)
[2022-01-18] MEDS: IPRATROPIUM BR 0.02% INH SOLN 0.5 MG/2.5 ML VIAL INHALATION ×4 (02:00→20:05)
[2022-01-18 04:56] LABS: Hematocrit 29.3 % (37.0-47.0); Hemoglobin 8.6 g/dL (12.0-15.0); Immature Platelet Fraction Pct 9.1 % (0.9-11.2); Mean Corpuscular HGB Conc 29.4 g/dl (32-36); Mean Corpuscular Hemoglobin 29.1 pg (26-34); Mean Platelet Volume 11.2 fl (7.4-10.4); Platelet Count Result 135 k/mm3 (150-375); Red Blood Count 2.96 M/mm3 (4.2-5.4); Red Cell Distribution Width 14.7 % (11.5-14.5); White Blood Count 3.5 K/mm3 (4.5-10.0)
[2022-01-18 05:40] LABS: Blood Urea Nitrogen 8 mg/dL (7-17); Calcium 8.1 mg/dL (8.4-10.2); Carbon Dioxide > 40 mmol/L (22-30); Chloride 92 mmol/L (98-107); Estimated CRCL calculation 72 ml/min; Estimated Glomerular Filt Rate > 60; Glucose 127 mg/dL (65-110); Potassium 3.3 mmol/L (3.4-5.0); Sodium 138 mmol/L (137-145)
--- NOTE | 2022-01-18 06:00 | ECHO_ITS ---
Patient Info Name: Vida Castañeda Age: 66 years : 1955 Gender: Female Ht: 64 in Wt: 292 lbs BSA: 2.53 m2 HR: 50 bpm BP: 114 / 55 mmHg Technical Quality: Good Exam Date: 01/18/2022 8:53 AM Exam Location: [facility] Patient Status: Inpatient Admit Date: 01/17/2022 Staff Ordering Physician: Wan Kang MD Collection Coordinator: Ryan Giraldo RDCS, RT Attending Provider: Christian Parks MD Referring Physician: Jorge Luis MORALES; Exam Type: CA echo dop color flow w con Study Info Indications J96.91 - Respiratory failure, unspecified with hypoxia Complete two-dimensional, color flow and Doppler transthoracic echocardiogram is performed with agitated saline. Summary 1. Left ventricular chamber dimension is mildly enlarged. 2. Definity contrast administered improved wall motion interpretation. 3. Left ventricular systolic function is normal, estimated at 55-60%. 4. There is mildly increased left ventricular wall thickness. 5. The left ventricular diastolic function is grade III diastolic dysfunction. 6. E/e' 19 is elevated. 7. Left atrial chamber dimension is mildly enlarged. 8. There is trace mitral valve regurgitation. 9. There is trace tricuspid valve regurgitation. 10. No pulmonary hypertension, estimated pulmonary arterial systolic pressure is 38 mmHg. 11. Dilated inferior vena cava with >50% collapse upon inspiration consistent with elevated right atrial pressure, 10 mmHg. Left Ventricle E/e' 19 is elevated. Definity contrast administered improved wall motion interpretation. Left ventricular chamber dimension is mildly enlarged. Left ventricular systolic function is normal, estimated at 55-60%. There is mildly increased left ventricular wall thickness. The left ventricular diastolic function is grade III diastolic dysfunction. Right Ventricle Right ventricular systolic function is normal and with normal TAPSE 2.8 cm. Right ventricular chamber dimension is normal. Left Atria Left atrial chamber dimension is mildly enlarged. Right Atria Right atrial chamber dimension is normal. Aortic Valve The aortic valve is trileaflet. There is no aortic valve stenosis. There is no aortic valve regurgitation. Pulmonic Valve There is no pulmonic regurgitation. Mitral Valve There is no mitral valve stenosis. There is trace mitral valve regurgitation. Tricuspid Valve There is trace tricuspid valve regurgitation. No pulmonary hypertension, estimated pulmonary arterial systolic pressure is 38 mmHg. Pericardium/Pleural There is no pericardial effusion. Inferior Vena Cava Dilated inferior vena cava with >50% collapse upon inspiration consistent with elevated right atrial pressure, 10 mmHg. Aorta The aortic root size at the sinus of Valsalva is normal. Left Ventricular Outflow Tract Name Value Normal LVOT 2D LVOT Diameter 1.96 cm LVOT Doppler LVOT Peak Gradient 6 mmHg LVOT Mean Gradient 3 mmHg LVOT VTI 32.40 cm LVOT VTI/AV VTI Ratio 0.76 LVOT Stroke
[2022-01-18] MEDS: lisinopriL 20 MG TABLET 40 MG PO (08:07)
[2022-01-18] MEDS: FUROSEMIDE INJ 40 MG/4 ML VIAL IV PUSH ×2 (08:07→20:40)
[2022-01-18] MEDS: GABAPENTIN 300 MG CAPSULE PO ×3 (08:07→16:49)
[2022-01-18] MEDS: PANTOPRAZOLE 40 MG TABLET PO (08:07)
[2022-01-18] MEDS: FOLIC ACID 1 MG TABLET PO (08:07)
[2022-01-18] MEDS: TOLNAFTATE 1% POWDER 45 GM BTL 1 APPLIC TOPICAL ×2 (08:07→20:41)
[2022-01-18] MEDS: ENOXAPARIN 40 MG/0.4 ML SYRINGE SUB-Q ×2 (08:07→20:39)
[2022-01-18] MEDS: predniSONE 20 MG TABLET 60 MG PO (08:08)
[2022-01-18] MEDS: amLODIPine BESYLATE 5 MG TABLET 10 MG PO (08:08)
[2022-01-18] MEDS: INSULIN ASPART (*BKC) 100 UNITS/ML SUB-Q ×3 (08:13→16:50)
[2022-01-18 08:14] LABS: Glucose Point of Care 120 mg/dl (65-105)
[2022-01-18] MEDS: PERFLUTREN LIPID MICROSPHERES 1.5 ML VIAL DILUTED TO 10 ML TOTAL VOLUME IV PUSH (09:27)
--- NOTE | 2022-01-18 09:27 | IVDEFINITY ---
Prior to administration of IV Definity the patient was educated on the risks and benefits of the imaging enhancing agent including potential adverse side effects. The patient verbalized understanding. Allergies were verified. No exclusion criteria were identified and at least one of the following inclusion criteria were met: 1) physician request, 2) patient technically difficult to image (per the [place] [employer] guidelines of two or more segments not discernable within the apical view), or 3) questionable left ventricular function. ?
--- NOTE | 2022-01-18 11:00 | PC.NURSE ---
This patient, Vida Castañeda, was received from [ICU] on 01/18/22 at 1100. Patient/family oriented to unit policies and routines
--- NOTE | 2022-01-18 11:12 | PC.NURSE ---
Transferred patient to [facility] at 1050 via bed. Report given to Jody BRASWELL
[2022-01-18 11:52] LABS: Glucose Point of Care 150 mg/dl (65-105)
[2022-01-18] MEDS: POTASSIUM CHLORIDE 20 MEQ TABLET 40 MEQ PO (11:57)
--- NOTE | 2022-01-18 15:30 | PM.IMPN ---
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ifactorial secondary to pneumonia chest x-ray showed Opacities in the bilateral mid and lower lung zones which could represent small bilateral posterior layering pleural effusions and associated atelectasis and/or pneumonia patient is being treated with levofloxacin, chest x-ray showing cardiomegaly most likely patient has congestive heart failure being treated with the Lasix IV 40 mg b.i.d. secondary to exacerbation of COPD patient is being treated with Solu-Medrol and updraft as well as hypoventilation secondary to morbid obesity with BMI of 50 and patient was transferred to IMU, currently his symptoms have improved patient is off BiPAP will continue to monitor and further recommendation to follow. 01/18/2022 interval history: today patient states feeling better see wore her BiPAP last currently patient is on 6 L nasal cannula will continue present management with levofloxacin for pneumonia, Lasix for congestive heart failure, Solu-Medrol updraft for COPD, and patient continue to have a hypoventilation secondary morbid obesity, once patient clinical symptoms improved will switch her over to oral Lasix and taper Solu-Medrol, repeat chest x-ray and further recommendation to follow, will have a PT OT evaluate the patient. (2) Pneumonia: Qualifiers: Laterality: unspecified laterality Lung location: unspecified part of lung Pneumonia type: due to unspecified organism Qualified Code(s): J18.9 - Pneumonia, unspecified organism Code(s): J18.9 - Pneumonia, unspecified organism Status: Acute Assessment and Plan: most likely community-acquired pneumonia being treated with levofloxacin will continue to monitor and repeat chest x-ray (3) YAYA (obstructive sleep apnea): Code(s): G47.33 - Obstructive sleep apnea (adult) (pediatric) Status: Acute Assessment and Plan: patient with sleep apnea will continue BiPAP as needed (4) Morbidly obese: Code(s): E66.01 - Morbid (severe) obesity due to excess calories Status: Acute Assessment and Plan: patient with Rakan syndrome, 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, will continue home regimen and monitor (5) CHF (congestive heart failure): Qualifiers: Heart failure type: unspecified Heart failure chronicity: chronic Qualified Code(s): I50.9 - Heart failure, unspecified Code(s): I50.9 - Heart failure, unspecified Status: Acute Subjective Date/time seen: 01/18/22 15:30 01/17/2022 patient is a 66-year-old female in origin and nursing history of [place] syndrome morbidly obese patient was sent to emergency department with complaint of shortness of breath, patient with a acute respiratory failure secondary to hypercapnia patient CO2 was 72 on arrival patient was placed on BiPAP, suspect multifactorial secondary to pneumonia chest x-ray showed Opacities in the bilateral mid and lower lung zones which could represent small bilateral posterior layering pleural effusions and associated atelectasis and/or pneumonia patient is being treated with levofloxacin, chest x-ray showing cardiomegaly most likely patient has congestive heart failure being treated with the Lasix IV 40 mg b.i.d. secondary to exacerbation of COPD patient is being treated with Solu-Medrol and updraft as well as hypoventilation secondary to morbid obesity with BMI of 50 and
[2022-01-18 16:43] LABS: Glucose Point of Care 174 mg/dl (65-105)
[2022-01-18] MEDS: carvediloL 25 MG TABLET PO (16:49)
[2022-01-18] MEDS: lamoTRIgine 100 MG TABLET 200 MG PO (20:39)
[2022-01-18] MEDS: OLANZapine 5 MG TABLET 20 MG PO (20:40)
[2022-01-18] MEDS: ESCITALOPRAM OXALATE 10 MG TABLET PO (20:40)
[2022-01-18] MEDS: INSULIN GLARGINE (*BKC) 100 UNITS/ML 40 UNITS SUB-Q (20:44)
[2022-01-18 21:48] LABS: Glucose Point of Care 208 mg/dl (65-105)
[2022-01-19] VITALS (24 sets, daily range): BP systolic 114–126; BP diastolic 48–56; PULSE 47–65; RESP 12–20; TEMP 36.4; O2SAT 91–98
--- NOTE | 2022-01-19 01:54 | PC.NURSE ---
01/19/22 0154 pt removed bipap placed back on o2@2l/nc.pt denies sob.
[2022-01-19] MEDS: ALBUTEROL SULFATE NEB 2.5 MG/0.5 ML INH 5 MG INHALATION ×4 (02:10→20:36)
[2022-01-19] MEDS: IPRATROPIUM BR 0.02% INH SOLN 0.5 MG/2.5 ML VIAL INHALATION ×4 (02:10→20:36)
--- NOTE | 2022-01-19 02:29 | PCRCNOTE ---
Patient removed Bipap at approximately 0130 after wearing it for only a few hours. States she does not want to wear it. Patient placed on 3 lpm nasal cannula.
[2022-01-19 05:58] LABS: Hematocrit 28.8 % (37.0-47.0); Hemoglobin 8.5 g/dL (12.0-15.0); Immature Platelet Fraction Pct 8.2 % (0.9-11.2); Mean Corpuscular HGB Conc 29.5 g/dl (32-36); Mean Corpuscular Volume 98.3 fl (80-100); Mean Platelet Volume 11.2 fl (7.4-10.4); Platelet Count Result 153 k/mm3 (150-375); Red Blood Count 2.93 M/mm3 (4.2-5.4); White Blood Count 4.3 K/mm3 (4.5-10.0)
[2022-01-19 06:23] LABS: Blood Urea Nitrogen 9 mg/dL (7-17); Calcium 8.2 mg/dL (8.4-10.2); Carbon Dioxide > 40 mmol/L (22-30); Chloride 91 mmol/L (98-107); Estimated CRCL calculation 51 ml/min; Estimated Glomerular Filt Rate 41; Glucose 135 mg/dL (65-110); Potassium 3.4 mmol/L (3.4-5.0); Sodium 138 mmol/L (137-145)
[2022-01-19] MEDS: FOLIC ACID 1 MG TABLET PO (08:03)
[2022-01-19] MEDS: PANTOPRAZOLE 40 MG TABLET PO (08:03)
[2022-01-19] MEDS: amLODIPine BESYLATE 5 MG TABLET 10 MG PO (08:03)
[2022-01-19] MEDS: TOLNAFTATE 1% POWDER 45 GM BTL 1 APPLIC TOPICAL ×2 (08:03→20:18)
[2022-01-19] MEDS: GABAPENTIN 300 MG CAPSULE PO ×3 (08:03→16:51)
[2022-01-19] MEDS: predniSONE 20 MG TABLET 60 MG PO (08:03)
[2022-01-19] MEDS: lisinopriL 20 MG TABLET 40 MG PO (08:04)
[2022-01-19] MEDS: FUROSEMIDE INJ 40 MG/4 ML VIAL IV PUSH ×2 (08:04→20:11)
[2022-01-19] MEDS: carvediloL 25 MG TABLET PO ×2 (08:04→16:51)
[2022-01-19 08:05] LABS: Glucose Point of Care 132 mg/dl (65-105)
[2022-01-19] MEDS: INSULIN ASPART (*BKC) 100 UNITS/ML SUB-Q ×5 (08:05→16:50)
[2022-01-19] MEDS: ENOXAPARIN 40 MG/0.4 ML SYRINGE SUB-Q ×2 (08:05→20:12)
[2022-01-19] MEDS: POTASSIUM CHLORIDE 20 MEQ TABLET 40 MEQ PO (08:31)
--- NOTE | 2022-01-19 11:23 | PM.IMPN ---
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ifactorial secondary to pneumonia chest x-ray showed Opacities in the bilateral mid and lower lung zones which could represent small bilateral posterior layering pleural effusions and associated atelectasis and/or pneumonia patient is being treated with levofloxacin, chest x-ray showing cardiomegaly most likely patient has congestive heart failure being treated with the Lasix IV 40 mg b.i.d. secondary to exacerbation of COPD patient is being treated with Solu-Medrol and updraft as well as hypoventilation secondary to morbid obesity with BMI of 50 and patient was transferred to IMU, currently his symptoms have improved patient is off BiPAP will continue to monitor and further recommendation to follow. 01/18/2022 interval history: today patient states feeling better see wore her BiPAP last currently patient is on 6 L nasal cannula will continue present management with levofloxacin for pneumonia, Lasix for congestive heart failure, Solu-Medrol updraft for COPD, and patient continue to have a hypoventilation secondary morbid obesity, once patient clinical symptoms improved will switch her over to oral Lasix and taper Solu-Medrol, repeat chest x-ray and further recommendation to follow, will have a PT OT evaluate the patient. 01/19/2022 interval history: today patient states feeling better she wore her BiPAP last currently patient is on 3 L nasal cannula, she is on 2L at home, will continue present management with levofloxacin for pneumonia, Lasix for congestive heart failure, Solu-Medrol updraft for COPD, and patient continue to have a hypoventilation secondary morbid obesity, once patient clinical symptoms improved will switch her over to oral Lasix and taper Solu-Medrol, repeat chest x-ray and further recommendation to follow, today patient is working with PT OT. (2) Pneumonia: Qualifiers: Laterality: unspecified laterality Lung location: unspecified part of lung Pneumonia type: due to unspecified organism Qualified Code(s): J18.9 - Pneumonia, unspecified organism Code(s): J18.9 - Pneumonia, unspecified organism Status: Acute Assessment and Plan: most likely community-acquired pneumonia being treated with levofloxacin will continue to monitor and repeat chest x-ray (3) YAYA (obstructive sleep apnea): Code(s): G47.33 - Obstructive sleep apnea (adult) (pediatric) Status: Acute Assessment and Plan: patient with sleep apnea will continue BiPAP as needed (4) Morbidly obese: Code(s): E66.01 - Morbid (severe) obesity due to excess calories Status: Acute Assessment and Plan: patient with Rakan syndrome, 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, will continue home regimen and monitor (5) CHF (congestive heart failure): Qualifiers: Heart failure type: unspecified Heart failure chronicity: chronic Qualified Code(s): I50.9 - Heart failure, unspecified Code(s): I50.9 - Heart failure, unspecified Status: Acute Subjective Date/time seen: 01/19/22 11:23 01/17/2022 patient is a 66-year-old female in origin and 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
[2022-01-19 11:40] LABS: Glucose Point of Care 217 mg/dl (65-105)
[2022-01-19 16:54] LABS: Glucose Point of Care 233 mg/dl (65-105)
[2022-01-19] MEDS: INSULIN GLARGINE (*BKC) 100 UNITS/ML 40 UNITS SUB-Q (20:11)
[2022-01-19] MEDS: lamoTRIgine 100 MG TABLET 200 MG PO (20:11)
[2022-01-19] MEDS: OLANZapine 5 MG TABLET 20 MG PO (20:12)
[2022-01-19] MEDS: ESCITALOPRAM OXALATE 10 MG TABLET PO (20:12)
[2022-01-19 20:37] LABS: Glucose Point of Care 304 mg/dl (65-105)
[2022-01-20] VITALS (22 sets, daily range): BP systolic 111–120; BP diastolic 40–51; PULSE 48–82; RESP 14–20; TEMP 36–37; O2SAT 90–98
[2022-01-20] MEDS: IPRATROPIUM BR 0.02% INH SOLN 0.5 MG/2.5 ML VIAL INHALATION ×3 (02:29→20:45)
[2022-01-20] MEDS: ALBUTEROL SULFATE NEB 2.5 MG/0.5 ML INH 5 MG INHALATION ×3 (02:29→20:45)
[2022-01-20 06:05] LABS: Hematocrit 30.3 % (37.0-47.0); Mean Corpuscular HGB Conc 29.7 g/dl (32-36); Mean Corpuscular Hemoglobin 28.9 pg (26-34); Mean Corpuscular Volume 97.4 fl (80-100); Mean Platelet Volume 12.1 fl (7.4-10.4); Platelet Count Result 104 k/mm3 (150-375); Red Blood Count 3.11 M/mm3 (4.2-5.4); Red Cell Distribution Width 15.3 % (11.5-14.5); White Blood Count 4.2 K/mm3 (4.5-10.0)
[2022-01-20 06:21] LABS: Blood Urea Nitrogen 9 mg/dL (7-17); Calcium 8.1 mg/dL (8.4-10.2); Carbon Dioxide > 40 mmol/L (22-30); Chloride 89 mmol/L (98-107); Estimated CRCL calculation 65 ml/min; Estimated Glomerular Filt Rate 55; Glucose 175 mg/dL (65-110); Magnesium 1.5 mg/dL (1.6-2.3); Potassium 3.7 mmol/L (3.4-5.0); Sodium 136 mmol/L (137-145)
[2022-01-20 07:55] LABS: Glucose Point of Care 153 mg/dl (65-105)
[2022-01-20] MEDS: INSULIN ASPART (*BKC) 100 UNITS/ML SUB-Q ×5 (09:00→16:49)
[2022-01-20] MEDS: FUROSEMIDE INJ 40 MG/4 ML VIAL IV PUSH ×2 (09:08→20:37)
[2022-01-20] MEDS: ENOXAPARIN 40 MG/0.4 ML SYRINGE SUB-Q ×2 (09:10→20:38)
[2022-01-20] MEDS: predniSONE 20 MG TABLET 60 MG PO (09:11)
[2022-01-20] MEDS: amLODIPine BESYLATE 5 MG TABLET 10 MG PO (09:11)
[2022-01-20] MEDS: GABAPENTIN 300 MG CAPSULE PO ×3 (09:11→16:49)
[2022-01-20] MEDS: carvediloL 25 MG TABLET PO ×2 (09:11→16:49)
[2022-01-20] MEDS: FOLIC ACID 1 MG TABLET PO (09:12)
[2022-01-20] MEDS: PANTOPRAZOLE 40 MG TABLET PO (09:12)
[2022-01-20] MEDS: TOLNAFTATE 1% POWDER 45 GM BTL 1 APPLIC TOPICAL ×2 (09:12→20:39)
[2022-01-20] MEDS: lisinopriL 20 MG TABLET 40 MG PO (09:12)
[2022-01-20] MEDS: MAGNESIUM SULF 2 GM/WATER 50ML 2 GM/50 ML BAG IVPB (09:13)
[2022-01-20] MEDS: polyethylene glycoL 3350 17 GM POWD.PACK PO (09:42)
[2022-01-20 11:39] LABS: Glucose Point of Care 202 mg/dl (65-105)
--- NOTE | 2022-01-20 11:47 | PM.IMPN ---
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ifactorial secondary to pneumonia chest x-ray showed Opacities in the bilateral mid and lower lung zones which could represent small bilateral posterior layering pleural effusions and associated atelectasis and/or pneumonia patient is being treated with levofloxacin, chest x-ray showing cardiomegaly most likely patient has congestive heart failure being treated with the Lasix IV 40 mg b.i.d. secondary to exacerbation of COPD patient is being treated with Solu-Medrol and updraft as well as hypoventilation secondary to morbid obesity with BMI of 50 and patient was transferred to IMU, currently his symptoms have improved patient is off BiPAP will continue to monitor and further recommendation to follow. 01/18/2022 interval history: today patient states feeling better see wore her BiPAP last currently patient is on 6 L nasal cannula will continue present management with levofloxacin for pneumonia, Lasix for congestive heart failure, Solu-Medrol updraft for COPD, and patient continue to have a hypoventilation secondary morbid obesity, once patient clinical symptoms improved will switch her over to oral Lasix and taper Solu-Medrol, repeat chest x-ray and further recommendation to follow, will have a PT OT evaluate the patient. 01/19/2022 interval history: today patient states feeling better she wore her BiPAP last currently patient is on 3 L nasal cannula, she is on 2L at home, will continue present management with levofloxacin for pneumonia, Lasix for congestive heart failure, Solu-Medrol updraft for COPD, and patient continue to have a hypoventilation secondary morbid obesity, once patient clinical symptoms improved will switch her over to oral Lasix and taper Solu-Medrol, repeat chest x-ray and further recommendation to follow, today patient is working with PT OT. 01/20/2022 interval history: today patient states feeling better she wore her BiPAP last currently patient is on 2 L nasal cannula, she is on 2L at home, she is sitting in the chair, will continue present management with levofloxacin for pneumonia, Lasix for congestive heart failure, Solu-Medrol updraft for COPD, and patient continue to have a hypoventilation secondary morbid obesity, once patient clinical symptoms improved will switch her over to oral Lasix and taper Solu-Medrol, repeat chest x-ray and further recommendation to follow, today patient is working with PT OT. Today patient stats she has not had BM in 1 week and not sure if she passing gas, will start her on colace and miralax, will do KUB to r/o SBO if needed will give the suppository. will continue to monitor. if remains clinically stable will discharge the patient tomorrow (2) Pneumonia: Qualifiers: Laterality: unspecified laterality Lung location: unspecified part of lung Pneumonia type: due to unspecified organism Qualified Code(s): J18.9 - Pneumonia, unspecified organism Code(s): J18.9 - Pneumonia, unspecified organism Status: Acute Assessment and Plan: most likely community-acquired pneumonia being treated with levofloxacin will continue to monitor and repeat chest x-ray (3) YAYA (obstructive sleep apnea): Code(s): G47.33 - Obstructive sleep apnea (adult) (pediatric) Status: Acute Assessment and Plan: patient with sleep apnea will continue BiPAP as needed (4) Morbidly obese: Code(s): E66
[2022-01-20 16:39] LABS: Glucose Point of Care 203 mg/dl (65-105)
[2022-01-20] MEDS: INSULIN GLARGINE (*BKC) 100 UNITS/ML 40 UNITS SUB-Q (20:37)
[2022-01-20] MEDS: lamoTRIgine 100 MG TABLET 200 MG PO (20:38)
[2022-01-20] MEDS: OLANZapine 5 MG TABLET 20 MG PO (20:38)
[2022-01-20] MEDS: DOCUSATE SODIUM 100 MG CAPSULE PO (20:38)
[2022-01-20] MEDS: ESCITALOPRAM OXALATE 10 MG TABLET PO (20:38)
[2022-01-20 20:46] LABS: Glucose Point of Care 274 mg/dl (65-105)
[2022-01-21] VITALS (17 sets, daily range): BP systolic 115–134; BP diastolic 45–57; PULSE 48–61; RESP 16–21; TEMP 35.9–36.4; O2SAT 92–99
[2022-01-21] MEDS: ALBUTEROL SULFATE NEB 2.5 MG/0.5 ML INH 5 MG INHALATION ×3 (02:00→19:50)
[2022-01-21] MEDS: IPRATROPIUM BR 0.02% INH SOLN 0.5 MG/2.5 ML VIAL INHALATION ×3 (02:00→19:50)
[2022-01-21 06:19] LABS: Hematocrit 30.3 % (37.0-47.0); Hemoglobin 9.2 g/dL (12.0-15.0); Mean Corpuscular HGB Conc 30.4 g/dl (32-36); Mean Corpuscular Hemoglobin 28.8 pg (26-34); Mean Corpuscular Volume 94.7 fl (80-100); Mean Platelet Volume 10.6 fl (7.4-10.4); Platelet Count Result 120 k/mm3 (150-375); Red Cell Distribution Width 14.9 % (11.5-14.5); White Blood Count 4.7 K/mm3 (4.5-10.0)
[2022-01-21 06:33] LABS: Blood Urea Nitrogen 12 mg/dL (7-17); Calcium 8.4 mg/dL (8.4-10.2); Carbon Dioxide > 40 mmol/L (22-30); Chloride 86 mmol/L (98-107); Estimated CRCL calculation 60 ml/min; Estimated Glomerular Filt Rate 50; Glucose 224 mg/dL (65-110); Magnesium 1.8 mg/dL (1.6-2.3); Potassium 3.5 mmol/L (3.4-5.0); Sodium 136 mmol/L (137-145)
[2022-01-21] MEDS: ACETAMINOPHEN 325 MG TABLET 650 MG PO (07:42)
[2022-01-21 08:23] LABS: Glucose Point of Care 203 mg/dl (65-105)
[2022-01-21] MEDS: POTASSIUM CHLORIDE 20 MEQ TABLET 40 MEQ PO (08:41)
[2022-01-21] MEDS: predniSONE 20 MG TABLET 60 MG PO (08:41)
[2022-01-21] MEDS: GABAPENTIN 300 MG CAPSULE PO ×3 (08:41→16:33)
[2022-01-21] MEDS: carvediloL 25 MG TABLET PO ×2 (08:42→16:33)
[2022-01-21] MEDS: polyethylene glycoL 3350 17 GM POWD.PACK PO (08:43)
[2022-01-21] MEDS: PANTOPRAZOLE 40 MG TABLET PO (08:43)
[2022-01-21] MEDS: lisinopriL 20 MG TABLET 40 MG PO (08:43)
[2022-01-21] MEDS: ENOXAPARIN 40 MG/0.4 ML SYRINGE SUB-Q ×2 (08:43→20:43)
[2022-01-21] MEDS: amLODIPine BESYLATE 5 MG TABLET 10 MG PO (08:43)
[2022-01-21] MEDS: DOCUSATE SODIUM 100 MG CAPSULE PO ×2 (08:43→20:42)
[2022-01-21] MEDS: FOLIC ACID 1 MG TABLET PO (08:43)
[2022-01-21] MEDS: INSULIN ASPART (*BKC) 100 UNITS/ML SUB-Q ×6 (08:44→16:34)
[2022-01-21] MEDS: FUROSEMIDE INJ 40 MG/4 ML VIAL IV PUSH ×2 (08:45→20:43)
[2022-01-21] MEDS: TOLNAFTATE 1% POWDER 45 GM BTL 1 APPLIC TOPICAL ×2 (08:46→20:42)
--- NOTE | 2022-01-21 11:25 | P.CDI_ITS ---
CDI Query Clarification Request -01/17 Hospitalist documented: CHF (congestive heart failure): - Heart failure type: unspecified Heart failure chronicity: chronic Qualified Code(s): I50.9 - Heart failure, unspecified -I50.9 - Heart failure, unspecified Status: Acute - 01/17 documentation reads: chest x-ray showing cardiomegaly most likely patient has congestive heart failure being treated with the Lasix IV 40 mg b.i.d. secondary to exacerbation of COPD patient is being treated with Solu- Medrol and updraft as well as hypoventilation secondary to morbid obesity with BMI of 50 and patient transferrred to IMU please clarify if congestive heart failure is: systolic, diastolic, combined or unable to determine and if: -acute -chronic -acute on chronic -other -unable to determine
[2022-01-21 11:56] LABS: Glucose Point of Care 208 mg/dl (65-105)
--- NOTE | 2022-01-21 13:18 | PCRCNOTE ---
Window of time for administration has passed. See next scheduled administration.
[2022-01-21 16:21] LABS: Glucose Point of Care 270 mg/dl (65-105)
--- NOTE | 2022-01-21 17:08 | PM.IMPN ---
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ifactorial secondary to pneumonia chest x-ray showed Opacities in the bilateral mid and lower lung zones which could represent small bilateral posterior layering pleural effusions and associated atelectasis and/or pneumonia patient is being treated with levofloxacin, chest x-ray showing cardiomegaly most likely patient has congestive heart failure being treated with the Lasix IV 40 mg b.i.d. secondary to exacerbation of COPD patient is being treated with Solu-Medrol and updraft as well as hypoventilation secondary to morbid obesity with BMI of 50 and patient was transferred to IMU, currently his symptoms have improved patient is off BiPAP will continue to monitor and further recommendation to follow. 01/18/2022 interval history: today patient states feeling better see wore her BiPAP last currently patient is on 6 L nasal cannula will continue present management with levofloxacin for pneumonia, Lasix for congestive heart failure, Solu-Medrol updraft for COPD, and patient continue to have a hypoventilation secondary morbid obesity, once patient clinical symptoms improved will switch her over to oral Lasix and taper Solu-Medrol, repeat chest x-ray and further recommendation to follow, will have a PT OT evaluate the patient. 01/19/2022 interval history: today patient states feeling better she wore her BiPAP last currently patient is on 3 L nasal cannula, she is on 2L at home, will continue present management with levofloxacin for pneumonia, Lasix for congestive heart failure, Solu-Medrol updraft for COPD, and patient continue to have a hypoventilation secondary morbid obesity, once patient clinical symptoms improved will switch her over to oral Lasix and taper Solu-Medrol, repeat chest x-ray and further recommendation to follow, today patient is working with PT OT. 01/20/2022 interval history: today patient states feeling better she wore her BiPAP last currently patient is on 2 L nasal cannula, she is on 2L at home, she is sitting in the chair, will continue present management with levofloxacin for pneumonia, Lasix for congestive heart failure, Solu-Medrol updraft for COPD, and patient continue to have a hypoventilation secondary morbid obesity, once patient clinical symptoms improved will switch her over to oral Lasix and taper Solu-Medrol, repeat chest x-ray and further recommendation to follow, today patient is working with PT OT. Today patient stats she has not had BM in 1 week and not sure if she passing gas, will start her on colace and miralax, will do KUB to r/o SBO if needed will give the suppository. will continue to monitor. if remains clinically stable will discharge the patient tomorrow. 01/21/2022 interval history: today patient states feeling better she wore her BiPAP last currently patient is on 2 L nasal cannula, she is on 2L at home, she is sitting in the chair, will continue present management with levofloxacin for pneumonia, Lasix for congestive heart failure, Solu-Medrol updraft for COPD, and patient continue to have a hypoventilation secondary morbid obesity, once patient clinical symptoms improved will switch her over to oral Lasix and taper Solu-Medrol, repeat chest x-ray and further recommendation to follow, today patient is working with PT OT. on 01/20 patient stated she has not had BM in 1 week and not sure if she passing gas, started her on colace and miralax,
[2022-01-21 20:34] LABS: Glucose Point of Care 367 mg/dl (65-105)
[2022-01-21] MEDS: OLANZapine 5 MG TABLET 20 MG PO (20:42)
[2022-01-21] MEDS: lamoTRIgine 100 MG TABLET 200 MG PO (20:42)
[2022-01-21] MEDS: ESCITALOPRAM OXALATE 10 MG TABLET PO (20:42)
[2022-01-21] MEDS: INSULIN GLARGINE (*BKC) 100 UNITS/ML 40 UNITS SUB-Q (20:43)
[2022-01-22] VITALS (23 sets, daily range): BP systolic 106–122; BP diastolic 43–52; PULSE 46–62; RESP 18–20; TEMP 35.5–36.2; O2SAT 92–97
[2022-01-22] MEDS: ALBUTEROL SULFATE NEB 2.5 MG/0.5 ML INH 5 MG INHALATION ×4 (02:10→20:19)
[2022-01-22] MEDS: IPRATROPIUM BR 0.02% INH SOLN 0.5 MG/2.5 ML VIAL INHALATION ×4 (02:10→20:19)
[2022-01-22] MEDS: traMADol HCL (*CRX) 50 MG TABLET PO (06:12)
[2022-01-22 06:29] LABS: Hematocrit 30.6 % (37.0-47.0); Hemoglobin 9.2 g/dL (12.0-15.0); Immature Platelet Fraction Pct 8.6 % (0.9-11.2); Mean Corpuscular HGB Conc 30.1 g/dl (32-36); Mean Corpuscular Hemoglobin 28.8 pg (26-34); Mean Corpuscular Volume 95.6 fl (80-100); Mean Platelet Volume 10.9 fl (7.4-10.4); Platelet Count Result 135 k/mm3 (150-375); White Blood Count 4.8 K/mm3 (4.5-10.0)
[2022-01-22 06:39] LABS: Blood Urea Nitrogen 15 mg/dL (7-17); Calcium 8.3 mg/dL (8.4-10.2); Carbon Dioxide > 40 mmol/L (22-30); Chloride 85 mmol/L (98-107); Estimated CRCL calculation 60 ml/min; Estimated Glomerular Filt Rate 50; Glucose 240 mg/dL (65-110); Magnesium 1.8 mg/dL (1.6-2.3); Potassium 3.9 mmol/L (3.4-5.0); Sodium 133 mmol/L (137-145)
[2022-01-22 07:51] LABS: Glucose Point of Care 243 mg/dl (65-105)
[2022-01-22] MEDS: FUROSEMIDE INJ 40 MG/4 ML VIAL IV PUSH (08:17)
[2022-01-22] MEDS: amLODIPine BESYLATE 5 MG TABLET 10 MG PO (08:17)
[2022-01-22] MEDS: GABAPENTIN 300 MG CAPSULE PO ×3 (08:17→16:55)
[2022-01-22] MEDS: polyethylene glycoL 3350 17 GM POWD.PACK PO (08:17)
[2022-01-22] MEDS: DOCUSATE SODIUM 100 MG CAPSULE PO ×2 (08:17→21:29)
[2022-01-22] MEDS: PANTOPRAZOLE 40 MG TABLET PO (08:17)
[2022-01-22] MEDS: ENOXAPARIN 40 MG/0.4 ML SYRINGE SUB-Q ×2 (08:17→21:29)
[2022-01-22] MEDS: predniSONE 20 MG TABLET 60 MG PO (08:18)
[2022-01-22] MEDS: FOLIC ACID 1 MG TABLET PO (08:18)
[2022-01-22] MEDS: lisinopriL 20 MG TABLET 40 MG PO (08:19)
[2022-01-22] MEDS: TOLNAFTATE 1% POWDER 45 GM BTL 1 APPLIC TOPICAL ×2 (08:20→21:31)
[2022-01-22] MEDS: INSULIN ASPART (*BKC) 100 UNITS/ML SUB-Q ×7 (08:20→21:36)
--- NOTE | 2022-01-22 10:46 | PM.IMPN ---
Progress Note: A&P Assessment and Plan (1) Acute respiratory failure with hypoxia and hypercarbia: Code(s): J96.01 - Acute respiratory failure with hypoxia; J96.02 - Acute respiratory failure with hypercapnia Status: Acute Assessment and Plan: Multifactorial most likely related to acute on top of chronic diastolic CHF exacerbation community-acquired pneumonia obesity hypoventilation syndrome COPD exacerbation treated with nebulizer treatment steroid BiPAP antibiotics improved. (2) Pneumonia: Qualifiers: Laterality: unspecified laterality Lung location: unspecified part of lung Pneumonia type: due to unspecified organism Qualified Code(s): J18.9 - Pneumonia, unspecified organism Code(s): J18.9 - Pneumonia, unspecified organism Status: Acute Assessment and Plan: most likely community-acquired pneumonia being treated with levofloxacin will continue to monitor and follow chest x-ray (3) YAYA (obstructive sleep apnea): Code(s): G47.33 - Obstructive sleep apnea (adult) (pediatric) Status: Acute Assessment and Plan: patient with sleep apnea will continue BiPAP as needed (4) Morbidly obese: Code(s): E66.01 - Morbid (severe) obesity due to excess calories Status: Acute Assessment and Plan: patient with Rakan syndrome, 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 Anticipate discharge in a day or 2 once shortness of breath improved and after negative repeat blood culture Subjective Date/time seen: 01/22/22 10:46 Interval history: patient is a 66-year-old female in origin and nursing history of [place] syndrome morbidly obese patient was sent to emergency department with complaint of shortness of breath, patient with a acute respiratory failure secondary to hypercapnia patient CO2 was 72 on arrival patient was placed on BiPAP, suspect multifactorial secondary to pneumonia chest x-ray showed Opacities in the bilateral mid and lower lung zones which could represent small bilateral posterior layering pleural effusions and associated atelectasis and/or pneumonia patient is being treated with levofloxacin, chest x-ray showing cardiomegaly most likely patient has congestive heart failure being treated with the Lasix IV 40 mg b.i.d. secondary to exacerbation of COPD patient is being treated with Solu-Medrol as well as hypoventilation secondary to morbid obesity with BMI of 50 and patient was transferred to IMU, currently his symptoms have improved patient is off BiPAP will continue to monitor Patient feels still feel weak and short of breath table oral steroid today continue IV Lasix Blood culture was positive x2 probably contaminant repeat blood culture today Patient denies fever headache chest pain I am seeing the patient for COPD exacerbation Exam Narrative: morbidly obese Patient is comfortable, NAD HEENT: eyes are clear and none icteric LUNGS: bilateral poor air entry with rales and rhonchi HEART: RR S1S2 ABD: BS+, Soft and nontender Lower extremities: no edema SKIN: nonjaundiced Neuro: grossly intact. Objective Data Vital Signs Vital Signs: Vital Signs - 24 hr 01/21/22 12:00 01/21/22 14:00 01/21/22 14:22 Temperature 97.4 F L Pulse Rate 51 L 54 L 60 Respiratory Rate 18 16 Blood Pressure 115/57 L Pulse Oximetry 99 01/21/22 14:32 01/21/22 16:00 01/21/22 16:33 Temperature Pulse Rate 58 L 57 L 58 L Respiratory Rate 18 Blood Pressure Pulse Oximetry 93 01/21
[2022-01-22 11:42] LABS: Glucose Point of Care 299 mg/dl (65-105)
[2022-01-22 11:50] LABS: Alveolar/Arterial O2 Gradient 72.4 mmHg; Base Excess ABG 15.2 mEq/l (+/-2.0); Fractional Inspired Oxygen 28 %; HCO3 ABG 41.2 mEq/l (22.0-26.0); Oxygen Saturation ABG 90.8 % (95.0-100.0); PCO2 ABG 58.7 mmHg (35.0-45.0); PO2 FiO2 Ratio Arterial Blood 2.07 %; Total Hemoglobin 10.6 g/dL (12.0-18.0); pH ABG 7.464 (7.350-7.450)
[2022-01-22 11:55] LABS: Device NASAL CANNULA; Modified Allen's Test Pass; Oxyhemoglobin 86.9 % THb (90.0-100.0); Site Drawn RIGHT RADIAL
[2022-01-22] MEDS: ACETAMINOPHEN 325 MG TABLET 650 MG PO (12:02)
[2022-01-22 16:25] LABS: Glucose Point of Care 334 mg/dl (65-105)
[2022-01-22 20:28] LABS: Glucose Point of Care 328 mg/dl (65-105)
[2022-01-22] MEDS: OLANZapine 5 MG TABLET 20 MG PO (21:29)
[2022-01-22] MEDS: ESCITALOPRAM OXALATE 10 MG TABLET PO (21:29)
[2022-01-22] MEDS: lamoTRIgine 100 MG TABLET 200 MG PO (21:30)
[2022-01-22] MEDS: INSULIN GLARGINE (*BKC) 100 UNITS/ML 40 UNITS SUB-Q (21:36)
[2022-01-23] VITALS (8 sets, daily range): BP systolic 106–110; BP diastolic 45–50; PULSE 46–54; RESP 16–23; TEMP 35.9–36.3; O2SAT 94–98
[2022-01-23] MEDS: ALBUTEROL SULFATE NEB 2.5 MG/0.5 ML INH 5 MG INHALATION ×2 (01:52→09:53)
[2022-01-23] MEDS: IPRATROPIUM BR 0.02% INH SOLN 0.5 MG/2.5 ML VIAL INHALATION ×2 (01:52→09:53)
[2022-01-23 06:28] LABS: Basophils Percent Auto 0.4 % (0.2-1.2); Eosinophils Absolute Auto 0.2 K/mm3 (0-0.3); Eosinophils Percent Auto 3.2 % (0-4.4); Hematocrit 30.9 % (37.0-47.0); Hemoglobin 9.4 g/dL (12.0-15.0); Immature Granulocyte Absolute 0.05 K/mm3 (0.00-0.031); Immature Granulocyte Percent A 1.1 % (0-0.5); Immature Platelet Fraction Pct 8.9 % (0.9-11.2); Lymphocytes Absolute Auto 1.13 K/mm3 (0.9-3.2); Lymphocytes Percent Auto 24.1 % (18.3-44.2); Mean Corpuscular HGB Conc 30.4 g/dl (32-36); Mean Corpuscular Hemoglobin 28.1 pg (26-34); Mean Corpuscular Volume 92.5 fl (80-100); Mean Platelet Volume 11.2 fl (7.4-10.4); Monocytes Absolute Auto 0.5 K/mm3 (0.1-0.6); Monocytes Percent Auto 9.6 % (2.6-8.5); Neutrophils Absolute Auto 2.9 K/mm3 (1.3-6.7); Neutrophils Percent Auto 61.6 % (45.5-73.1); Platelet Count Result 117 k/mm3 (150-375); Red Blood Count 3.34 M/mm3 (4.2-5.4); Red Cell Distribution Width 14.6 % (11.5-14.5); White Blood Count 4.7 K/mm3 (4.5-10.0)
[2022-01-23 06:55] LABS: Alanine Aminotransferase 12 U/L (4-35); Albumin Level 3.4 g/dL (3.5-5.1); Alkaline Phosphatase 41 U/L (38-126); Aspartate Amino Transferase 19 U/L (14-36); Bilirubin,Total 0.6 mg/dL (0.2-1.3); Blood Urea Nitrogen 17 mg/dL (7-17); Calcium 8.7 mg/dL (8.4-10.2); Carbon Dioxide > 40 mmol/L (22-30); Chloride 87 mmol/L (98-107); Estimated CRCL calculation 60 ml/min; Estimated Glomerular Filt Rate 50; Glucose 250 mg/dL (65-110); Potassium 3.6 mmol/L (3.4-5.0); Sodium 133 mmol/L (137-145)
[2022-01-23 08:26] LABS: Glucose Point of Care 247 mg/dl (65-105)
[2022-01-23] MEDS: ENOXAPARIN 40 MG/0.4 ML SYRINGE SUB-Q (10:27)
[2022-01-23] MEDS: polyethylene glycoL 3350 17 GM POWD.PACK PO (10:27)
[2022-01-23] MEDS: predniSONE 20 MG TABLET 40 MG PO (10:28)
[2022-01-23] MEDS: PANTOPRAZOLE 40 MG TABLET PO (10:29)
[2022-01-23] MEDS: DOCUSATE SODIUM 100 MG CAPSULE PO (10:29)
[2022-01-23] MEDS: amLODIPine BESYLATE 5 MG TABLET 10 MG PO (10:29)
[2022-01-23] MEDS: FOLIC ACID 1 MG TABLET PO (10:29)
[2022-01-23] MEDS: GABAPENTIN 300 MG CAPSULE PO ×2 (10:29→12:38)
[2022-01-23] MEDS: INSULIN ASPART (*BKC) 100 UNITS/ML SUB-Q ×4 (10:30→12:38)
[2022-01-23] MEDS: acetaZOLAMIDE TAB 250 MG TABLET PO (10:30)
[2022-01-23] MEDS: TOLNAFTATE 1% POWDER 45 GM BTL 1 APPLIC TOPICAL (10:36)
[2022-01-23 11:47] LABS: Glucose Point of Care 312 mg/dl (65-105)
--- NOTE | 2022-01-23 12:33 | PM.DS ---
DS: Admitting Diagnosis Discharge Date 01/23/2022 Admitting Diagnosis Acute Resp Failure with Hypoxia And Hypercarbia DS: Discharge Diagnosis Discharge Diagnosis (1) Acute respiratory failure with hypoxia and hypercarbia: Code(s): J96.01 - Acute respiratory failure with hypoxia; J96.02 - Acute respiratory failure with hypercapnia Status: Acute (2) Morbidly obese: Code(s): E66.01 - Morbid (severe) obesity due to excess calories Status: Acute DS: Summary Hospital Course Reason for hospitalization: Acute Resp Failure with Hypoxia and Hypercarbia Hospital Course: 66-year-old female in origin and nursing history of Rakan syndrome morbidly obese patient was sent to emergency department with complaint of shortness of breath, patient with a acute respiratory failure secondary to hypercapnia patient CO2 was 72 on arrival patient was placed on BiPAP, was started on treatment with bronchodilators, abx, steroids and O2 support.Symptoms improved, was back to baseline in terms of O2 requirement, discharge in stable condition with advice to follow up with PCP. Status at Discharge Functional status at discharge: independent ambulation Overall status at discharge: patient is progressing back to baseline Time Spent with Patient Time attestation: Total time spent providing and/or coordinating discharge services: Time spent: Greater than 30 minutes Exam Const: General: comfortable and no acute distress Nutritional Appearance: obese HENMT: Mouth: Yes moist mucous membranes Eyes: Pupils: Equal, round and reactive pupils present Neck: Neck: supple Resp: Other: NC in place, decreased breath sounds B/L, no additonal sounds heard Cardio: Rate: regular rate Rhythm: regular rhythm GI: GI Palp: Yes Soft to palpation Auscultation: normal bowel sounds Extrem: General: edema Psych: Mental Status: mental status grossly normal DS: Data Data Completed and Pending Labs on day of discharge: Labs from last 24 hours 01/23/22 01/23/22 01/23/22 11:24 07:48 05:56 WBC RBC Hgb Hct MCV MCH MCHC RDW Plt Count MPV Immature Gran % (Auto) Neut % (Auto) Lymph % (Auto) Mcminn % (Auto) Eos % (Auto) Baso % (Auto) Lymph # (Auto) Mcminn # (Auto) Eos # (Auto) Baso # (Auto) Abs Immat Gran (auto) Absolute Neuts (auto) Absolute Nucleated RBC Nucleated RBC % % Immature Plt Fraction Sodium 133 L Potassium 3.6 Chloride 87 L Carbon Dioxide > 40 H Anion Gap BUN 17 Creatinine 1.10 H Estim Creat Clear Calc 60 Estimated GFR 50 L Glucose 250 H POC Capillary Glucose 312 H 247 H Calcium 8.7 Total Bilirubin 0.6 AST 19 ALT 12 Alkaline Phosphatase 41 Total Protein 6.0 L Albumin 3.4 L 01/23/22 01/22/22 01/22/22 05:56 19:59 16:09 WBC 4.7 RBC 3.34 L Hgb 9.4 L Hct 30.9 L MCV 92.5 MCH 28.1 MCHC 30.4 L RDW 14.6 H Plt Count 117 L MPV 11.2 H Immature Gran % (Auto) 1.1 H Neut % (Auto) 61.6 Lymph % (Auto) 24.1 Mcminn % (Auto) 9.6 H Eos % (Auto) 3.2 Baso % (Auto) 0.4 Lymph # (Auto) 1.13 Mcminn # (Auto) 0.5 Eos # (Auto) 0.2 Baso # (Auto) 0.0 Abs Immat Gran (auto) 0.05 H Absolute Neuts (auto) 2.9 Absolute Nucleated RBC 0.0 Nucleated RBC % 0.0 % Immature Plt Fraction 8.9 Sodium Potassium Chloride Carbon Dioxide Anion Gap BUN Creatinine Estim Creat Clear Calc Estimated GFR Glucose POC Capillary Glucose 328 H 334 H Calcium Total Bilirubin AST ALT Alkaline Phosphatase Total Protein Albumin Preliminary micro results at discharge 01/22/22 12:06 Blood Culture - Preliminary Blood 01/22/22 12:06 Blood Culture - Preliminary Blood Discharge Plan Discharge Attending physician on discharge: Tamy Cruz Discharging Clinician: Tamy Cruz
[2022-01-23 13:10] LABS: EDCOVIDSCREEN Negative (Negative)
--- NOTE | 2022-01-23 14:52 | PC.NURSE ---
On 01/23/22, the student, Catrina Ferreira, provided care and completed [facility] documentation on this patient. I have reviewed the student's documentation and agree with the findings.
== END 2022-01-23 15:18 | DRG 189 ==
LOC: ANHED 03:16 → ANHICU 04:17 → ANH3MEDSUR 01-19 09:52 → ANHICU 01-24 13:14
PROVIDERS: Family Medicine; Internal Medicine; Admitting Provider Internal Medicine; Emergency Provider Emergency Medicine; PCP Family Medicine; Visit Provider Internal Medicine
DX: J96.02 Acute respiratory failure with hypercapnia (principal); J18.9 Pneumonia, unspecified organism; I50.33 Acute on chronic diastolic (congestive) heart failure; Z68.43 Body mass index [BMI] 50.0-59.9, adult; E24.9 Cushing's syndrome, unspecified; J96.01 Acute respiratory failure with hypoxia; Z20.822 Contact with and (suspected) exposure to COVID-19; J43.9 Emphysema, unspecified; K21.9 Gastro-esophageal reflux disease without esophagitis; E78.5 Hyperlipidemia, unspecified; E11.9 Type 2 diabetes mellitus without complications; G47.33 Obstructive sleep apnea (adult) (pediatric); G25.81 Restless legs syndrome; E66.01 Morbid (severe) obesity due to excess calories; F32.9 Major depressive disorder, single episode, unspecified; Z82.49 Family history of ischemic heart disease and other diseases of the circulatory system; Z83.3 Family history of diabetes mellitus; Z82.3 Family history of stroke; Z79.899 Other long term (current) drug therapy; Z79.4 Long term (current) use of insulin; Z79.891 Long term (current) use of opiate analgesic; Z88.3 Allergy status to other anti-infective agents
CPT/HCPCS: 36415; 36600; 71045; 74018; 80048; 80053; 82805; 82948; 83735; 83880; 85025; 85027; 85055; 87040; 87086; 87147; 87181; 87186; 87426; 87804; 93005; 94002; 94003; 94640; 96374; 96375; 96376; 97110; 97161; 97165; 97530; 99291; A9270; C8929; C9803; G0378; J1650; J1815; J1940; J1956; J3475; J7512; Q9957

== ENCOUNTER 2022-04-05 17:08 | Emergency (ER) | payer MEDICARE, MEDICAID, SELFPAY ==
[2022-04-05 17:29] VITALS: BP 148/68; PULSE 77; RESP 20; TEMP 36.2; O2SAT 96
--- NOTE | 2022-04-05 17:52 | PC.NURSE ---
called pt back to triage to draw blood at 1750 and there was no response
[2022-04-05 18:40] VITALS: O2SAT 95
[2022-04-05 21:09] VITALS: BP 139/84; PULSE 81; RESP 20; TEMP 36.4; O2SAT 97
--- NOTE | 2022-04-05 21:27 | ED.FEMALEGU ---
HPI - Female Genitourinary General Chief complaint: Vaginal Bleeding Stated complaint: VAG BLEEDING X5D Time Seen by Provider: 04/05/22 20:41 Source: patient Mode of arrival: ambulatory Limitations: no limitations History of Present Illness HPI Narrative: This is a 66 year old female who presents for evaluation of vaginal bleeding and cramping. She developed vaginal bleeding on FridayMarch 31. She states she is postmenopausal. Her bleeding has flow of regular menstrual cycle some times, and other times she is spotting. Today she reports changing her depends 3 times today. She reports constant lower abdominal cramping since Friday. She denies fever, chills, nausea, vomiting, fever, diarrhea. On review of her chart, she has been prescribed Korlym but she states she has not taken that for at least 1 month. She denies chest pain, worsening shortness of breath, lightheadedness or dizziness. She has appointment with her napper grinder this morning for evaluation of this vaginal bleeding. Related Data Home Medications Medication Instructions Recorded Confirmed olanzapine 15 mg tablet 20 mg PO HS 11/11/19 01/17/22 escitalopram oxalate 10 mg tablet 10 mg PO HS 01/30/21 01/17/22 acetaminophen 325 mg tablet 650 mg PO Q6H PRN Pain 12/01/21 01/17/22 (Tylenol) amlodipine 10 mg tablet 10 mg PO DAILY 12/01/21 01/17/22 ergocalciferol (vitamin D2) 50,000 50,000 unit PO WEEKLY 12/01/21 01/17/22 unit tablet folic acid 1 mg tablet 1 mg PO DAILY 12/01/21 01/17/22 gabapentin 300 mg capsule 300 mg PO TID 12/01/21 01/17/22 insulin lispro 100 unit/mL 5 unit subcut TIDWM 12/01/21 01/18/22 subcutaneous solution lamotrigine 200 mg tablet 200 mg PO HS 12/01/21 01/17/22 (Lamictal) lisinopril 40 mg tablet 40 mg PO DAILY 12/01/21 01/17/22 magnesium citrate (Citroma oral 300 ml PO DAILY PRN Constipation 12/01/21 01/17/22 solution) magnesium hydroxide 400 mg/5 mL 30 ml PO HS PRN Constipation 12/01/21 01/17/22 oral suspension (Milk of Magnesia) mifepristone 300 mg tablet (Korlym) 600 mg PO DAILY 12/01/21 01/17/22 omeprazole 20 mg capsule,delayed 20 mg PO DAILY 12/01/21 01/17/22 release tiotropium bromide 1.25 2 puff inhalation DAILY 12/01/21 01/17/22 mcg/actuation mist for inhalation insulin glargine 100 unit/mL 40 unit subcut HS 01/17/22 01/17/22 subcutaneous solution umeclidinium 62.5 mcg/actuation 1 inh inhalation DAILY 01/17/22 01/17/22 blister powder for inhalation (Incruse Ellipta) Allergies Allergy/AdvReac Type Severity Reaction Status Date / Time amoxicillin Allergy Unknown Unknown Verified 01/17/22 01:09 aspirin Allergy Unknown Unknown Verified 01/17/22 01:09 cephalexin Allergy Unknown Rash Verified 01/17/22 01:09 Cephalosporins Allergy Unknown Unknown Verified 01/17/22 01:09 erythromycin base Allergy Unknown Rash Verified 01/17/22 01:09 meperidine Allergy Unknown Unknown Verified 01/17/22 01:09 naproxen Allergy Unknown Unknown Verified 01/17/22 01:09 oxycodone Allergy Unknown Unknown Verified 01/17/22 01:09 Penicillins Allergy Unknown Rash Verified 01/17/22 01:09 propoxyphene Allergy Unknown Unknown Verified 01/17/22 01:09 telithromycin Allergy Unknown Unknown Verified 01/17/22 01:09 tetracycline Allergy Unknown Unknown Verified 01/17/22 01:09 theophylline Allergy Unknown Unknown Verified 01/17/22 01:09 Review of Systems Review of Systems: All systems reviewed & are unremarkable except as noted in HPI and below Constitutional: Constitutional: Denies chills and Denies fatigue Cardiovascular: Cardiovascular: Denies chest pain and Denies rapid heart rate Respiratory: Respiratory: Denies chest congestion, Denies cough and Reports dyspnea (chronic on oxygen) Gastrointestinal: Gastrointestinal: Reports abdominal pain, Denies bloating and Denies constipation Genitourinary: Genitourinary: Reports abnormal vaginal bleeding PMF Past Medical History Medical History (Reviewed 04/05/22 @ 21:47 by Chanda Nixon
[2022-04-05 21:49] LABS: Alanine Aminotransferase 31 U/L (6-35); Albumin Level 4.1 g/dL (3.5-5.1); Alkaline Phosphatase 78 U/L (38-126); Anion Gap 6 mmol/L (8-16); Aspartate Amino Transferase 29 U/L (14-36); Bilirubin,Total 0.4 mg/dL (0.2-1.3); Blood Urea Nitrogen 18 mg/dL (7-17); Carbon Dioxide 32 mmol/L (22-30); Chloride 97 mmol/L (98-107); Estimated CRCL calculation 69 ml/min; Estimated Glomerular Filt Rate > 60; Glucose 268 mg/dL (65-110); Lipase 394 U/L (23-300); Potassium 4.2 mmol/L (3.4-5.0); Sodium 135 mmol/L (137-145)
[2022-04-05 21:50] LABS: Appearance Urine Clear (Clear); Bilirubin Urine Negative (Negative); Blood Urine 2+ (Negative); Color Urine Yellow (Yellow); Glucose Urine UA 3+ mg/dL (Negative); Ketones Urine Negative (Negative); Leukocyte Esterase Ur Negative LEU/UL (Negative); Nitrate Urine Negative (Negative); Protein Urine Negative (Negative); Urobilinogen Urine 0.2 mg/dL (<2.0); pH Urine 6.5 (5.0-9.0)
[2022-04-05 21:55] LABS: Squamous Epithelial Cell Urine Rare /hpf (Few)
[2022-04-05 21:57] LABS: Basophils Percent Auto 0.3 % (0.2-1.2); Eosinophils Absolute Auto 0.2 K/mm3 (0-0.3); Eosinophils Percent Auto 2.6 % (0-4.4); Hemoglobin 12.2 g/dL (12.0-15.0); Immature Granulocyte Absolute 0.04 K/mm3 (0.00-0.031); Immature Granulocyte Percent A 0.6 % (0-0.5); Lymphocytes Absolute Auto 1.68 K/mm3 (0.9-3.2); Lymphocytes Percent Auto 25.5 % (18.3-44.2); Mean Corpuscular HGB Conc 32.1 g/dl (32-36); Mean Corpuscular Hemoglobin 28.8 pg (26-34); Mean Corpuscular Volume 89.8 fl (80-100); Mean Platelet Volume 11.4 fl (7.4-10.4); Monocytes Absolute Auto 0.5 K/mm3 (0.1-0.6); Monocytes Percent Auto 8.1 % (2.6-8.5); Neutrophils Absolute Auto 4.1 K/mm3 (1.3-6.7); Neutrophils Percent Auto 62.9 % (45.5-73.1); Platelet Count Result 159 k/mm3 (150-375); Red Blood Count 4.23 M/mm3 (4.2-5.4); White Blood Count 6.6 K/mm3 (4.5-10.0)
[2022-04-05 22:00] LABS: Add Urine Microscopic? YES
[2022-04-05 22:04] VITALS: BP 161/68; PULSE 77; RESP 22; O2SAT 100
--- NOTE | 2022-04-06 00:56 | PC.NURSE ---
@[id number] called [facility] to request transport. ETA 0200 @0002 request [facility] to transport. Accepted @0004 cancelled [facility] @0055 [facility] here.
== END 2022-04-06 00:55 | disposition home or self-care (01) ==
PROVIDERS: Emergency Medicine; Emergency Provider General Practice; PCP Family Medicine
DX: N95.0 Postmenopausal bleeding (principal); I11.0 Hypertensive heart disease with heart failure; I50.9 Heart failure, unspecified; E78.5 Hyperlipidemia, unspecified; J44.9 Chronic obstructive pulmonary disease, unspecified; I25.2 Old myocardial infarction; E11.9 Type 2 diabetes mellitus without complications; Z79.4 Long term (current) use of insulin
CPT/HCPCS: 36415; 80053; 81001; 83690; 85025; 99283

== ENCOUNTER 2022-04-17 14:13 | Outpatient (CLI) | payer MEDICARE, MEDICAID, SELFPAY ==
--- NOTE | ~2022-04-17 | US_ITS ---
EXAMINATION: US pelvic complete w TV DATE: 04/17/2022 15:19 INDICATION: N93.9 - Abnormal uterine and vaginal bleeding, unspecified TECHNIQUE: Multiple transabdominal and endovaginal sonographic images of the pelvis were obtained. COMPARISON: 02/22/2008 FINDINGS: Uterus: 7.6 x 4.2 x 5.1 cm. Endometrial complex measures 0.5 cm. Somewhat heterogeneous appearing jojo rine parenchyma, without definite mass, may be related to fibroids or artifact from the scan. Right Ovary: Not visualized. No adnexal mass. Left Ovary: Not visualized. No adnexal mass. There is no free fluid in the pelvis. IMPRESSION: 1. Ovaries not visualized. 2. Heterogeneous uterine parenchyma, may be related to fibroid disease or artifact. Reviewed, dictated and finalized at location K. IMPRESSION: 1. Ovaries not visualized. 2. Heterogeneous uterine parenchyma, may be related to fibroid disease or artif act.
== END 2022-04-17 14:14 | disposition home or self-care (01) ==
PROVIDERS: PCP Family Medicine; Visit Provider Family Medicine
DX: N93.9 Abnormal uterine and vaginal bleeding, unspecified (principal)
CPT/HCPCS: 76830; 76856

== ENCOUNTER 2022-05-21 09:28 | Outpatient (CLI) | payer MEDICARE, MEDICAID, SELFPAY ==
--- NOTE | ~2022-05-21 | CT_ITS ---
EXAMINATION: CT abdomen pelvis w con DATE: 05/21/2022 10:08 INDICATION: Postmenopausal bleeding TECHNIQUE: Computed tomography (CT) of the abdomen and pelvis was performed with 100 CC Omnipaque 300 intravenous contrast. Automated exposure control and iterative reconstruction technique were employe d. Exam dose: 1465.74 mGy-cm total exam DLP. COMPARISON: 04/17/2022 pelvic ultrasound examination FINDINGS: Left lower lobe calcified pulmonary granuloma. No infiltrate or consolidation in the lung b ases. Heart size is within normal range. No pericardial or pleural effusion. Small sliding hiatal hernia. Status post cholecystectomy. No bile duct dilatation. No hepatic, splenic, pancreatic, and adrenal or renal space-occupying mass lesion. No urinary tract calculus or hydroureteronephrosis. Normal caliber of the abdominal aorta. No intraperitoneal or retroperitoneal or pelvic mass lesion or adenopathy or ascites. The uterus and adnexal areas and urinary bladder are unremarkable. Normal appendix. Diverticulosis of the sigmoid colon; no CT evidence of diverticulitis. No bowel obst ruction, bowel wall thickening, pneumatosis or intraperitoneal free air. [place] large umbilical hernia containing nonobstructed small bowel Hemangioma of left side of L1 vertebral body. Degenerative changes of the lower thoracic spine and degenerative disc disease of the lumbar spine, e specially L5-S1, with mild retrolisthesis at this level. IMPRESSION: Small sliding hiatal hernia Status post cholecystectomy Normal appendix Diverticulosis of sigmoid colon; no CT evidence of diverticulitis Wide umbilical hernia containing nonobstructed small bowel Reviewed, dictated and finalized at Location A. Reviewed, dictated and finalized at location B.
[2022-05-21 10:00] LABS: Estimated Glomerular Filt Rate 50
== END 2022-05-21 09:29 | disposition home or self-care (01) ==
PROVIDERS: PCP Family Medicine
DX: N95.0 Postmenopausal bleeding (principal); Z90.49 Acquired absence of other specified parts of digestive tract; K57.30 Diverticulosis of large intestine without perforation or abscess without bleeding; K42.9 Umbilical hernia without obstruction or gangrene; K44.9 Diaphragmatic hernia without obstruction or gangrene
CPT/HCPCS: 74177; Q9967

== ENCOUNTER 2022-06-14 10:13 | Outpatient (CLI) | payer MEDICARE, MEDICAID, SELFPAY ==
--- NOTE | ~2022-06-14 | MM_ITS ---
EXAMINATION: MM screening eagle BI w bonita HISTORY: Screening mammogram, family history of breast cancer in her mother. TECHNIQUE: Craniocaudal and mediolateral oblique 3-D tomosynthesis images were obtained and synthetic 2-D images were generated. CAD analysis was submitted and interpreted. COMPARISON: 09/09/2007 BREAST PARENCHYMAL COMPOSITION: There are scattered areas of fibroglandular density. FINDINGS: RIGHT BREAST: There is no suspicious mass, calcification, or architectural distortion to suggest yandy gnancy. There has been no significant interval change. LEFT BREAST: There is possible architectural distortion in the posterior third of the upper outer robert drant of the breast. IMPRESSION: 1. Possible left breast architectural distortion. 2. Additional mammographic views and possible breast ultrasound are recommended. BI-RADS Category 0: Incomplete: Needs additional imaging evaluation. Reviewed, dictated and finalized at location A. IMPRESSION: 1. Possible left breast architectural distortion. 2. Additional mammographic views and possible breast ultrasound are recommended . BI-RADS Category 0: Incomplete: Needs additional imaging evaluation.
== END 2022-06-14 10:14 | disposition home or self-care (01) ==
PROVIDERS: PCP Family Medicine
DX: Z12.31 Encounter for screening mammogram for malignant neoplasm of breast (principal); R92.8 Other abnormal and inconclusive findings on diagnostic imaging of breast
CPT/HCPCS: 77063; 77067

== ENCOUNTER 2022-09-17 13:06 | Outpatient (CLI) | payer MEDICARE, MEDICAID, SELFPAY ==
--- NOTE | ~2022-09-17 | MMUS_ITS ---
EXAMINATION: MM diagnostic eagle LT w bonita, US breast LT complete HISTORY: Possible architectural distortion seen on prior examination. TECHNIQUE: Additional 3-D tomosynthesis images of the left breast were performed and synthetic 2-D im ages were generated. CAD analysis was submitted and interpreted. High resolution complete left breast ultrasound was performed. COMPARISON: Comparison to multiple prior studies sequentially, with oldest reviewed study dated 01/19. BREAST PARENCHYMAL COMPOSITION: The breasts are heterogeneously dense, which may obscure small masses FINDINGS: MAMMOGRAPHIC FINDINGS: Study is extremely limited due to patient body habitus and immobility. Patient examination performed in a wheelchair. Limited mediolateral view due to obstructing abdomen. The area of asymmetry in the u pper aspect of the left breast posteriorly most likely represents superimposed fibroglandular tissue with spot compression views. This area is not visualized on medial lateral view. ULTRASOUND: Complete left breast US of all 4 quadrants of the breasts and retroareolar region was reviewed. At 1: 00, 10 cm from the nipple, there is an oval partially cystic 5 mm mass with parallel orientation, no internal vascularity or posterior features, likely benign. At 7:00, 6 cm from the nipple there is a 4 mm cyst. At 6:00, 5 cm from the nipple, there is complex heterogeneous hypoechoic soft tissue with p osterior shadowing. This ill-defined hypoechoic mass measures 2.3 x 1.0 x 1.0 cm. There is posterior shadowing. No internal vascularity. IMPRESSION: 1. Complex ill-defined heterogeneous shadowing mass at 6:00, 5 cm from the nipple. 2. Ultrasound-guided left breast biopsy recommended. BI-RADS category 4, suspicious findings. Reviewed, dictated and finalized at location A. CONTROLLER IMPRESSION: 1. Complex ill-defined heterogeneous shadowing mass at 6:00, 5 cm from the nipp le. 2. Ultrasound-guided left breast biopsy recommended. BI-RADS category 4, suspicious findings.
== END 2022-09-17 13:07 | disposition home or self-care (01) ==
PROVIDERS: PCP Family Medicine; Visit Provider Obstetrics & Gynecology
DX: R92.8 Other abnormal and inconclusive findings on diagnostic imaging of breast (principal)
CPT/HCPCS: 76641; 77061; 77065; G0279

== ENCOUNTER 2024-02-22 03:34 | Observation (INO) | payer MEDICARE, MEDICAID, SELFPAY ==
[2024-02-22] VITALS (44 sets, daily range): BP systolic 89–135; BP diastolic 38–80; PULSE 58–75; RESP 11–24; TEMP 36.1–36.4; O2SAT 91–99; BMI 47.5
--- NOTE | ~2024-02-22 | XR_ITS ---
XR chest 1V portable 02/22/2024 04:14 Indication: Chest pain Procedure: AP portable chest Comparison: No prior studies for comparison. Findings: Heart size normal. No focal air space disease, pulmonary edema, pleural effusion or suspect ed pneumothorax. Impression: 1: No acute cardiopulmonary disease. Reviewed, dictated and finalized at location A. Impression: 1: No acute cardiopulmonary disease.
--- NOTE | 2024-02-22 03:44 | ECG_ITS ---
SEE SCANNED COPY FOR CONFIRMED REPORT MTDD
--- NOTE | 2024-02-22 04:04 | ED.GENADULT ---
HPI - General Adult General Chief complaint: Dizziness <Marino Andino MD - Last Filed: 02/22/24 04:05> Stated complaint: dizziness <Marino Andino MD - Last Filed: 02/22/24 04:05> Time Seen by Provider: 02/22/24 06:58 <Marino Andino MD - Last Filed: 02/22/24 04:05> History of Present Illness HPI narrative: patient is a 68-year-old female who presents emergency department with chief complaint of lightheadedness and chest pain. The patient reports that she was at her nursing facility where she lives that and took a shower the patient states she had an episode of sharp pain in her chest but also reports she has been feeling lightheaded the patient was found have a blood pressure below 96 and was given some fluid by EMS in route to the emergency department the patient reports she is feeling better the patient currently denies chest pain. <Marino Andino MD - Last Filed: 02/22/24 04:05> Related Data Home medications: Home Medications Medication Instructions Recorded Confirmed olanzapine 15 mg tablet 20 mg PO HS 11/11/19 09/23/23 acetaminophen 325 mg tablet 650 mg PO Q6H PRN Pain 12/01/21 09/23/23 (Tylenol) amlodipine 10 mg tablet 10 mg PO DAILY 12/01/21 09/23/23 ergocalciferol (vitamin D2) 50,000 50,000 unit PO WEEKLY 12/01/21 09/23/23 unit tablet folic acid 1 mg tablet 1 mg PO DAILY 12/01/21 09/23/23 gabapentin 300 mg capsule 300 mg PO TID 12/01/21 09/23/23 lamotrigine 200 mg tablet 200 mg PO HS 12/01/21 09/23/23 (Lamictal) lisinopril 40 mg tablet 40 mg PO DAILY 12/01/21 09/23/23 magnesium citrate (Citroma oral 300 ml PO DAILY PRN Constipation 12/01/21 09/23/23 solution) magnesium hydroxide 400 mg/5 mL 30 ml PO HS PRN Constipation 12/01/21 09/23/23 oral suspension (Milk of Magnesia) omeprazole 20 mg capsule,delayed 20 mg PO DAILY 12/01/21 09/23/23 release umeclidinium 62.5 mcg/actuation 1 inh inhalation DAILY 01/17/22 09/23/23 blister powder for inhalation (Incruse Ellipta) bisacodyl 10 mg rectal suppository 10 mg RECTAL DAILY PRN 08/14/23 09/23/23 melatonin 3 mg tablet 3 mg PO QHS 08/14/23 09/23/23 melatonin 5 mg tablet 5 mg PO QHS 08/14/23 09/23/23 trazodone 50 mg tablet 25 mg PO QHS PRN 08/14/23 09/23/23 <Marino Andino MD - Last Filed: 02/22/24 04:05> Allergies/adverse reactions: Allergies Allergy/AdvReac Type Severity Reaction Status Date / Time amoxicillin Allergy Unknown Unknown Verified 02/22/24 03:41 aspirin Allergy Unknown Unknown Verified 02/22/24 03:41 cephalexin Allergy Unknown Rash Verified 02/22/24 03:41 Cephalosporins Allergy Unknown Unknown Verified 02/22/24 03:41 erythromycin base Allergy Unknown Rash Verified 02/22/24 03:41 meperidine Allergy Unknown Unknown Verified 02/22/24 03:41 naproxen Allergy Unknown Unknown Verified 02/22/24 03:41 oxycodone Allergy Unknown Unknown Verified 02/22/24 03:41 Penicillins Allergy Unknown Rash Verified 02/22/24 03:41 propoxyphene Allergy Unknown Unknown Verified 02/22/24 03:41 telithromycin Allergy Unknown Unknown Verified 02/22/24 03:41 tetracycline Allergy Unknown Unknown Verified 02/22/24 03:41 theophylline Allergy Unknown Unknown Verified 02/22/24 03:41 <Marino Andino MD - Last Filed: 02/22/24 04:05> Review of Systems Review of Systems: A 10 system review of systems was completed on the patient and is negative except for what is stated in the HPI. Nursing and ancillary documentation was reviewed. <Marino Andino MD - Last Filed: 02/22/24 04:05> [facility] Past Medical History Medical History: Medical History Adenomatous colon polyp Bipolar affect, depressed CHF (congestive heart failure) Chronic low back pain Colon cancer screening COPD (chronic obstructive pulmonary disease) Trenton syndrome Dysphagia Emphysema lung GERD without esophagitis Heart attack may
--- NOTE | 2024-02-22 04:25 | PC.NURSE ---
pt requested to be straight catheterized due to feeling weak and dizzy at this time. pt is uncomfortable to walk at this time. pt states she normally is wheelchair bound.
[2024-02-22 04:52] LABS: Appearance Urine Clear (Clear); Bilirubin Urine Negative (Negative); Blood Urine Negative (Negative); Color Urine Yellow (Yellow); Glucose Urine UA Negative (Negative); Ketones Urine Negative (Negative); Leukocyte Esterase Ur Negative LEU/UL (Negative); Nitrate Urine Negative (Negative); Protein Urine Negative (Negative); Specific Grav Ur 1.017 (1.001-1.035)
[2024-02-22 05:08] LABS: Add Urine Microscopic? NO
[2024-02-22 05:58] LABS: Basophils Percent Auto 0.3 % (0.2-1.2); Eosinophils Absolute Auto 0.1 K/mm3 (0-0.3); Eosinophils Percent Auto 1.3 % (0-4.4); Hematocrit 36.3 % (37.0-47.0); Hemoglobin 11.7 g/dL (12.0-15.0); Immature Granulocyte Absolute 0.02 K/mm3 (0.00-0.031); Immature Granulocyte Percent A 0.3 % (0-0.5); Lymphocytes Absolute Auto 1.42 K/mm3 (0.9-3.2); Lymphocytes Percent Auto 18.7 % (18.3-44.2); Mean Corpuscular HGB Conc 32.2 g/dl (32-36); Mean Corpuscular Hemoglobin 31.1 pg (26-34); Mean Corpuscular Volume 96.5 fl (80-100); Mean Platelet Volume 11.9 fl (7.4-10.4); Monocytes Absolute Auto 0.6 K/mm3 (0.1-0.6); Monocytes Percent Auto 7.9 % (2.6-8.5); Neutrophils Absolute Auto 5.4 K/mm3 (1.3-6.7); Neutrophils Percent Auto 71.5 % (45.5-73.1); Platelet Count Result 127 k/mm3 (150-375); Red Blood Count 3.76 M/mm3 (4.2-5.4); Red Cell Distribution Width 13.1 % (11.5-14.5); White Blood Count 7.6 K/mm3 (4.5-10.0)
[2024-02-22 06:12] LABS: Magnesium 1.9 mg/dL (1.6-2.3)
[2024-02-22 06:13] LABS: Alanine Aminotransferase 20 U/L (6-35); Alkaline Phosphatase 87 U/L (38-126); Anion Gap 3 mmol/L (4-12); Aspartate Amino Transferase 18 U/L (14-36); Bilirubin,Total 0.8 mg/dL (0.2-1.3); Blood Urea Nitrogen 21 mg/dL (7-17); Calcium 8.9 mg/dL (8.4-10.2); Carbon Dioxide 32 mmol/L (22-30); Chloride 100 mmol/L (98-107); Estimated CRCL calculation 46 ml/min; Estimated Glomerular Filt Rate 55; Glucose 161 mg/dL (65-110); Lactic Acid Reflex 0.8 mmol/L (0.7-2.0); Potassium 4.2 mmol/L (3.4-5.0); Sodium 135 mmol/L (137-145)
[2024-02-22 06:22] LABS: NT Pro B Type Natriuretic Pept < 20 pg/mL (19.9-100)
[2024-02-22 06:25] LABS: Troponin I < 0.012 ng/mL (0.000-0.034)
[2024-02-22 06:30] LABS: Procalcitonin 0.1 ng/mL
[2024-02-22 06:34] LABS: Influenza A QL RT-PCR Negative (Negative); Influenza B QL RT-PCR Negative (Negative); RSV RNA, RT-PCR Negative (Negative); SARS-CoV-2 RNA PCR Negative (Negative)
--- NOTE | 2024-02-22 07:25 | ECG_ITS ---
SEE SCANNED COPY FOR CONFIRMED REPORT MTDD
[2024-02-22 07:53] LABS: Troponin I < 0.012 ng/mL (0.000-0.034)
--- NOTE | 2024-02-22 13:16 | ADMGEN ---
This patient, Vida Castañeda, was admitted to [facility] Surg Room 312-01 at 1145. Patient/family oriented to hospital policies and general routines including ID bracelet, bed and alarms, visiting hours, pain management, procedures, bathroom and other care routines, personal items, smoking policy, room service/diet, and visiting hours. Information on how to activate the Rapid Response Team has been discussed. Patient/Family are encouraged to report perceived risks to care and to ask questions if they do not understand what they are told or what they should do.
--- NOTE | 2024-02-22 13:42 | PM.IMHP ---
H&P: HPI History of Present Illness Date/Time: 02/22/24 13:42 Chief Complaint: Dizziness, Lightheadedness Narrative: 68 y/o F presents here with dizziness and lightheadedness with PMH of bipolar affective disorder, COPD on home O2, jazmin's, GERD, [place] (2018), HLD, HTN, DM2 on insulin, obesity, YAYA, and RLS. Patient presents here via EMS from [facility] for further evaluation of dizziness and lightheadedness with standing. Patient reports dizziness and lightheadedness after taking a shower around 1:30 a.m., staff members present. Lightheadedness was accompanied by sharp chest pain, described as nonradiating, intermittent and lasting a total of 30 seconds. Resolved without intervention. States the lightheadedness and dizziness occurs with standing, no other precipitating factors. Initial BP upon EMS arrival was 96/palp which improved with IV fluids. Denies dysarthria, vision changes, focal weakness, focal numbness, ataxia. Patient utilizes a wheelchair or a walker, felt it was more difficult to get around due to generalized weakness today. Denies congestion or URI symptoms recently. Denies any new medications. Initial VS at presentation: 97.0F, HR 64, RR 20, 105/49, and 91% on RA. Placed on 2L NC (baseline requirement) and increased to 99%. ED workup showed: no leukocytosis, mild anemia (chronic), platelet count 127, CO2 32, creatinine 1.0 and GFR 55, glucose 161, lactic acid 0.8, initial troponin negative, and procalcitonin 0.1. UA not consistent with UTI. Viral PCR negative. CXR showed no acute cardiopulmonary disease. Review of Systems Review of Systems: All systems reviewed & are unremarkable except as noted in HPI and below [facility] Past Medical History Medical History Adenomatous colon polyp Bipolar affect, depressed CHF (congestive heart failure) Chronic low back pain Colon cancer screening COPD (chronic obstructive pulmonary disease) Thornton syndrome Dysphagia Emphysema lung GERD without esophagitis Heart attack march 2018 History of home oxygen therapy Hyperlipidemia, unspecified Hypertension IDDM (insulin dependent diabetes mellitus) Left knee pain Lower extremity edema Morbidly obese YAYA (obstructive sleep apnea) Osteoarthritis Right knee pain RLS (restless legs syndrome) Trochanteric bursitis Trochanteric bursitis, left hip Vaginal bleeding Weight gain Surgical History Surgical History History of cholecystectomy (~04/1992) Hx of tooth extraction (~03/2021) Family History Family History Mother Hypertension Family history of diabetes mellitus in first degree relative Family history of coronary artery disease Family history of malignant neoplasm of breast in first degree relative Patient's mother is , Onset Age: 62 Family history of chronic obstructive pulmonary disease Father Hypertension Diabetes mellitus Grandparent Cerebrovascular accident Diabetes mellitus Sibling Family history of diabetes mellitus in first degree relative Diabetes mellitus Patient's sister is in good health Patient's brother is in good health Family history of neuropathy Social History Social History Smoking status: Never smoker Second hand tobacco smoke exposure: No Alcohol intake: never Substance use: never Substance use type: does not use Do You Feel Safe in your Home?: Yes Lack of Transportation: No Lack of Food: Never True Current Housing: I Do Not Have Housing Concerned About Future Housing: No Difficulty Paying Gas/Electric Bills: No Difficulty Paying for Meds: No Currently Unemployed: No Education: Decline to Answer Difficulty w/ Childcare or Family Care: No Living arrangements: alone Additional living arrangements comments: HAS CAREGIVER
[2024-02-22 16:50] LABS: Glucose Point of Care 227 mg/dl (65-105)
[2024-02-22] MEDS: INSULIN ASPART (*BKC) 100 UNITS/ML SUB-Q ×2 (17:39→21:45)
[2024-02-22] MEDS: INSULIN GLARGINE (*BKC) 100 UNITS/ML 35 UNITS SUB-Q (22:04)
[2024-02-22] MEDS: GABAPENTIN 300 MG CAPSULE PO (22:05)
[2024-02-22] MEDS: MELATONIN 5 MG TABLET PO (22:05)
[2024-02-22] MEDS: traMADol HCL (*CRX) 50 MG TABLET PO (22:06)
[2024-02-22] MEDS: FLUTICASONE/SALMETEROL 115-21 MCG INHALER 1 PUFF 2 PUFF INHALATION (22:15)
[2024-02-22] MEDS: OLANZapine 5 MG TABLET 20 MG PO (22:16)
[2024-02-22] MEDS: lamoTRIgine 100 MG TABLET 200 MG PO (22:17)
[2024-02-22] MEDS: traZODone HCL 25 MG TABLET PO (22:18)
[2024-02-22] MEDS: ONDANSETRON HCL ODT 4 MG TABLET PO (22:23)
[2024-02-23] VITALS (9 sets, daily range): BP systolic 113–138; BP diastolic 43–69; PULSE 62–77; RESP 16–20; TEMP 35.9–36.4; O2SAT 96–100; BMI 47.9
[2024-02-23 05:30] LABS: Glucose Point of Care 234 mg/dl (65-105)
[2024-02-23] MEDS: GABAPENTIN 300 MG CAPSULE PO ×2 (06:23→14:48)
[2024-02-23] MEDS: ONDANSETRON HCL ODT 4 MG TABLET PO ×2 (06:23→11:41)
[2024-02-23 06:32] LABS: Basophils Percent Auto 0.2 % (0.2-1.2); Eosinophils Absolute Auto 0.1 K/mm3 (0-0.3); Hematocrit 36.7 % (37.0-47.0); Hemoglobin 11.6 g/dL (12.0-15.0); Immature Granulocyte Absolute 0.02 K/mm3 (0.00-0.031); Immature Granulocyte Percent A 0.4 % (0-0.5); Immature Platelet Fraction Pct 8.7 % (0.9-11.2); Lymphocytes Absolute Auto 1.29 K/mm3 (0.9-3.2); Lymphocytes Percent Auto 23.4 % (18.3-44.2); Mean Corpuscular HGB Conc 31.6 g/dl (32-36); Mean Corpuscular Hemoglobin 30.5 pg (26-34); Mean Corpuscular Volume 96.6 fl (80-100); Mean Platelet Volume 11.4 fl (7.4-10.4); Monocytes Absolute Auto 0.5 K/mm3 (0.1-0.6); Monocytes Percent Auto 8.3 % (2.6-8.5); Neutrophils Absolute Auto 3.6 K/mm3 (1.3-6.7); Neutrophils Percent Auto 65.7 % (45.5-73.1); Platelet Count Result 129 k/mm3 (150-375); Red Cell Distribution Width 13.1 % (11.5-14.5); White Blood Count 5.5 K/mm3 (4.5-10.0)
[2024-02-23 06:46] LABS: Anion Gap 2 mmol/L (4-12); Blood Urea Nitrogen 15 mg/dL (7-17); Calcium 9.5 mg/dL (8.4-10.2); Carbon Dioxide 35 mmol/L (22-30); Chloride 100 mmol/L (98-107); Estimated CRCL calculation 68 ml/min; Estimated Glomerular Filt Rate > 60; Glucose 193 mg/dL (65-110); Potassium 4.2 mmol/L (3.4-5.0); Sodium 137 mmol/L (137-145)
[2024-02-23] MEDS: FLUTICASONE/SALMETEROL 115-21 MCG INHALER 1 PUFF 2 PUFF INHALATION (07:55)
[2024-02-23] MEDS: UMECLIDINIUM BROMIDE 62.5 MCG ELLIPTA 1 PUFF INHALATION (07:56)
[2024-02-23 08:05] LABS: Glucose Point of Care 199 mg/dl (65-105)
--- NOTE | 2024-02-23 09:10 | PM.IMPN ---
Progress Note: A&P Assessment and Plan (1) Lightheadedness: Code(s): R42 - Dizziness and giddiness Status: Acute Assessment and Plan: - CXR: no acute cardiopulmonary disease. - troponin: <0.012 x2 - EKG, initial: Sinus rhythm, low QRS voltage in precordial leads, moderate intraventricular conduction delay, nonspecific T-wave abnormality, awaiting formal read. - orthostatics attempted in ED, patient reported lightheadedness with standing so were unable to obtain. continue Qshift. - procalcitonin 0.1 - UA unremarkable - viral PCR negative for flu/covid/rsv - BNP <20 - suspect orthostatic hypotension. on amlodipine 10 mg PO, Lasix 40 mg PO, and carvedilol 12.5 mg b.i.d. for HTN. continuing amlodipine and Lasix and holding carvedilol. (2) Uncontrolled type 2 diabetes mellitus with hyperglycemia: Code(s): E11.65 - Type 2 diabetes mellitus with hyperglycemia Status: Acute Assessment and Plan: - hypoglycemia protocol - POC blood glucose ACHS - home medications: Humulin U 500 insulin 70 units before breakfast, 45 units before lunch and 45 units before dinner and Ozempic 1 mg SQ weekly (both NF). dosing was discussed with pharmacy, conversion of Humulin equates to 40u of Lantus BID, started conservativly at 35u HS given diet will be more regimented and dosing size. reviewed chart and patient was given 30 of Lantus once daily during previous admission in 2021. - correct regimen ordered - high dose TIDWM and HS - A1C 7.0 (3) CHF (congestive heart failure): Qualifiers: Heart failure type: unspecified Heart failure chronicity: chronic Qualified Code(s): I50.9 - Heart failure, unspecified Code(s): I50.9 - Heart failure, unspecified Status: Acute Assessment and Plan: - BNP <20 - most recent echo (2021): LV mildly enlarged with normal function, mild wall thickness, and EF 55-60% LV diastolic dysfunction grade 3 LA mildly enlarged trace MV and TV regurgitation no pulm HTN - currently on: lasix 40 mg daily and euvolemic on exam. Hypotensive in ED, may need to hold diuretic. Holding 1/2 HTN med to correct. - daily weights - monitor I&Os - trend renal function (4) Hypertension: Qualifiers: Hypertension type: essential hypertension Qualified Code(s): I10 - Essential (primary) hypertension Code(s): I10 - Essential (primary) hypertension Status: Acute Assessment and Plan: - chronic, currently 113/50 but has been intermittently hypotensive during workup in ED - home medications: continue amlodipine 10 mg PO, hold carvedilol 12.5 mg b.i.d. - monitor Subjective Date/time seen: 02/23/24 09:10 Interval history: 68 year old female with past medical history of bipolar affective disorder, COPD on home O2, jazmin's, GERD, [place] (2018), HLD, HTN, DM2 on insulin, obesity, YAYA, and RLS presents to the hospital from [facility] for dizziness and lightheadedness. Review of Systems Review of Systems: All systems reviewed & are unremarkable except as noted in HPI and below Exam Narrative: AF General: well nourished, well-developed female in no acute respiratory distress who is nontoxic appearing, lying semi recumbent in bed. HEENT: Normocephalic. Atraumatic. Pupils equal round reactive to light. Extraocular movement intact. Sclera clear and anicteric. Nares patent. No oral lesions. Moist mucous membranes. Tongue is midline. Palate lisseth symmetrically. No facial asymmetry. Neck: Neck was supple. No dominant adenopathy, thyromegaly or masses. 2+ carotid upstrokes without bruits. Chest: Lungs are clear to auscultation bilaterlly. No wheezes or crackles. CV: Heart was regular rate and rhythm. S1-S2. No murmurs, gallops, or rubs. Abd: Abdomen was soft. Nontender. Nondistended. Postive bowel sounds. No organomegaly or masses. Ext: No clubbing, cyanosis, or edema. 2+ DP pulses bilaterally. Neuro: Patient is alert and oriented x4. Strenth is 5/5 in
[2024-02-23] MEDS: ATORVASTATIN 40 MG TABLET 80 MG PO (09:27)
[2024-02-23] MEDS: FOLIC ACID 1 MG TABLET PO (09:27)
[2024-02-23] MEDS: CELECOXIB 100 MG CAPSULE PO (09:27)
[2024-02-23] MEDS: lisinopriL 20 MG TABLET 40 MG PO (09:27)
[2024-02-23] MEDS: amLODIPine BESYLATE 5 MG TABLET 10 MG PO (09:27)
[2024-02-23] MEDS: FUROSEMIDE 40 MG TABLET PO (09:27)
[2024-02-23] MEDS: PANTOPRAZOLE 40 MG TABLET PO (09:28)
[2024-02-23 11:20] LABS: Glucose Point of Care 254 mg/dl (65-105)
[2024-02-23] MEDS: INSULIN ASPART (*BKC) 100 UNITS/ML SUB-Q (12:39)
--- NOTE | 2024-02-23 13:17 | PM.DS ---
DS: Admitting Diagnosis Discharge Date 02/23/24 Admitting Diagnosis lightheadedness uncontrolled type 2 diabetes mellitus with hyperglycemia congestive heart failure hypertension DS: Discharge Diagnosis Discharge Diagnosis (1) Lightheadedness: Code(s): R42 - Dizziness and giddiness Status: Acute (2) Uncontrolled type 2 diabetes mellitus with hyperglycemia: Code(s): E11.65 - Type 2 diabetes mellitus with hyperglycemia Status: Acute (3) Hypertension: Qualifiers: Hypertension type: essential hypertension Qualified Code(s): I10 - Essential (primary) hypertension Code(s): I10 - Essential (primary) hypertension Status: Acute (4) CHF (congestive heart failure): Qualifiers: Heart failure type: unspecified Heart failure chronicity: chronic Qualified Code(s): I50.9 - Heart failure, unspecified Code(s): I50.9 - Heart failure, unspecified Status: Acute DS: Summary Hospital Course Reason for hospitalization: lightheadedness uncontrolled type 2 diabetes mellitus with hyperglycemia congestive heart failure hypertension Hospital Course: 68 year old female with past medical history of bipolar affective disorder, COPD on home O2, jazmin's, GERD, [place] (2018), HLD, HTN, DM2 on insulin, obesity, YAYA, and RLS presents to the hospital from [facility] for dizziness and lightheadedness. Patient reports that she was showering at 1:30 am and became increasingly dizzy and lightheaded. She states that the lightheadedness has happened in the past when she was showering as well. The lightheadedness was accompanied by sharp nonradiating chest pain lasting 30 seconds and resolved without intervention. On arrival to the ED troponins were negative, EKG showed sinus rhythm, low QRS voltage in precordial leads, moderate intraventricular conduction delay, nonspecific T-wave abnormality. UA was unremarkable, viral PCR negative, BNP WNL, chest XR without cardiopulmonary disease. Concern for orthostatic hypotension secondary to patients current hypertension regimen being lisinopril 40 mg PO, amlodipine 10 mg PO, Lasix 40 mg PO, and carvedilol 12.5 mg b.i.d.. The carvedilol was held and blood pressures normalized. Orthostatic blood pressures were obtained and normal. Patient no longer having dizziness/lightheadedness, chest pain or palpitations. Discussed with patient the change in her blood pressure medications and that she will follow up with her primary care provider at [facility] to reassess current regimen. Also discussed with patient that warm showers can further lower blood pressure due to the dilation of vessels. Advised patient to sit down if she again feels lgihtheaded especially in the shower to avoid a fall. On discharge she denies lightheadedness/dizziness, chest pain, shortness of breath, palpitations, nausea/vomiting. Patient discharged to [facility] in a stable condition. She will follow up with her primary care provider in 1 week to reassess medication changes and discuss admission. Time Spent with Patient Time attestation: Total time spent providing and/or coordinating discharge services: Time spent: Greater than 30 minutes Exam Narrative: AF HR 65 RR 16 SpO2 100 2L BP 114/68 General: female in no acute respiratory distress who is nontoxic appearing, sitting up in bed. HEENT: Normocephalic. Atraumatic. Pupils equal round reactive to light. Extraocular movement intact. Sclera clear and anicteric. No facial asymmetry. Chest: Lungs are clear to auscultation bilaterally. No wheezes or crackles. NC. CV: Heart was regular rate and rhythm. S1-S2. No murmurs, gallops, or rubs. Abd: Abdomen was soft. Nontender. Nondistended. Positive bowel sounds. No organomegaly or masses. Ext: No clubbing, cyanosis, or edema. 2+ DP pulses bilaterally. Neuro: Patient is alert and oriented x4. Speech is clear. Psych: Normal mood and affect. Patient is pleasant and cooperative. Skin: Warm and dry. No rashes
== END 2024-02-23 15:20 ==
LOC: ANHED 10:16 → ANH3MEDSUR 02-23 13:16
PROVIDERS: Emergency Medicine; Student in an Organized Health Care Education/Training Program; Admitting Provider General Practice; Emergency Provider Preventive Medicine Aerospace Medicine; Visit Provider Hospitalist
DX: R42 Dizziness and giddiness (principal); E11.65 Type 2 diabetes mellitus with hyperglycemia; I11.0 Hypertensive heart disease with heart failure; I50.9 Heart failure, unspecified; I45.4 Nonspecific intraventricular block; J44.9 Chronic obstructive pulmonary disease, unspecified; J43.9 Emphysema, unspecified; Z99.89 Dependence on other enabling machines and devices; Z99.81 Dependence on supplemental oxygen; Z20.822 Contact with and (suspected) exposure to COVID-19; F31.9 Bipolar disorder, unspecified; E24.9 Cushing's syndrome, unspecified; K21.9 Gastro-esophageal reflux disease without esophagitis; I25.2 Old myocardial infarction; G47.33 Obstructive sleep apnea (adult) (pediatric); E66.01 Morbid (severe) obesity due to excess calories; Z68.42 Body mass index [BMI] 45.0-49.9, adult; E78.5 Hyperlipidemia, unspecified; G89.29 Other chronic pain; M54.50 Low back pain, unspecified; Z79.51 Long term (current) use of inhaled steroids; Z79.4 Long term (current) use of insulin; Z79.899 Other long term (current) drug therapy
CPT/HCPCS: 36415; 71045; 80048; 80053; 81003; 82948; 83036; 83605; 83735; 83880; 84145; 84484; 85025; 85055; 87637; 93005; 94640; 99285; A9270; G0378; J1815

== ENCOUNTER 2024-04-12 08:09 | Emergency (ER) | payer MEDICARE, SELFPAY ==
--- NOTE | ~2024-04-12 | CT_ITS ---
CTA chest PE protocol Ordering provider: Bruno Corral MD History: 68 years Female with . CP . Comparison: None. Technique: CT angiogram chest was performed following timed intravenous injection of contrast. Thin s lice axial images and reformatted coronal images were obtained. Three dimensional reformatted images of the chest were also obtained using a [employer] workstation. Radiation reduction technique utilized. Findings: PULMONARY ARTERIES: No pulmonary embolus. VISUALIZED THORACIC INLET: Normal. Calcified areas seen in the left thyroid most likely mobile. Follo w-up advised. MEDIASTINUM: Aorta/coronary arteries: Mild atheromatous disease. Heart/other: The heart is not enlarged. Lymph nodes: No mediastinal or hilar adenopathy. LUNGS: No pulmonary nodules or masses. No effusion or pneumothorax. Opacification the lingula suggestive of pneumonia. Focal area of pneumonia and the left lower lobe. Minimal pleural thickening seen posterior ly. VISUALIZED UPPER ABDOMEN: Thickening of the lower esophagus which may indicate reflux esophagitis. Ot herwise, the visualized upper abdomen is normal. MUSCULOSKELETAL: Soft tissues: The superficial soft tissues are normal. Bones: Age appropriate degenerative changes of the spine. Hemangioma of L1. IMPRESSION: 1. No pulmonary embolism. 2. Focal Pneumonia in the lingula and left lower lobe. 3. Thickening of the lower esophagus which may indicate reflux esophagitis. Reviewed, dictated and finalized at location A.
--- NOTE | ~2024-04-12 | XR_ITS ---
Clinical Indication: Chest pain PA and lateral views of the chest: Comparison: 02/22/2024 Findings: The lungs are clear, without evidence of focal consolidation or pleural effusion. Cardiome diastinal silhouette is within normal limits. Bones and soft tissues are unremarkable. Impression: Clear lungs. Reviewed, dictated and finalized at location . Impression: Clear lungs.
[2024-04-12 08:12] VITALS: BP 118/50; PULSE 63; RESP 16; TEMP 36.5; O2SAT 96; O2SAT 98
--- NOTE | 2024-04-12 08:14 | ECG_ITS ---
Test Date: 2024-04-12 08:18:26 Measurements Intervals [employer] Rate: 63 P: 65 CO: 175 QRS: 11 QRSD: 100 T: 37 QT: 367 QTc: 377 Interpretive Statements BASELINE ARTIFACT, REDUCED ECG QUALITY SINUS RHYTHM LOW QRS VOLTAGE IN PRECORDIAL LEADS [QRS DEFLECTION < 1.0 mV IN CHEST LEADS] GROSSLY NO SIGNIFICANT ABNORMALITIES SEEN No previous ECG available for comparison Electronically Signed On 04-12-2024 13:04:27 CDT by Oren Kim M.D.
[2024-04-12 08:20] VITALS: PULSE 61; O2SAT 96
[2024-04-12 08:51] LABS: Basophils Percent Auto 0.3 % (0.2-1.2); Eosinophils Absolute Auto 0.1 K/mm3 (0-0.3); Eosinophils Percent Auto 1.5 % (0-4.4); Hematocrit 29.8 % (37.0-47.0); Hemoglobin 10.3 g/dL (12.0-15.0); Immature Granulocyte Absolute 0.02 K/mm3 (0.00-0.031); Immature Granulocyte Percent A 0.3 % (0-0.5); Immature Platelet Fraction Pct 8.3 % (0.9-11.2); Lymphocytes Absolute Auto 1.26 K/mm3 (0.9-3.2); Lymphocytes Percent Auto 18.8 % (18.3-44.2); Mean Corpuscular HGB Conc 34.6 g/dl (32-36); Mean Corpuscular Hemoglobin 31.1 pg (26-34); Mean Platelet Volume 11.1 fl (7.4-10.4); Monocytes Absolute Auto 0.4 K/mm3 (0.1-0.6); Monocytes Percent Auto 6.6 % (2.6-8.5); Neutrophils Absolute Auto 4.9 K/mm3 (1.3-6.7); Neutrophils Percent Auto 72.5 % (45.5-73.1); Platelet Count Result 128 k/mm3 (150-375); Red Blood Count 3.31 M/mm3 (4.2-5.4); Red Cell Distribution Width 13.2 % (11.5-14.5); White Blood Count 6.7 K/mm3 (4.5-10.0)
[2024-04-12 08:58] LABS: Alanine Aminotransferase 18 U/L (6-35); Albumin Level 4.1 g/dL (3.5-5.1); Alkaline Phosphatase 77 U/L (38-126); Anion Gap 6 mmol/L (4-12); Aspartate Amino Transferase 18 U/L (14-36); Bilirubin,Total 0.8 mg/dL (0.2-1.3); Blood Urea Nitrogen 18 mg/dL (7-17); Carbon Dioxide 29 mmol/L (22-30); Chloride 86 mmol/L (98-107); Estimated CRCL calculation 62 ml/min; Estimated Glomerular Filt Rate 55; Glucose 204 mg/dL (65-110); Lipase 132 U/L (23-300); Potassium 3.7 mmol/L (3.4-5.0); Sodium 121 mmol/L (137-145)
[2024-04-12 09:10] LABS: Troponin I < 0.012 ng/mL (0.000-0.034)
[2024-04-12 09:12] LABS: Prothrombin Time 13.8 Seconds (11.1-14.7)
[2024-04-12 09:13] LABS: Partial Thromboplastin Time 31.9 Seconds (22.3-36.8)
[2024-04-12] MEDS: MORPHINE SULFATE (*CRX) 4 MG/ML INJ IV PUSH (09:31)
[2024-04-12 09:36] VITALS: BP 101/54; PULSE 61; RESP 16; TEMP 36.6; O2SAT 98
[2024-04-12 10:22] VITALS: BP 107/55; PULSE 63; RESP 16; TEMP 36.6; O2SAT 98
[2024-04-12 11:00] VITALS: BP 98/62; PULSE 60; RESP 18; TEMP 36.6; O2SAT 98
--- NOTE | 2024-04-12 11:15 | PC.NURSE ---
Pt to up to [facility] with x1 assist. Tolerated well
--- NOTE | 2024-04-12 11:43 | ECG_ITS ---
Test Date: 2024-04-12 11:52:14 Measurements Intervals [employer] Rate: 58 P: 57 AK: 207 QRS: 9 QRSD: 110 T: 42 QT: 370 QTc: 363 Interpretive Statements SINUS BRADYCARDIA OTHERWISE NORMAL ELECTROCARDIOGRAM Compared to ECG 04/12/2024 08:18:26 CURRENT ELECTROCARDIOGRAM IS OF BETTER QUALITY Electronically Signed On 04-12-2024 13:08:01 CDT by Oren Kim M.D.
[2024-04-12 11:54] LABS: Troponin I < 0.012 ng/mL (0.000-0.034)
--- NOTE | 2024-04-12 11:54 | PC.NURSE ---
Three hour EKG completed. Pt states My heart stopped hurting after you gave me the medicine.
[2024-04-12 11:55] VITALS: BP 101/60; PULSE 58; RESP 14; TEMP 36.6; O2SAT 99
--- NOTE | 2024-04-12 12:22 | ED.CHESTPAIN ---
HPI - Chest Pain General Chief Complaint: Chest Pain Stated Complaint: chest pain x 3 days Time Seen by Provider: 04/12/24 08:52 History of Present Illness HPI narrative: Patient is a 68-year-old female who presents ER with 3 days of central chest pain. Sharp. Worsening today. Has cough but no fevers or chills or sweats. Pain is worse with deep breath. Patient is wheelchair-bound. No history of DVT. Related Data Home Medications Medication Instructions Recorded Confirmed olanzapine 15 mg tablet 20 mg PO HS 11/11/19 02/22/24 acetaminophen 325 mg tablet 650 mg PO Q6H PRN Pain 12/01/21 02/22/24 (Tylenol) amlodipine 10 mg tablet 10 mg PO DAILY 12/01/21 02/22/24 ergocalciferol (vitamin D2) 50,000 50,000 unit PO WEEKLY 12/01/21 02/22/24 unit tablet folic acid 1 mg tablet 1 mg PO DAILY 12/01/21 02/22/24 gabapentin 300 mg capsule 300 mg PO TID 12/01/21 02/22/24 lamotrigine 200 mg tablet 200 mg PO HS 12/01/21 02/22/24 (Lamictal) lisinopril 40 mg tablet 40 mg PO DAILY 12/01/21 02/22/24 magnesium citrate (Citroma oral 300 ml PO DAILY PRN Constipation 12/01/21 02/22/24 solution) magnesium hydroxide 400 mg/5 mL 30 ml PO HS PRN Constipation 12/01/21 02/22/24 oral suspension (Milk of Magnesia) omeprazole 20 mg capsule,delayed 20 mg PO DAILY 12/01/21 02/22/24 release umeclidinium 62.5 mcg/actuation 1 inh inhalation DAILY 01/17/22 02/22/24 blister powder for inhalation (Incruse Ellipta) bisacodyl 10 mg rectal suppository 10 mg RECTAL DAILY PRN constipation 08/14/23 02/22/24 melatonin 3 mg tablet 3 mg PO QHS 08/14/23 02/22/24 melatonin 5 mg tablet 5 mg PO QHS 08/14/23 02/22/24 trazodone 50 mg tablet 25 mg PO QHS PRN Insomnia 08/14/23 02/22/24 budesonide-formoterol HFA 160 2 puff inhalation Q12H 02/22/24 02/22/24 mcg-4.5 mcg/actuation aerosol inhaler (Symbicort) celecoxib 100 mg capsule 100 mg PO DAILY 02/22/24 02/22/24 hydrocodone 5 mg-acetaminophen 325 1 tablet PO HS PRN Pain, Severe 02/22/24 02/22/24 mg tablet ipratropium 0.5 mg-albuterol 3 mg 3 ml inhalation Q4H PRN Shortness 02/22/24 02/22/24 (2.5 mg base)/3 mL nebulization Of Breath Or Wheezing soln lidocaine 3.5 % topical patch 1 patch topical DAILY 02/22/24 02/22/24 ondansetron HCl 4 mg tablet 4 mg PO Q6H 02/22/24 02/22/24 Allergies Allergy/AdvReac Type Severity Reaction Status Date / Time amoxicillin Allergy Unknown Anaphylactic Verified 04/12/24 08:25 Shock aspirin Allergy Unknown Unknown Verified 04/12/24 08:25 cephalexin Allergy Unknown Rash Verified 04/12/24 08:25 Cephalosporins Allergy Unknown Anaphylactic Verified 04/12/24 08:25 Shock erythromycin base Allergy Unknown Rash Verified 04/12/24 08:25 meperidine Allergy Unknown Unknown Verified 04/12/24 08:25 naproxen Allergy Unknown Rash Verified 04/12/24 08:25 oxycodone Allergy Unknown Unknown Verified 04/12/24 08:25 Penicillins Allergy Unknown Rash Verified 04/12/24 08:25 propoxyphene Allergy Unknown Unknown Verified 04/12/24 08:25 telithromycin Allergy Unknown Unknown Verified 04/12/24 08:25 tetracycline Allergy Unknown Rash Verified 04/12/24 08:25 theophylline Allergy Unknown Unknown Verified 04/12/24 08:25 Review of Systems Review of Systems: All systems reviewed & are unremarkable except as noted in HPI and below Constitutional: Constitutional: Reports no additional constitutional complaints ENT: Reports system reviewed and no additional complaints, except as documented Cardiovascular: Cardiovascular: Reports chest pain, Denies rapid heart rate and Denies radiating jaw, neck or arm pain Respiratory: Respiratory: Denies chest congestion, Reports cough, Denies dyspnea and Denies wheezing Gastrointestinal: Gastrointestinal: Reports no additional gastrointestinal complaints PMFSH Past Medical History Medical History Adenomatous colon polyp Bipolar affect, depressed CHF (congestive heart failure) Chronic low back siria
--- NOTE | 2024-04-12 12:58 | PC.NURSE ---
Dietary called for lunch tray per MD orders.
== END 2024-04-12 14:16 ==
PROVIDERS: Emergency Provider Emergency Medicine
DX: J18.9 Pneumonia, unspecified organism (principal); I50.9 Heart failure, unspecified; I25.2 Old myocardial infarction; J44.9 Chronic obstructive pulmonary disease, unspecified; J43.9 Emphysema, unspecified; E24.9 Cushing's syndrome, unspecified; E11.9 Type 2 diabetes mellitus without complications; E66.01 Morbid (severe) obesity due to excess calories; Z68.42 Body mass index [BMI] 45.0-49.9, adult; G47.33 Obstructive sleep apnea (adult) (pediatric); G25.81 Restless legs syndrome; K21.9 Gastro-esophageal reflux disease without esophagitis; M19.90 Unspecified osteoarthritis, unspecified site; Z99.3 Dependence on wheelchair; Z86.010 Personal history of colon polyps; Z90.49 Acquired absence of other specified parts of digestive tract; Z79.85 Long-term (current) use of injectable non-insulin antidiabetic drugs; Z79.4 Long term (current) use of insulin; Z79.899 Other long term (current) drug therapy; R00.1 Bradycardia, unspecified
CPT/HCPCS: 36415; 71046; 71275; 80053; 83690; 84484; 85025; 85055; 85610; 85730; 93005; 96374; 99284; J2270; Q9967

== ENCOUNTER 2025-09-12 14:01 | Outpatient (CLI) | payer MEDICARE, OTHER, SELFPAY ==
--- OUTSIDE RECORDS SUMMARY | 2025-09-12 14:12 | XMS_ITS | Data Portability ---
Author Organization DAMION FRANCESCAMirlande Hastings Address [address] [place] [address] Care Team Providers Care Pole Framer Name Role Phone [facility] Personal Carer OSMIN LONGORIA Product Safety Compliance Leader Assessment No assessment recorded. Plan of Treatment Reminders Order Date Submit Date Provider Last Modified By Organization Details Last Modified Time Details Appointments None record ed. Lab cytolo gy report , thin prep, smear or scrapi ng, cervic al or vagina l 2021 022 [facility], [address] [facility], [address], [place], [address], 16:12:05 biopsy , endome trial 2021 022 [place] [address] [facility], [address] [facility], [address], [place], [address], 17:13:07 pathol ogy study 2021 022 [facility], [address] [facility], [address], [place], [address], 16:11:17 CBC w/ auto diff 2021 022 [facility], [address], [address], [place], [address], 2 08:19:20 cytolo gy report , thin prep, smear or scrapi ng, cervic al or vagina l 2021 [facility], [address] [place] [address], [address], [place], [address], 2 20:08:12 vagina l pathog ens panel, MARCELINO+pr obe, vagina l fluid 2021 [facility], [address] [place] [address], [address], [place], [address], 2 10:37:32 BMP, serum or plasma 2021 [facility] [place], [address] [place] [address], [address], [place], [address], 2 08:19:20 Referral gyneco logic oncolo gist referr al 2021 [facility], [address] [facility], [place], [address], 3 17:31:25 Procedures None record ed. Surgeries None record ed. Imaging MAMMO, screen ing, digita l, bilate ral 2021 [facility] ([facility]), [address] [place], [address], 2 11:53:13 MAMMO, screen ing, digita l, bilate ral 2021 [facility], [address] [place] [address] [address] [facility], [place], [address], 2 13:38:50 CT, abdome n + pelvis , w/ contra st - unsucc essful endome trial biopsy in office . Evalua te postme nopaus al bleedi ng, endome trial stripe . GFR>63 and Cr 0.94. 2021 022 [facility], [address] [facility] [address], [place], [address], 09:12:48 MAMMO, screen ing, bilate ral 2020 021 [facility] ([facility]), [address], [place], [address], 17:28:30 Medication Orders flucon azole 150 mg tablet 2021 022 [email or web address] Not available 15:28:33 flucon azole 150 mg tablet 2020 021 [email or web address] Not available 15:28:33 Patient TargetsNo targets recorded. Patient Instructions Encounter Date Encounter Id Patient Instructions Last Modified By Organization Details Last Modified Time 11/13/2020 [id number] mammogram: about this test [email or web address] Not available 11/13/2020 15:51:38 When You Want to Lose Weight: Care Instructions [email or web address] Not available 11/13/2020 15:55:15 chronic obstructive pulmonary disease (COPD): care instructions mwasserman Not available 11/13/2020 15:55:15 learning about copd and how to prevent lung infections mwasserman Not available 11/13/2020 15:55:15 type 2 diabetes: care instructions mwasserman Not available 11/13/2020 15:55:15 vaginal yeast infection: care instructions mwasserman Not available 11/13/2020 15:54:39 heart failure: care instructions mwasserman Not available 11/13/2020 15:55:15 learning about heart failure mwasserman Not available 11/13/2020 15:55:15 06/10/2022 [id number] mammogram: about this test Not available 06/10/2022 17:13:07 vaginal bleeding after menopause: care instructions Not available 06/10/2022 17:13:07 Reason for Referral Gynecologic Oncologist 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 Referring Physician: Petr Mendoza, SHINGLE CARRIER, Encounter Date: 07/05/2022 Results Created Date Observation Date Name Description Value Unit Range Abnormal Flag Note LastModifiedBy Organization Detail LastModifiedTime 04/29/20 22 04/30/2022 CBC WITH DIFFE RENTI AL/PL ATELE T WBC 5.4 x10e3 /uL 3.4-10 .8 Not Available [facility] ([facility]) [address] [facility], [place], [address], 04/30/2022 08:19:20 04/29/20 22 04/30/2022 CBC WITH DIFFE RENTI AL/PL ATELE T RBC 4.13 x10e6 /uL 3.77-5 .28 Not Available [facility] ([facility]) [address] [facility], [place], [address], 04/30/2022 08:19:20 04/29/20 22 04/30/2022 CBC WITH DIFFE RENTI AL/PL ATELE T hemoglobin 12.2 g/dL 11.1-1 5.9 Not Available [facility] ([facility]) [address] [facility], [place], [address], 04/30/2022 08:19:20 04/29/20 22 04/30/2022 CBC WITH DIFFE RENTI AL/PL ATELE T hematocrit 37.6 % 34.0-4 6.6 Not Available [facility] ([facility]) [address] [place], [address], 04/30/2022 08:19:20 04/29/20 22 04/30/2022 CBC WITH DIFFE RENTI AL/PL ATELE T MCV 91 fL 79-97 Not Available [facility] ([facility]) [address] [place], [address], 04/30/2022 08:19:20 04/29/20 22 04/30/2022 CBC WITH DIFFE RENTI AL/PL ATELE T MCH 29.5 pg 26.6-3 3.0 Not Available [facility] ([facility]) [address] [place], [address], 04/30/2022 08:19:20 04/29/20 22 04/30/2022 CBC WITH DIFFE RENTI AL/PL ATELE T MCHC 32.4 g/dL 31.5-3 5.7 Not Available [facility] ([facility]) [address] [facility], [place], [address], 04/30/2022 08:19:20 04/29/20 22 04/30/2022 CBC WITH DIFFE RENTI AL/PL ATELE T RDW 15.3 % 11.7-1 5.4 Not Available [facility] ([facility]) [address] [facility], [place], [address], 04/30/2022 08:19:20 04/29/20 22 04/30/2022 CBC WITH DIFFE RENTI AL/PL ATELE T platelets 165 x10e3 /uL 150-45 0 Not Available [facility] ([facility]) [address] [facility], [place], [address], 04/30/2022 08:19:20 04/29/20 22 04/30/2022 CBC WITH DIFFE RENTI AL/PL ATELE T neutrophils 63 % not estab. Not Available [facility] ([facility]) [address] [facility], [place], [address], 04/30/2022 08:19:20 04/29/20 22 04/30/2022 CBC WITH DIFFE RENTI AL/PL ATELE T lymphs 24 % not estab. Not Available [facility] ([facility]) [address] [facility], [place], [address], 04/30/2022 08:19:20 04/29/20 22 04/30/2022 CBC WITH DIFFE RENTI AL/PL ATELE T monocytes 8 % not estab. Not Available [facility] ([facility]) [address] [facility], [place], [address], 04/30/2022 08:19:20 04/29/20 22 04/30/2022 CBC WITH DIFFE RENTI AL/PL ATELE T eos 2 % not estab. Not Available [facility] ([facility]) [address] [place], [address], 04/30/2022 08:19:20 04/29/20 22 04/30/2022 CBC WITH DIFFE RENTI AL/PL ATELE T basos 1 % not estab. Not Available [facility] ([facility]) [address] [facility], [place], [address], 04/30/2022 08:19:20 04/29/20 22 04/30/2022 CBC WITH DIFFE RENTI AL/PL ATELE T immature cells COMPETITIVE INTELLIGENCE ANALYST Not Available [facility] ([facility]) [address] [place], [address], 04/30/2022 08:19:20 04/29/20 22 04/30/2022 CBC WITH DIFFE RENTI AL/PL ATELE T neutrophils (absolute) 3.5 x10e3 /uL 1.4-7. 0 Not Available [facility] ([facility]) [address] [place], [address], 04/30/2022 08:19:20 04/29/20 22 04/30/2022 CBC WITH DIFFE RENTI AL/PL ATELE T lymphs (absolute) 1.3 x10e3 /uL 0.7-3. 1 Not Available [facility] ([facility]) [address] [place], [address], 04/30/2022 08:19:20 04/29/20 22 04/30/2022 CBC WITH DIFFE RENTI AL/PL ATELE T monocytes(ab solute) 0.4 x10e3 /uL 0.1-0. 9 Not Available [facility] ([facility]) [address] [place], [address], 04/30/2022 08:19:20 04/29/20 22 04/30/2022 CBC WITH DIFFE RENTI AL/PL ATELE T eos (absolute) 0.1 x10e3 /uL 0.0-0. 4 Not Available [facility] ([facility]) [address] [facility], [place], [address], 04/30/2022 08:19:20 04/29/20 22 04/30/2022 CBC WITH DIFFE RENTI AL/PL ATELE T baso (absolute) 0.0 x10e3 /uL 0.0-0. 2 Not Available [facility] ([facility]) [address] [facility], [place], [address], 04/30/2022 08:19:20 04/29/20 22 04/30/2022 CBC WITH DIFFE RENTI AL/PL ATELE T immature granulocytes 2 % not estab. Not Available [facility] ([facility]) [address] [facility], [place], [address], 04/30/2022 08:19:20 04/29/20 22 04/30/2022 CBC WITH DIFFE RENTI AL/PL ATELE T immature grans (abs) 0.1 x10e3 /uL 0.0-0. 1 Not Available [facility] ([facility]) [address] [facility], [place], [address], 04/30/2022 08:19:20 04/29/20 22 04/30/2022 CBC WITH DIFFE RENTI AL/PL ATELE T NRBC COMPETITIVE INTELLIGENCE ANALYST Not Available [facility] ([facility]) [address] [facility], [place], [address], 04/30/2022 08:19:20 04/29/20 22 04/30/2022 CBC WITH DIFFE RENTI AL/PL ATELE T hematology comments: COMPETITIVE INTELLIGENCE ANALYST Not Available [facility] ([facility]) [address] [facility], [place], [address], 04/30/2022 08:19:20 04/29/20 22 04/30/2022 BASIC METAB OLIC PANEL (8) glucose 199 mg/dL 65-99 above high normal Not Available [facility] ([facility]) [address] [place], [address], 04/30/2022 08:19:20 04/29/20 22 04/30/2022 BASIC METAB OLIC PANEL (8) BUN 14 mg/dL 8-27 Not Available [facility] ([facility]) [address] [place], [address], 04/30/2022 08:19:20 04/29/20 22 04/30/2022 BASIC METAB OLIC PANEL (8) creatinine 1.04 mg/dL 0.57-1 .00 above high normal Not Available [facility] ([facility]) [address] [place], [address], 04/30/2022 08:19:20 04/29/20 22 04/30/2022 BASIC METAB OLIC PANEL (8) eGFR 59 mL/mi n/1.7 3 >59 below low normal Not Available [facility] ([facility]) [address] [place], [address], 04/30/2022 08:19:20 04/29/20 22 04/30/2022 BASIC METAB OLIC PANEL (8) BUN/creatini ne ratio 13 12-28 Not Available [facility] ([facility]) [address] [place], [address], 04/30/2022 08:19:20 04/29/20 22 04/30/2022 BASIC METAB OLIC PANEL (8) sodium 139 mmol/ L 134-14 4 Not Available [facility] ([facility]) [address] [place], [address], 04/30/2022 08:19:20 04/29/20 22 04/30/2022 BASIC METAB OLIC PANEL (8) potassium 4.2 mmol/ L 3.5-5. 2 Not Available [facility] ([facility]) [address] [facility], [place], [address], 04/30/2022 08:19:20 04/29/20 22 04/30/2022 BASIC METAB OLIC PANEL (8) chloride 97 mmol/ L 96-106 Not Available [facility] ([facility]) [address] [facility], [place], [address], 04/30/2022 08:19:20 04/29/20 22 04/30/2022 BASIC METAB OLIC PANEL (8) carbon dioxide, total 30 mmol/ L 20-29 above high normal Not Available [facility] ([facility]) [address] [facility], [place], [address], 04/30/2022 08:19:20 04/29/20 22 04/30/2022 BASIC METAB OLIC PANEL (8) calcium 9.5 mg/dL 8.7-10 .3 Not Available [facility] ([facility]) [address] [facility], [place], [address], 04/30/2022 08:19:20 04/29/20 22 04/30/2022 LITHO LINK CKD PROGR AM interpretati on Note Medic al Direc tor's Note: Effec tive 2021, [facility] uses the 2020 CKD-E PI creat inine equat ion witho ut a race facto r to calcu late and repor t eGFR resul ts. eGFR resul ts repor renuka prior to this date using the 2008 CKD-E PI equat ion are no longe r inclu ded in this repor t inter preta tion. Suppl ement al repor t is avail able. Not Available [facility] ([facility]) [address] [facility], [place], [address], 04/30/2022 08:19:21 04/29/20 22 04/30/2022 LITHO LINK CKD PROGR AM pdf . Not Available [facility] ([facility]) [address] [facility], [place], [address], 04/30/2022 08:19:21 04/29/20 22 04/30/2022 NUSWA B VAGIN ITIS PLUS (VG+) atopobium vaginae Low - 0 score Not Available [facility] ([facility]) [address] [facility], [place], [address], 05/01/2022 10:37:32 04/29/20 22 04/30/2022 NUSWA B VAGIN ITIS PLUS (VG+) bvab 2 Low - 0 score Not Available [facility] ([facility]) [address] [facility], [place], [address], 05/01/2022 10:37:32 04/29/20 22 04/30/2022 NUA B VAGIN ITIS PLUS (VG+) megasphaera 1 Low - 0 score Calcu late total score by navarro eagle the 3 indiv idual bacte rial vagin osis (BV) marke r score s toget her. Total score is inter prete d as follo ws: Total score 0-1: Indic ates the absen ce of BV. Total score 2: Indet ermin ate for BV. Addit ional clini yanna data shoul d be evalu ated to estab bradley a diagn osis. Total score 3-6: Indic ates the prese nce of BV. This test was devel oped and its perfo rmanc e melissa cteri stics deter mined by [facility]. It has not been clear ed or appro chantal by the Food and Drug Admin istra tion. Not Available [facility] ([facility]) [address] [facility], [place], [address], 05/01/2022 10:37:32 04/29/20 22 05/01/2022 NUA B VAGIN ITIS PLUS (VG+) adrienne albicans, MARCELINO Positi ve negati ve abnormal Not Available [facility] ([facility]) [address] [facility], [place], [address], 05/01/2022 10:37:32 04/29/20 22 05/01/2022 [facility] B VAGIN ITIS PLUS (VG+) adrienne glabrata, MARCELINO Positi ve negati ve abnormal Publi shed data demon strat e that up to 65% of Bharti da glabr judy ident ified in cases of vagin al bharti diasi s have decre ased susce ptibi lity to fluco nazol e. Not Available [facility] ([facility]) [address] [facility], [place], [address], 05/01/2022 10:37:32 04/29/20 22 05/01/2022 NUA B VAGIN ITIS PLUS (VG+) trich vag by AMRCELINO Negati ve negati ve Not Available [facility] ([facility]) [address] [place], [address], 05/01/2022 10:37:32 04/29/20 22 05/01/2022 [facility] B VAGIN [facility]IS [facility]US (VG+) chlamydia trachomatis, MARCELINO Negati ve negati ve Not Available [facility] ([facility]) [address] [place], [address], 05/01/2022 10:37:32 04/29/20 22 05/01/2022 [facility] B VAGIN ITIS PLUS (VG+) neisseria gonorrhoeae, MARCELINO Negati ve negati ve Not Available [facility] ([facility]) [address] [place], [address], 05/01/2022 10:37:32 04/29/20 22 05/01/2022 PATHO LOGY REPOR T . Commen t Mater ial submi tted: . endom etriu m - ENDOM ETRIA L BIOPS Y Not Available [facility] ([facility]) [address] [place], [address], 05/01/2022 16:11:17 04/29/20 22 05/01/2022 PATHO LOGY REPOR T . Commen t Clini yanna histo ry: . STENO TIC CERVI X, MULTI PLE ATTEM PTS WITH LITTL E CELLU LAR MATER IAL Not Available [facility] ([facility]) [address] [facility], [place], [address], 05/01/2022 16:11:17 04/29/20 22 05/01/2022 PATHO LOGY REPOR T . Commen t Diagn osis: ENDOM ETRIA L BIOPS Y: SCANT Y YIELD OF BENIG N ENDOC ERVIC AL TISSU E COMME NT EVALU ABLE UTERI NE CORPU S ENDOM ETRIU M IS NOT REPRE SENTCarlos DNicolás CLINI YANNA CORRE LATIO N AND PATIE NT FOLLO WUP ARE RECOM MARY LOU DNicolás GXA 05/01 1457 Local Not Available [facility] ([facility]) [address] [facility], [place], [address], 05/01/2022 16:11:17 04/29/20 22 05/01/2022 PATHO LOGY REPOR T . Commen t Elect abner castrejon d: . Eulogio barrios MD, Patho logis t Not Available [facility] ([facility]) [address] [place], [address], 05/01/2022 16:11:17 04/29/20 22 05/01/2022 PATHO LOGY REPOR T . Commen t Gross descr iptio n: . 1 Conta iner, forma pretty-f illed , label ed with patie nt ident ifica tion. ENDOM ETRIA L BIOPS Y: SCANT FRAGM ENT(S ) OF MUCUS AND HEMOR RHAGI C MATER IAL MEASU RING 0.5 X 0.5 X 0.1 CM IN AGGRE GATE. FILTE RED AND SUBMI TTED IN CASSE TTE(S ) A1. THE SPECI MEN MAY NOT SURVI VE PROCE SSING . MCL/M CL 04/30 1006 Local Not Available [facility] ([facility]) [address] [facility], [place], [address], 05/01/2022 16:11:17 04/29/20 22 05/01/2022 PATHO LOGY REPOR T . Sonia t Patho logis t provi ded ICD-1 0: N92.5 Not Available [facility] ([facility]) [address] [facility], [place], [address], 05/01/2022 16:11:17 04/29/20 22 05/01/2022 PATHO LOGY REPOR T . Sonia t CPT . 33354 1 Not Available [facility] ([facility]) [address] [facility], [place], [address], 05/01/2022 16:11:17 04/29/20 22 05/01/2022 IGP, APTIM A HPV, RFX 16/18 ,45 diagnosis: Sonia romero UNSAT ISFAC TORY FOR EVALU ATION . Not Available [facility] ([facility]) [address] [facility], [place], [address], 05/01/2022 20:08:12 04/29/20 22 05/01/2022 IGP, APTIM A HPV, RFX 16/18 ,45 recommendati on: Sonia romero [address] st follo w up as clini fina appro priat e. Not Available [facility] ([facility]) [address] [facility], [place], [address], 05/01/2022 20:08:12 04/29/20 22 05/01/2022 IGP, APTIM A HPV, RFX 16/18 ,45 specimen adequacy: Sonia romero Speci men proce ssed and exami linda but unsat isfac tory for evalu ation of epith elial abnor malit y becau se of insuf ficie nt cellu larit y. Not Available [facility] ([facility]) [address] [place], [address], 05/01/2022 20:08:12 04/29/20 22 05/01/2022 IGP, APTIM A HPV, RFX 16/18 ,45 clinician provided ICD10: Sonia romero N95.0 Not Available [facility] ([facility]) [address] [place], [address], 05/01/2022 20:08:12 04/29/20 22 05/01/2022 IGP, APTIM A HPV, RFX 16/18 ,45 performed by: Sonia Brady, Cytot echno logis t (ASCP ) Not Available [facility] ([facility]) [address] [place], [address], 05/01/2022 20:08:12 04/29/20 22 05/01/2022 IGP, APTIM A HPV, RFX 16/18 ,45 QC reviewed by: Sonia romo, Super visor y Cytot echno logis t (ASCP ) Not Available [facility] ([facility]) [address] [place], [address], 05/01/2022 20:08:12 04/29/20 22 05/01/2022 IGP, APTIM A HPV, RFX 16/18 ,45 . . Not Available [facility] ([facility]) [address] [place], [address], 05/01/2022 20:08:12 04/29/20 22 05/01/2022 IGP, APTIM A HPV, RFX 16/18 ,45 note: Sonia romero The Pap smear is a scree rosa isela test desig linda to aid in the detec tion of sofie ligna nt and malig nant condi tions of the uteri ne cervi x. It is not a diagn ostic proce dure and shoul d not be used as the sole means of detec ting cervi yanna cance r. Both false -posi tive and false -nega tive repor ts do occur . Not Available [facility] ([facility]) [address] [place], [address], 05/01/2022 20:08:12 04/29/20 22 05/01/2022 IGP, APTIM A HPV, RFX 16/18 ,45 test methodology: Sonia romero This liqui d based ThinP rep(R ) pap test was scree linda with the use of an image guide d vel oliveira. Not Available [facility] ([facility]) [address] [place], [address], 05/01/2022 20:08:12 04/29/20 22 05/01/2022 IGP, APTIM A HPV, RFX 16/18 ,45 HPV aptima Negati ve negati ve This nucle ic acid ampli ficat ion test detec ts fourt een high- risk HPV types (16,1 8,31, 33,35 ,39,4 5,51, 52,56 ,58,5 9,66, 68) witho ut diffe renti ation . Not Available [facility] ([facility]) [address] [place], [address], 05/01/2022 20:08:12 06/10/20 22 06/12/2022 PATHO LOGY REPOR T . Sonia t Mater ial submi tted: . endom etriu m - ENDOM ETRIA L BIOPS Y Not Available [facility] ([facility]) [address] [place], [address], 06/13/2022 07:13:03 08/08/06/12/2022 PATHO LOGY REPOR T . Commen t Diagn osis: ENDOM ETRIA L BIOPS Y: COMPL EX HYPER PLASI A WITH ATYPI A. NOTE: The case was revie wed in QC consu ltati on with agree ment. JDK 06/12 1714 Local Not Available [facility] ([facility]) [address] [place], [address], 06/13/2022 07:13:03 06/10/2006/12/2022 PATHO LOGY REPOR T . Commen t Dolly castrejon d: . Mindy nation MD, Patho logis t Not Available [facility] ([facility]) [address] [place], [address], 06/13/2022 07:13:03 06/10/2006/12/2022 PATHO LOGY REPOR T . Commen t Gross descr iptio n: . 1 Conta iner, forma pretty-f illed , label ed with patie nt ident ifica tion. ENDOM ETRIA L BIOPS Y: MULTI PLE FRAGM ENT(S ) OF SOFT MATER IAL, BLOOD , AND MUCUS MEASU RING 3.0 X 3.0 X 0.4 CM IN AGGRE GATE. FILTE RED AND SUBMI TTED IN CASSE TTE(S ) A1. /Bibi WIGGINS 06/11 1133 Local Not Available [facility] ([facility]) [address] [place], [address], 06/13/2022 07:13:03 06/10/20 22 06/12/2022 PATHO LOGJordi Romero . Commen t Patho logis t provi ded ICD-1 0: N85.0 2 Not Available [facility] ([facility]) [address] [facility], [place], [address], 06/13/2022 07:13:03 06/10/20 22 06/12/2022 PATHO LOGY LUIZA T . Commen t CPT . 60156 1 Not Available [facility] ([facility]) [address] [facility], [place], [address], 06/13/2022 07:13:03 06/10/20 22 06/12/2022 IGP, APTIM A HPV, RFX 16/18 ,45 HPV aptima Negati ve negati ve This nucle ic acid ampli ficat ion test detec ts fourt een high- risk HPV types (16,1 8,31, 33,35 ,39,4 5,51, 52,56 ,58,5 9,66, 68) witho ut diffe renti ation . Not Available [facility] ([facility]) [address] [facility], [place], [address], 06/14/2022 16:12:05 06/10/20 22 06/14/2022 IGP, APTIM A HPV, RFX 16/18 ,45 diagnosis: Commen t NEGAT GABO FOR INTRA EPITH ELIAL LESIO N OR ARI ABDALLA . FUNGA L ORGAN ISMS MORPH OLOGI FINA CONSI STENT WITH BHARTI DA SPECI ES ARE PRESE NT. Not Available [facility] ([facility]) [address] [facility], [place], [address], 06/14/2022 16:12:05 06/10/20 22 06/14/2022 IGP, APTIM A HPV, RFX 16/18 ,45 specimen adequacy: Commen t Satis facto ry for evalu ation . Endoc ervic al and/o r squam ous metap lasti c cells (endo cervi yanna compo nent) are prese nt. Not Available [facility] ([facility]) [address] [place], [address], 06/14/2022 16:12:05 06/10/20 22 06/14/2022 IGP, APTIM A HPV, RFX 16/18 ,45 clinician provided ICD10: Sonia romero Z01.4 19 N95.0 Not Available [facility] [place] [address] [facility], [place], [address], 06/14/2022 16:12:05 06/10/20 22 06/14/2022 IGP, APTIM A HPV, RFX 16/18 ,45 performed by: Sonia welsh, Cytot echno logis t (ASCP ) Not Available [facility] [place] [address] [place], [address], 06/14/2022 16:12:05 06/10/20 22 06/14/2022 IGP, APTIM A HPV, RFX 16/18 ,45 QC reviewed by: Sonia Dudley r, Super visor y Cytot echno logis t (ASCP ) Not Available [facility] [place] [address] [place], [address], 06/14/2022 16:12:05 06/10/20 22 06/14/2022 IGP, APTIM A HPV, RFX 16/18 ,45 electronical ly signed by: Sonia Green MD, Patho logis t Not Available [facility] [place] [address] [place], [address], 06/14/2022 16:12:05 06/10/20 22 06/14/2022 IGP, APTIM A HPV, RFX 16/18 ,45 . . Not Available [facility] ([facility]) [address] [facility], [place], [address], 06/14/2022 16:12:05 06/10/20 22 06/14/2022 IGP, APTIM A HPV, RFX 16/18 ,45 pathologist provided ICD10: Sonia romero R87.5 Not Available [facility] ([facility]) [address] [facility], [place], [address], 06/14/2022 16:12:05 06/10/20 22 06/14/2022 IGP, APTIM A HPV, RFX 16/18 ,45 note: Sonia romero The Pap smear is a scree rosa isela test desig linda to aid in the detec tion of sofie ligna nt and malig nant condi tions of the uteri ne cervi x. It is not a diagn ostic proce dure and shoul d not be used as the sole means of detec ting cervi yanna cance r. Both false -posi tive and false -nega tive repor ts do occur . Not Available [facility] ([facility]) [address] [facility], [place], [address], 06/14/2022 16:12:05 06/10/20 22 06/14/2022 IGP, APTIM A HPV, RFX 16/18 ,45 test methodology: Sonia romero This liqui d based ThinP rep(R ) pap test was scree linda with the use of an image guide d systcarlos m. Not Available [facility] ([facility]) [address] [facility], [place], [address], 06/14/2022 16:12:05 01/18/20 21 01/16/2021 XR, chest No observ ation record ed. [address] [place], [address], 01/18/2021 18:28:32 02/14/20 21 02/13/2021 MAMMO , scree rosa isela, bilat eral No observ ation record ed. [facility] [address] [place], [address], 02/13/2021 22:15:09 02/14/20 21 02/13/2021 MAMMO , scree rosa isela, bilat eral No observ ation record ed. [address] [place], [address], 02/15/2021 17:25:49 03/22/20 21 03/22/2021 XR, chest No observ ation record ed. [address] [place], [address], 03/22/2021 18:26:28 04/26/20 21 04/26/2021 CT, head, w/o contr ast No observ ation record ed. [facility] [address] [place], [address], 04/26/2021 17:36:04 04/26/20 21 04/26/2021 CT, cervi yanna spine , w/o contr ast No observ ation record ed. [address] [place], [address], 05/03/2021 14:41:55 04/26/20 21 04/26/2021 CT, maxil lofac ial, w/o contr ast No observ ation record ed. [address] [place], [address], 05/03/2021 14:42:11 05/09/20 22 04/17/2022 US, pelvi s, compl ete No observ ation record ed. [place] [address], [place], [address], 05/09/2022 12:33:23 05/22/20 22 05/21/2022 CT, abdom en + pelvi s, w/ contr ast No observ ation record ed. [place] [id number] [facility] [address], [place], [address], 07/03/2022 14:23:12 06/14/20 22 06/14/2022 MAMMO , scree rosa isela, digit al, bilat eral No observ ation record ed. [facility] [address] [facility] [address], [place], [address], 07/03/2022 14:22:15 06/28/20 22 06/14/2022 MAMMO , scree rosa isela, digit al, bilat eral No observ ation record ed. [facility] ([facility]) [address] [place], [address], 07/01/2022 15:52:54 09/17/20 22 09/17/2022 US, rosaura t, unila teral No observ ation record ed. [facility] (Mamm[facility]) [address], [place], [address], 09/20/2022 15:21:29 09/17/20 22 09/17/2022 MAMMO , diagn ostic , unila teral No observ ation record ed. [facility] ([facility]amm[facility]) [address], [place], [address], 09/20/2022 15:21:50 10/03/20 22 09/17/2022 rosaura SANTIAGO, unila teral No observ ation record ed. [facility] ([facility]amm[facility]) [address], [place], [address], 10/04/2022 15:43:33 Result Notes None recorded. Problems Name Problem SNOMED Code Status Onset Date Resolution Date Notes Provider Name and Address Organization Details Recorded Time Anxiety 27895304 Active 2017 OSMIN LONGORIA MD Attn: Accounting ,[address] [facility], [place], [address] , [place] 15:15:42 Depressi ve disorder 77049415 Active 2017 OSMIN LONGORIA MD Attn: Accounting ,[address] [facility], [place], [address] , [place] - [facility] 2 15:15:42 Asthma 182147083 Active 2017 OSMIN LONGORIA MD Attn: Accounting ,[address] [facility], [place], [address] , [place] - [facility] 2 15:15:42 Chronic obstruct gabo pulmonar y disease 56042825 Active 2017 Not Available [facility] 1 01:11:24 Diabetes mellitus 77703499 Active 2017 Not Available [facility] 1 01:11:23 Divertic ulitis 674136447 Active 2017 OSMIN LONGORIA MD Attn: Accounting ,[address] [facility], [place], [address] , [place] - [facility] 2 15:15:42 Congesti ve heart failure 47131403 Active 2017 Not Available [facility] 1 01:11:24 Fibroade noma of breast 097591853 Active 2017 OSMIN LONGORIA MD Attn: Accounting ,[address] [facility], [place], [address] , [place] [facility] 2 15:15:42 Morbid obesity 859042848 Completed 201704/02/2018 Jannet Marrufo PA-C Attn: Accounting ,[address] [facility], [place], [address] , [place] [facility] 8 11:36:40 Body mass index 40+ - severely obese 591362629 Active 2017 OSMIN LONGORIA MD Attn: Accounting ,[address] [facility], [place], [address] , [place] [facility] 2 15:15:42 Uncontro lled type 2 diabetes mellitus 195443858 Active 2017 OSMIN LONGORIA MD Attn: Accounting ,[address] [place], [address] , [place] [facility] 2 15:15:42 Obstruct gabo sleep apnea syndrome 11080022 Active 2017 OSMIN LONGORIA MD Attn: Accounting ,[address] [place], [address] , [place] [facility] 2 15:15:42 Serum creatini ne above referenc e range 062503095 Active 2017 OSMIN LONGORIA MD Attn: Accounting ,[address] [place], [address] , [place] [facility] 2 15:15:42 Steatoti c liver disease 213039552 Active 2017 OSMIN LONGORIA MD Attn: Accounting ,[address] [place], [address] , [place] [facility] 2 15:15:42 Mixed urinary incontin ence 400945167 Active 2017 OSMIN LONGORIA MD Attn: Accounting ,[address] [place], [address] , [place] [facility] 2 15:15:42 Gastroes ophageal reflux disease 545674678 Active 2017 OSMIN LONGORIA MD Attn: Accounting ,[address] [place], [address] , [place] [facility] 2 15:15:42 Essentia l hyperten valentin 74961844 Active 2018 OSMIN LONGORIA MD Attn: Accounting ,[address] [place], [address] , [place] [facility] 2 15:15:42 Muscle weakness 75500008 Active 2018 OSMIN LONGORIA MD Attn: Accounting ,[address] [place], [address] , [place] [facility] 2 15:15:42 Low back pain 667044831 Active 2018 OSMIN LONGORIA MD Attn: Accounting ,[address] [facility], [place], [address] , [place] - [facility] 2 15:15:42 Vaginiti s 77778548 Active 2018 POst antibiot ic OSMIN LONGORIA MD Attn: Accounting ,[address] [facility], [place], [address] , [place] [facility] 2 15:15:42 Medicati on monitori ng Active 2018 OSMIN LONGORIA MD Attn: Accounting ,[address] [facility], [place], [address] , [place] [facility] 2 15:15:42 Impacted cerumen of bilatera l ears 76191162701 67727 Active 2018 R>L OSMIN LONGORIA MD Attn: Accounting ,[address] [place], [address] , [facility] - [facility] 2 15:15:42 Restless legs syndrome 68054666 Active 2018 OSMIN LONGORIA MD Attn: Accounting ,[address] [facility], [place], [address] , [facility] - [facility] 2 15:15:42 Cellulit is and abscess of breast 675350329 Active 2018 OSMIN LONGORIA MD Attn: Accounting ,[address] [place], [address] , [place] - [facility] 2 15:15:42 Problem Notes None recorded. Procedures Surgical History Date Name Laterality Status Provider Name and Address Organization Details Recorded Time 06/10/20 22 Endometrial Biopsy completed Petr Mendoza MD Attn: Accounting,[address] [facility], [place], [address], [place] [facility] 06/17/2022 14:05:05 04/29/20 22 Endometrial Biopsy completed OSMIN LONGORIA MD Attn: Accounting,[address] [place], [address], [facility] - [facility] 04/29/2022 16:02:39 11/02/20 19 I&D completed Denny Rowell [place] 11/02/2019 15:30:56 01/29/20 18 Date of Last Pap Smear completed Heavenly Herrera [place] 04/02/2018 11:26:18 01/29/20 18 Date of Last Mammogram completed Heavenly Herrera [place] 04/02/2018 11:26:36 11/03/19 17 Most Recent Mammogram completed Eleanor Tipton [place] 11/02/2019 15:13:14 11/03/18 92 Cholecystectomy completed Heavenly Herrera MA [place] 04/02/2018 11:27:46 Imaging Results None recorded. Procedure Notes None recorded. Medical Equipment None Reported. Allergies Allergen ID Allergen Name Allergen Category Reaction Reaction Severity Criticality Documentation Date Start Date Code Code System Note Provider Name and Address Organization Details Recorded Time 707226 penicilla mine medicatio n respirato ry distress severe Not available 01/08/2018 7975 RxNorm Rash Rajani Mejia MA null, [place] - [place] 2 15:27:03 409825 cephalexi n medicatio n respirato ry distress severe Not available 01/08/2018 2231 RxNorm Heidy Robin MA null, [place] - [place] 8 16:18:28 412885 azithromy abeba medicatio n respirato ry distress severe Not available 01/08/2018 51234 RxNorm Rash JAIRO Sen, [facility] 2 15:25:22 912218 tetracycl ine medicatio n respirato ry distress severe Not available 01/08/2018 09779 RxNorm Steve Mejia MA null, [place] - [place] 2 15:27:30 307857 Percodan medicatio n Not available Not available Not available 01/08/2018 31160 RxNorm JAIRO Bryant, [place] - [place] 8 16:19:34 437830 oxycodone medicatio n vomiting severe Not available 01/08/2018 7804 RxNorm JAIRO Bryant, [place] 8 16:19:55 075220 Depakote medicatio n rash severe Not available 01/08/2018 15483 9 RxNorm Heidyaisha Robin [place], [place] [facility] 8 16:20:34 181869 Naprosyn medicatio n rash severe Not available 01/08/2018 2 RxNorm Heidy RobinJAIRO [place], [place] [facility] 8 16:20:47 326726 Keflex medicatio n respirato ry distress severe Not available 04/02/201888244 7 RxNorm Heavenly HerreraJAIRO null, [place] - [facility] 8 11:23:06 Medications Name Sig Start Date Stop Date Status Note LastModified by Organization Details LastModified Time clever choice comfort ez insulin sy ringe/u-100 /1ml/31gx5/ 16 31g x 5/16 1 ml misc active Not Available Not Available Not Available [employer] choice comfort ez insulin pe n needles [id number] 31g x 8 mm misc active Not Available Not Available Not Available BD Ultra Fine Pen Fults Mini 5 mm X 31 gauge 11/30 completed Not Available Not Available Not Available Prescriptio n - Prior Authorizati on Request 02/18 completed Not Available Not Available Not Available multivitami n tablet Take 1 tablet every day by oral route. 04/02 completed Not Available Not Available Not Available furosemide 40 mg tablet active Not Available Not Available Not Available furosemide 10 mg/mL injection solution 04/29 completed Not Available Not Available Not Available fluconazole 100 mg tablet 06/10 completed Not Available Not Available Not Available metformin 500 mg tablet active Not Available Not Available Not Available atorvastati n 80 mg tablet active Not Available Not Available Not Available carvedilol 25 mg tablet Take 1 tablet every day by oral route for 30 days. active Not Available Not Available No t Available nystatin 100,000 unit/mL oral suspension 11/13 completed Not Available Not Available Not Available prednisone 10 mg tablet active Not Available Not Available Not Available gabapentin 600 mg tablet Take 1 tablet every day by oral route in the evening. 11/13 completed Not Available Not Available Not Available carvedilol 12.5 mg tablet Take 1 tablet twice a day by oral route. active Not Available Not Available No t Available lamotrigine 200 mg tablet active Not Available Not Available Not Available ipratropium 0.5 mg-albutero l 3 mg (2.5 mg base)/3 mL nebulizatio n soln active Not Available Not Available Not Available torsemide 20 mg tablet TAKE THREE TABLETS BY MOUTH ONCE DAILY. active Not Available Not Available No t Available clindamycin HCl 300 mg capsule 11/13 completed Not Available Not Available Not Available albuterol sulfate 2.5 mg/3 mL (0.083 %) solution for nebulizatio n Inhale 3 mL 3 times a day by nebulizat ion route. 11/13 completed Not Available Not Available Not Available trazodone 50 mg tablet active Not Available Not Available Not Available Humulin R U-500 (Concentrat ed) Insulin 500 unit/mL subcutaneou s soln active Not Available Not Available Not Available azithromyci n 250 mg tablet 06/10 completed Not Available Not Available Not Available ibuprofen 800 mg tablet 11/30 completed Not Available Not Available Not Available Glucagon Emergency Kit 1 mg solution for injection Take 1 mg every day by injection route as needed. active Not Available Not Available No t Available fluconazole 150 mg tablet Take 1 tablet every 72 hours by oral route. 06/10 completed Not Available Not Available Not Available hydrocodone 5 mg-acetamin ophen 325 mg tablet 08/24 completed Not Available Not Available Not Available Nystop 100,000 unit/gram topical powder active Not Available Not Available Not Available ondansetron HCl 8 mg tablet 11/13 completed Not Available Not Available Not Available meloxicam 15 mg tablet 04/02 completed Not Available Not Available Not Available lisinopril 20 mg tablet 04/02 completed Not Available Not Available Not Available prednisone 20 mg tablet active Not Available Not Available Not Available metolazone 5 mg tablet TAKE ONE TABLET DAILY active Not Available Not Available No t Available Lantus U-100 Insulin 100 unit/mL subcutaneou s solution active Not Available Not Available N ot Available bacitracin 500 unit/gram topical ointment 04/02 completed Not Available Not Available Not Available potassium chloride ER 10 mEq tablet,exte nded release active Not Available Not Available Not Available metronidazo le 500 mg tablet Take 1 tablet twice a day by oral route. 11/13 completed Not Available Not Available Not Available acetaminoph en 300 mg-codeine 30 mg tablet active Not Available Not Available Not Available ciprofloxac in 250 mg tablet 11/13 completed Not Available Not Available Not Available ciprofloxac in 500 mg tablet Take 1 tablet every 12 hours by oral route for 14 days. 04/29 completed Not Available Not Available Not Available tramadol 50 mg tablet TAKE ONE TABLET BY MOUTH THREE TIMES DAILY NEEDED FOR PAIN active Not Available Not Available No t Available spironolact one 25 mg tablet TAKE ONE TABLET DAILY active Not Available Not Available No t Available isosorbide mononitrate ER 60 mg tablet,exte nded release 24 hr 11/13 completed Not Available Not Available Not Available famotidine 20 mg tablet TAKE 1 TABLET BY MOUTH EVERY 12 HOURS FOR 10 DAYS active Not Available Not Available No t Available lorazepam 0.5 mg tablet active Not Available Not Available Not Available meclizine 25 mg tablet TAKE 1 TABLET BY MOUTH EVERY 8 HOURS NEEDED active Not Available Not Available No t Available amlodipine 10 mg tablet active Not Available Not Available Not Available benzonatate 100 mg capsule 11/30 completed Not Available Not Available Not Available metformin 1,000 mg tablet Take 1 tablet twice a day by oral route for 30 days. 11/13 completed Not Available Not Available Not Available ranitidine 150 mg tablet Take 1 tablet twice a day by oral route before meals for 30 days. 02/18 completed Not Available Not Available Not Available lisinopril 10 mg tablet 11/13 completed Not Available Not Available Not Available nitroglycer in 0.4 mg sublingual tablet 11/13 completed Not Available Not Available Not Available gabapentin 300 mg capsule TAKE 1 CAPSULE DAILY IN THE EVENING. active Not Available Not Available No t Available omeprazole 20 mg capsule,del ayed release Take 1 capsule every day by oral route before meals. active Not Available Not Available No t Available bumetanide 1 mg tablet 11/13 completed Not Available Not Available Not Available olanzapine 15 mg tablet Take 1 tablet every day by oral route. 11/13 completed Not Available Not Available Not Available lisinopril 5 mg tablet active Not Available Not Available Not Available lorazepam 1 mg tablet active Not Available Not Available No t Available insulin lispro (U-100) 100 unit/mL subcutaneou s solution active Not Available Not Available N ot Available diazepam 10 mg tablet Take 1 tablet every day by oral route at bedtime for 30 days. 08/24 completed Not Available Not Available Not Available levofloxaci n 500 mg tablet 11/13 completed Not Available Not Available Not Available levofloxaci n 750 mg tablet active Not Available Not Available Not Available lisinopril 40 mg tablet active Not Available Not Available Not Available ondansetron 4 mg disintegrat ing tablet TAKE 1 TABLET BY MOUTH EVERY 8 HOURS active Not Available Not Available No t Available cefdinir 300 mg capsule TAKE 1 CAPSULE BY MOUTH EVERY 12 HOURS active Not Available Not Available No t Available fluticasone propionate 50 mcg/actuati on nasal spray,suspe nsion 11/30 completed Not Available Not Available Not Available metformin ER 500 mg tablet,exte nded release 24 hr TAKE 1 TABLET TWICE DAILY BEFORE MEALS active Not Available Not Available No t Available lisinopril 2.5 mg tablet TAKE 1 TABLET BY MOUTH EVERY DAY active Not Available Not Available No t Available olanzapine 20 mg tablet active Not Available Not Available Not Available lamotrigine 100 mg tablet active Not Available Not Available Not Available spironolact one 50 mg tablet TAKE 1 TABLET DAILY EVERY MORNING active Not Available Not Available No t Available neomycin-po lymyxin-hyd rocort 3.5 mg-10,000 unit/mL-1 % ear drops,susp 06/10 completed Not Available Not Available Not Available escitalopra m 10 mg tablet Take 1 tablet every day by oral route for 30 days. active Not Available Not Available No t Available Ciprodex 0.3 %-0.1 % ear drops,suspe nsion 11/13 completed Not Available Not Available Not Available rosuvastati n 40 mg tablet active Not Available Not Available Not Available BD Ultra-Fine Short Pen Needle 31 gauge x 5/16 USE 4 TIMES DAILY DIRECTED active Not Available Not Available No t Available Januvia 100 mg tablet active Not Available Not Available No t Available calcium 600 mg (as carbonate)- vitamin D3 10 mcg (400 unit) tablet Take 1 tablet twice a day by oral route. 04/02 completed Not Available Not Available Not Available Symbicort 160 mcg-4.5 mcg/actuati on HFA aerosol inhaler INHALE 2 PUFFS TWICE DAILY. RINSE MOUTH AFTER USE. active Not Available Not Available No t Available Symbicort 80 mcg-4.5 mcg/actuati on HFA aerosol inhaler active Not Available Not Available Not Available Lantus Solostar U-100 Insulin 100 unit/mL (3 mL) subcutaneou s pen INJECT 12 UNITS UNDER THE SKIN EVERY DAY active Not Available Not Available No t Available GaviLyte-G 236 gram-22.74 gram-6.74 gram-5.86 gram oral solution active Not Available Not Available Not Available Korlym 300 mg tablet active Not Available Not Available No t Available Combivent Respimat 20 mcg-100 mcg/actuati on solution for inhalation INHALE 1 PUFF FOUR TIMES A DAY NEEDED active Not Available Not Available No t Available TRUEplus Insulin 0.3 mL 31 gauge x 5/16 syringe 11/30 completed Not Available Not Available Not Available Jardiance 10 mg tablet active Not Available Not Available Not Available True Metrix Glucose Test Strip active Not Available Not Available N ot Available Incruse Ellipta 62.5 mcg/actuati on powder for inhalation active Not Available Not Available N ot Available Humalog KwikPen U-200 Insulin 200 unit/mL (3 mL) subcutaneou s 50 units TID 02/18 completed Not Available Not Available Not Available Spiriva Respimat 1.25 mcg/actuati on solution for inhalation active Not Available Not Available N ot Available Humulin R U-500 (Conc) Insulin Kwikpen 500 unit/mL (3 mL) subcutaneou s INJECT 160 UNITS UNDER THE SKIN THREE TIMES DAILY BEFORE MEALS active Not Available Not Available No t Available TRUEplus Pen Needle 31 gauge x 3/16 active Not Available Not Available Not Available BD Insulin Syringe U-500 1/2 mL 31 gauge x 15/64 USE FOUR TIMES DAILY WITH HUMULIN U-500 INSULIN active Not Available Not Available No t Available Fluzone Quad 6776-7230 60 mcg (15 mcg x 4)/0.5 mL IM suspension 04/02 completed Not Available Not Available Not Available Adult One Daily Multivitami n 0.4 mg tablet 02/18 completed Not Available Not Available Not Available OneTouch Ultra Blue Test Strip active Not Available Not Available N ot Available Fluzone Quad 60 mcg (15 mcg x 4)/0.5 mL IM suspension 11/30 completed Not Available Not Available Not Available OneTouch Ultra2 Meter active Not Available Not Available Not Available OneTouch Delica Plus Lancet 33 gauge active Not Available Not Available Not Available insulin glargine-yf gn (U-100) 100 unit/mL (3 mL) subcutaneou s pen active Not Available Not Available Not Available insulin glargine-yf gn (U-100) 100 unit/mL subcutaneou s solution active Not Available Not Available N ot Available Vitals Date Recorded Body height Body mass index (BMI) Body weight Provider Name and Address Organization Details Last Updated DateTime 11/13/2020 162.56 cm 56 kg/m2 967015.11 g Eleanor Tipton MA [facility] 11/13/2020 15:39:35 Date Recorded Body weight Body height Body mass index (BMI) Systolic And Diastolic Provider Name and Address Organization Details Last Updated DateTime 04/29/2022 894466.35 g 162.56 cm 46.2 kg/m2 128/70 mm[Hg] Eleanor Tipton MA [facility] 04/29/2022 10:37:49 Date Recorded Body height Body mass index (BMI) Body weight Systolic And Diastolic Provider Name and Address Organization Details Last Updated DateTime 06/10/2022 162.56 cm 48.2 kg/m2 419557.74 g 124/74 mm[Hg] Rajani Mejia MA [facility] 06/10/2022 15:24:04 Date Recorded Body height Body mass index (BMI) Body weight Systolic And Diastolic Provider Name and Address Organization Details Last Updated DateTime 07/05/2022 162.56 cm 48.5 kg/m2 510365.92 g 130/78 mm[Hg] Rajani Mejia MA [facility] 07/05/2022 12:06:12 Social History Question Answer Notes LastModified by Organizat ion Details LastModified Time Tobacco Smoking Status Never Smoker Heidy Robin MA [facility], [facility] 01/08/2018 16:29:00 Do You Have An Advance Directive? No Information n ot available 01/08/2018 Is Blood Transfusion Acceptable In An Emergency? Yes Information not available 01/08/2018 What Is Your Level Of Caffeine Consumption? Heavy Information not available 01/08/2018 How Much Tobacco Do You Chew? None Information not available 01/08/2018 In The 14 Days Before Symptom Onset, Have You Had Close Contact With A Laboratory-confirm ed COVID-19 While That Case Was Ill? No Information n ot available 06/10/2022 In The 14 Days Before Symptom Onset, Have You Had Close Contact With A Person Who Is Under Investigation For COVID-19 While That Person Was Ill? No Information not available 06/10/2022 Have You Been To An Area Known To Be High Risk For COVID-19? No Information not available 06/10/2022 What Type Of Diet Are You Following? REGULAR Information n ot available 01/08/2018 Which Illicit Or Recreational Drugs Have You Used? Marijuana And Cocaine In Past Not Still Information not available 01/08/2018 Education 12 Information no t available 01/08/2018 What Is The Highest Grade Or Level Of School You Have Completed Or The Highest Degree You Have Received? [id number] Information not available 06/10/2022 Have There Been Any Changes To Your Family Or Social Situation? No Information no t available 06/10/2022 Are There Any Guns Present In Your Home? No Information not available 04/02/2018 Hard Of Hearing Or Deaf In One Or Both Ears? Yes Information not available 04/02/2018 Legally Blind In One Or Both Eyes? No Information no t available 04/02/2018 Live Alone Or With Others? With Others Information not available 01/08/2018 Marital Status Single Informatio n not available 04/02/2018 What Was The Date Of Your Most Recent Tobacco Screening? 07/05/2022 Information not available 07/05/2022 How Many Children Do You Have? 1 Information not available 01/08/2018 Performs Monthly Self-breast Exam? No Information no t available 01/08/2018 Do You Have Any Pets? No Information not available 06/10/2022 Do You Use Protection During Sex? Usually Information not available 01/08/2018 What Is Your Relationship Status? Single Information not available 01/08/2018 Do You Use Your Seat Belt Or Car Seat Routinely? Yes Information not available 04/29/2022 Seat Belts Used Routinely Yes Information not available 01/08/2018 Are You Sexually Active? No Information not available 01/08/2018 Smoke Alarm In Home Yes Information not available 04/02/2018 Do You Have Smoke And Carbon Monoxide Detectors In Your Home? Yes Information not available 04/29/2022 Are You Passively Exposed To Smoke? No Information no t available 04/29/2022 How Much Tobacco Do You Smoke? No Information not available 11/13/2020 General Stress Level Low Information not available 01/08/2018 Do You Use Sunscreen Routinely? No Information not available 01/08/2018 Has Tobacco Cessation Counseling Been Provided? No Information not available 04/29/2022 Sex: Female Functional Status Question Answer Note LastModified by Organizat ion Details LastModified Time Do you use any illicit or recreational drugs? No Information not available 04/29/2022 Do you or have you ever used any other forms of tobacco or nicotine? No Information not available 04/29/2022 What is your level of alcohol consumption? None Information not available 01/08/2018 Do you or have you ever used smokeless tobacco? Never used smokeless tobacco Information not available 11/13/2020 Are you currently employed? No Information not available 01/08/2018 What is your occupation? disabled Information not available 01/08/2018 Do you or have you ever used e-cigarettes or vape? Never used electronic cigarettes Information not available 11/13/2020 What is your exercise level? None Information not available 01/08/2018 Mental Status Question Answer Note LastModified by Organization D etails LastModified Time Do you feel stressed (tense, restless, nervous, or anxious, or unable to sleep at night)? [id number] Information not available 06/10/2022 Family History Relationship Description Onset Age of this Age Resolved Age Notes LastModified by Organization Details LastModified Time Mother Malignant neoplasm of breast Not available 2017 16:27:05 Mother Carcinoma in situ of uterus Not available 2017 16:27:56 Mother Diabetes mellitus Not available 2017 16:28:10 Father Depressive disorder Not available 2017 16:28:22 Medical History Condition Response Other N High Blood Pressure Y Breast Cancer N Thyroid Problems N Kidney or Bladder Problems N GI Problems Y Depression Y Blood Clots N Lung Disease Y Acne N Breast Problem Y Eating Disorder N Anemia N Anesthesia Complications N Headaches/Migraines N Anxiety Disorder Y Diabetes Y Ovarian Cancer N Muscle, Joint, or Bone Problems N Blood Transfusions N Seizures/Epilepsy N Polyps Y Infertility N Acid Reflux (GERD) N Cancer N Abuse/Domestic Violence N Asthma Y Endometriosis N High Cholesterol N Hepatitis N Liver Disease N Heart Disease Y Pre-Eclampsia N Osteoporosis N Gynecological History Statement/Question Response Abnormal Pap N Date of Last Mammogram 01/28/2018 On BCP's at Conception? N STIs/STDs Y HPV Vaccine N Most Recent Mammogram 11/03/2016 Age at Menarche 11 Current Control Method None Age at First Child 23 If Post Menopausal, Age at Menopause 52 Sexually Active? N Menses Monthly N Date of Last Pap Smear 01/28/2018 Sexual Problems? Y LMP Desired Control Method Abstinence Obstetrics History GPAL:G 1 P 1 0 4 1 Type Value Multiple Births 0 Full Term 1 Induced 3 Spontaneous 1 Premature 0 Living 1 Ectopics 0 Total 1 Immunizations Vaccine Type Date Status Note Provider Nam e and Address Organization Details Recorded Time COVID-19, mRNA, LNP-S, PF, 30 mcg/0.3 mL dose 1 completed OSMIN LONGORIA MD Attn: [address] [place], [address], [place] [facility] 04/29/2022 15:15:43 COVID-19, mRNA, LNP-S, PF, 30 mcg/0.3 mL dose 1 completed OSMIN LONGORIA MD Attn: [address] [place], [address], [place] [facility] 04/29/2022 15:15:43 Tdap 8 completed Not Available [facility] 11/20/2019 02:49:49 pneumococcal polysaccharide PPV23 11/27/201 8 completed Not Available [facility] 11/20/2019 02:36:31 Past Encounters Encounter ID Performer Location Encounter Start Date Encounter Closed Date Diagnosis/Indication Diagnosis SNOMED-CT Code Diagnosis ICD10 Code Diagnosis IMO Codes Diagnosis Note [id number] MD Bee Portillo (SHINGLE CARRIER) [address] [place] [address] [phone] 0 01/08/2018 15:53:54 01/14/2018 09:03:59 Screening mammography 20295077 Z12.31 Gynecologi c examination 43010676 Z01.419 Z11.51 Exposure t o sexually transmissible disorder 039312481 Z20.2 Mass of right breast 482 9631742 5214333 N63.10 Screening for osteoporosis 852549905 Z13.820 Postmenopausal state 764 72745 Z78.0 [id number] MD Bee Amezcua (Adult Med) [address] [place] [address] [id number] 0 04/02/2018 11:03:32 04/02/2018 12:38:10 Adult health examination 776535455 Z00.01 Active or passive immunization 641003054 Z23 Body mass index 40+ - severely obese 618499257 Z68.43 Advised 30 minutes of exercise 5 days/week Advised to not drink her calories Advised 3 balanced meals/day with plenty of fruits and vegetables Uncontroll ed type 2 diabetes mellitus 145486453 E11.65 a1c: 7.4 today in office - advised to c/w current medicaiton regimen because I am happy overall with this numberRefe r to endocrinol ogy at this time Screening for disorder 045225591 Z13.9 Congestive heart failure 55413856 I50.9 Acute on chronic. Up 14 pounds this month with increased dyspnea and LE edema. Refer to cardiology . WIll contact cardiology today to schedule appointmen t Chronic ob structive pulmonary disease 51529348 J44.9 Refer to pulmonolog y. Dependence on supplemental oxygen 0236141219 07 Z99.81 2L [id number] MD Bee Amezcua (Adult Med) [address] [place] [address] [phone] 0 04/13/2018 10:51:34 04/13/2018 11:46:29 Body mass index 40+ - severely obese 626855509 Z68.43 Advised 30 minutes of exercise 5 days/week Advised to not drink her calories Advised 3 balanced meals/day with plenty of fruits and vegetables Congestive heart failure 73919604 I50.9 Followed by cardiology .On sodium-res tricted diet. Down 1 pound since last appointmen t, breathing improved. Followed by cardiology Uncontroll ed type 2 diabetes mellitus 514835930 E11.65 a1c: 7.4 today in office - advised to c/w current medicaton regimen because I am happy overall with this number Has endocrinol ogy appointmen t 05/05/18. Chronic ob structive pulmonary disease 64792506 J44.9 Refer to pulmonolog y. Serum crea tinine above reference range 142000700 R79.89 Refer to nephrology . Alanine aminotransferase above reference range 101934546 R74.0 Repeat labs today.Live r US to r/o cirrhosis. [id number] MD Bee Amezcua (Adult Med) [address] [place] [address] [phone] 0 05/13/2018 14:21:47 05/14/2018 10:28:38 Mixed urinary incontinence 384178143 N39.46 Depends Women's XXL - getting 200/month will prescribe for one year Uncontroll ed type 2 diabetes mellitus 581971034 E11.65 a1c: 7.4 today in office - advised to c/w current medicaton regimen because I am happy overall with this number Has endocrinol ogy appointmen t 05/05/18. [id number] MD Bee Pate (Adult Med) [address] [place] [address] [phone] 0 07/14/2018 11:28:05 07/14/2018 13:16:30 Gastroesophageal reflux disease 706722022 K21.9 Uncontroll ed type 2 diabetes mellitus 574333978 E11.65 Chronic ob structive pulmonary disease 25935602 J44.9 [id number] MD Bee Amezcua (Adult Med) [address] [place] [address] [phone] 0 09/29/2018 09:23:14 09/29/2018 14:30:11 Vomiting 401952802 R11.10 Patient here to f/u after ER visit for vomiting liquids and sometimes food that she just tried to swallow x at least 6 months. Patient feels like it gets stuck in her throat and it has progressiv fannie worsened in the last few months. Worse with fluids than solids. She vomits randomly 4-6 times per day. Denies acid reflux, pain on swallowing , recent sickness. Serum crea tinine above reference range 655708496 R79.89 WIll refer to new nephrology at this time since her old nephrologi st no longer accepts her insurnace. Advised patient that she does need to be following with a specialist d/t her kidney numbers Active or passive immunization 718067963 Z23 Uncontroll ed type 2 diabetes mellitus 159984828 E11.65 Being followed by endo (last appointmen t was 3 weeks ago); per patient last A1C was 6.7last documented a1c 6.3 in 05/2018 from endo Chronic ob structive pulmonary disease 46120730 J44.9 followed by pulmonolog y. Patient has no complaints today. [id number] MD Bee Rain (Adult Med) [address] [place] [address] [phone] 0 11/30/2018 10:19:37 12/01/2018 11:38:55 Chronic obstructive pulmonary disease 66127738 J44.9 decrease fluid intake to 64 oz a day. Patient on 2L 02. Body mass index 40+ - severely obese 020500410 Z68.41 discussed good diet and exercise. make good food/snack choices. decrease sugared beverage intake. Hospital i npatient stay within past 30 days 7969715262 106 Z76.89 Patient instructed to decrease fluid intake from 1.5 gallon a aday to 64 oz aday. instructed to stop taking OTC potassium. F/U with pulmonary and cardiologi st. [id number] MD Bee Asher (Adult Med) [address] [place] [address] [phone] 0 02/18/2019 09:59:09 02/18/2019 11:39:58 Chronic obstructive pulmonary disease 86776395 J44.9 Obstructiv e sleep apnea syndrome 58130888 G47.33 Diabetes mellitus 291949 09 E11.9 Congestive heart failure 84342334 I50.9 Pt to call cardiologi st re continuati on of furosemide Steatotic liver disease 742772937 K76.0 Muscle weakness 63635917 M62.81 [id number] MD Bee Asher (Adult Med) [address] [place] [address] [phone] 0 04/20/2019 15:07:00 04/20/2019 17:08:25 Essential hypertension 05765802 I10 Chronic ob structive pulmonary disease 76682300 J44.9 Uncontroll ed type 2 diabetes mellitus 994562376 E11.65 Basaglar restarted. at 5U /d. Increase to 10U /d if nochange in two weeks Obstructiv e sleep apnea syndrome 89759923 G47.33 Gastroesop hageal reflux disease 571128312 K21.9 Steatotic liver disease 492180137 K76.0 Low back pain 871914158 M54.5 Vaginitis 36972359 N76.0 [id number] Kaila Oakes MD [facility] (Adult Med) [address] [place] [address] [phone] 0 05/20/2019 15:11:43 05/21/2019 09:46:56 Essential hypertension 12931733 I10 Chronic ob structive pulmonary disease 99622026 J44.9 Gastroesop hageal reflux disease 358788143 K21.9 Mixed urin miguel incontinence 408071691 N39.46 Uncontroll ed type 2 diabetes mellitus 639711074 E11.65 Basaglar restarted. at 5U /d. Increase to 10U /d if nochange in two weeks Low back pain 498413636 M54.5 Medication monitoring 39 8420960 Z51.81 [id number] Kaila Oakes MD [facility] (Adult Med) [address] [place] [address] [phone] 0 06/22/2019 14:40:37 06/23/2019 10:16:19 Mixed urinary incontinence 451059602 N39.46 Chronic ob structive pulmonary disease 87322866 J44.9 Impacted c erumen of bilateral ears 8284227087 216787 H61.23 Ears lavaged clear [id number] MD Bee Asher (Adult Med) [address] [place] [address] [phone] 0 08/24/2019 15:09:24 08/25/2019 10:27:08 Restless legs syndrome 25669330 G25.81 [id number] MD Bee Portillo ([employer]ER) [address] [place] [address] [phone] 0 11/02/2019 13:58:40 11/02/2019 15:41:07 Uncontrolled type 2 diabetes mellitus 277850630 E11.65 Essential hypertension 13304478 I10 Congestive heart failure 06089230 I50.9 Chronic ob structive pulmonary disease 47396057 J44.9 Body mass index 40+ - severely obese 421701558 Z68.43 Cellulitis and abscess of breast 232876279 N61.1 [id number] MD Bee Portillo ([employer]INGLE [employer]ER) [address] [place] [address] 05952-723 0 11/13/2020 13:09:45 11/15/2020 13:17:23 Screening mammography 99235588 Z12.31 Vaginitis 21583767 N76.0 Candidiasis of vagina [address] reptococcus carrier 7910007445 103 Z22.330 Uncontroll ed type 2 diabetes mellitus 345279597 E11.65 Congestive heart failure 82715158 I50.9 Chronic ob structive pulmonary disease 50387049 J44.9 Morbid obesity 335837502 Z68.43 Diabetes mellitus 417273 09 E11.9 [id number] MD Bee Asher (Adult Med) [address] [place] [address] 74530-984 0 01/29/2021 09:25:22 01/29/2021 10:10:28 [id number] MD Bee MUJICA (SHINGLE CARRIER) [address] [place] [address] [phone] 0 04/29/2022 10:17:56 04/30/2022 13:04:58 Postmenopausal bleeding 61005902 N95.0 One month history of intermitte nt vaginal bleeding. Menopause at age 52. Family history of uterine cancer in mother. Mammo 2020 Birads 1, colonoscop y screen normal 10 years ago.- US report brought by pt does not comment on endometria l stripe. Will reach out to radiology to reread- EMB attempted x 2. Technicall y difficult exam due to habitus and curvature of uterus- PAP obtained and nuswab- Noted abnormal discharge, swollen labia, and clinically positive yeast infection. See plan below for treatment- will get CBC, BMP to review kidney function and any signs of anemia- will order CT a/p w/ con given unsuccessf ul EMB and US report given to me today- consider having patient meet with Dr Mendoza in [place] to consider need for EMB procedure under anesthesia . Screening mammography 24 180279 Z12.31 Due for annual screening exam Candidiasis of vagina 72 702535 B37.3 Clinical evidence of yeast in vaginal canal. Pt reports uncontroll ed blood sugars in 300s despite insulin therapy. Noted on med list she is on jardiance- I would recommend for her to stop jardiance, given yeast infection and severity of inflammati on- consider GLP1-ra for weight loss and continued control, low glycemic diet- will start fluconazol e, 150mg to be repeated in 3 days [id number] MD Rigo Wynn 14 OB [address] [facility] [address] [place] [address] [phone] 1 06/10/2022 14:57:25 06/18/2022 22:44:08 Gynecologic examination 86501764 Z01.419 Postmenopa usal bleeding 35074353 N95.0 Screening mammography 24 520646 Z12.31 [id number] MD Rigo Wynn 14 OB [address] [facility] [address] [place] [address] [phone] 1 07/05/2022 11:52:20 07/09/2022 09:49:54 Complex atypical endometrial hyperplasia 236198633 N85.02 Health Concerns Section Related Observation LastModified by Organization Detai ls LastModified Time None Recorded Concern Status LastModified by Organization Details LastModified Time None Recorded Advance Directives Directive N: Payers Insurance Date Sequence Insurance Name Policy Number Policy Silva Covered Member ID Silva Member ID Guarantor Name 12/08/2023 1 [facility] (MEDICARE REPLACEMENT/A DVANTAGE - PPO) [id number] Vida Castañeda [id number] Vida Castañeda 04/29/2022 2 [facility] - DOS PRIOR TO 2021 (MEDICAID REPLACEMENT - HMO) Vida Castañeda [id number] Vida Castañeda 04/29/2022 1 [employer] - [employer]US (MEDICARE REPLACEMENT/A DVANTAGE - HMO) Vida Castañeda [id number] Vida Dorseyhed 12/08/2023 2 [place] WHEN [place]ARE [place] MEDICARE REPLACEMENT PRIMARY) Vida Castañeda [id number] Vida Dorseyhed 04/29/2022 3 [place] Vida Castañeda [id number] Vida Castañeda 04/29/2022 1 [place] [facility] Vida Castañeda [id number] Vida Dorseyhed 07/09/2022 2 [facility] - DOS ON OR AFTER 21 (MEDICAID REPLACEMENT - HMO) Vida Castañeda [id number] Vida Castañeda 04/29/2022 1 [facility] (MEDICAID HMO) Vida Castañeda [id number] Vida Castañeda Notes Date Note Type Note Provider Name and Address Organization Details Recorded Time 1 text/html Breast ProblemsReported by PatientHPIFor quality, patient reportstender,worsening,t hrobbing, andmass presentbut reportsno bloody discharge,no brown discharge,no milky discharge,no yellow-clear discharge,no yellow-green discharge, andimproving. For associated symptoms, patient reports'orange peel' appearancebut reportsno fever,no chills,no breast reddening,no nipple discharge,no sore nipples,no nipple inversion,breasts feel normal,no breast swelling,no arm pain,no arm swelling,no chest pain,no malaise,no breast lump, andno change in breast skin. For location, patient reportsrightandlower __ quadrant. For duration, patient reportsconstant. For severity, patient reportsmoderate. For context, patient reportsprior mammogram normal,performs breast self-examination,no breast implants,no family history of breast cancer,no history of breast cancer,no radiation treatment,no chemotherapy,no cancer,no previous biopsies,no miscarriages,recent mri normal, andlymph node status negative. For modifying factors, patient reportsno recent change in exercise habits,no recent changes in weight,no recent changes in diet, andno recent changes in medication dosage of hormone replacement therapy. For aggravating factors, patient reportsnone. 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 For menopausal symptoms, patient reportsno menopausal symptomsandnormal vaginal lubrication. For vaginal bleeding, patient reportshistory of menopause having occurredandno history of post menopausal bleeding. For vulva, patient reportsno genital lesionandno vulvar atrophy. For vagina, patient reportsnormal vaginal dischargeandno vaginal atrophy.Breast symptomsFor breast, patient reportsbreast lumpbut reportsno nipple dischargeandno breast pain(right breast, 9 o'clock 1 cm x 1 cm, mobile).Psychological symptomsFor sexual complaints, patient reportsno sexual complaints. For psychological symptoms, patient reportsno depressionandno anxiety.Preventative measuresFor preventive measures, patient reportsencourage regular mammograms starting age 40,encourage self breast examination,encourage no tobacco use,needs to schedule mammogram, andneeds to schedule bone density. 64yo F, with extensive medical history including COPD and CHF, presents today for annual. 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 breast abcess Denny quach, [place] [facility] 11/13/2020 16:32:06 2 text/html 66F with PMH IDDM, CHF, COPD, and depression is here for vaginal bleeding, that has been off and on this past month. States she has been postmenopausal since she was 52 years of age. She has not had bleeding since. Today she is not having vaginal bleeding, and she cannot qualify definitely if from vagina, since she wears a pull up underwear. She is having vaginal itching and discharge as well that is cottage cheese like. He blood sugars are not controlled, and are often in the 300s. She has a family history of uterine cancer in her mother. Last mammo 02/2021 was Birads 1. Reports last colonoscopy 10 years ago was normal. OSMIN LONGORIA MD Attn: Accounting[address] [place], [address], [facility] 04/29/2022 16:07:12 2 text/html ROS as noted in the HPI Patient presents secondary to post-menopausal bleeding. She has been seen by another physician who was unable to collect a pap smear and EMB. She admits to continued irregular vaginal bleeding. Petr Mendoza MD Attn: Accounting[address] [facility], [place], [address], [facility] 06/17/2022 14:08:53 2 text/html ROS as noted in the HPI Patient presents to discuss test results. She admits to continued vaginal bleeding as well as pelvic cramps. Petr Mendoza MD Attn: [address]ing[address] , [place], [address], [facility] 07/05/2022 14:00:21 OBGyn Episode Ob Episode Information Episode Created Date Number of Fetuses Patient Bloodtype Patient rh Status Prepregnancy Weight lbs Domestic Partner Domestic Partner Phone Father Name Horseradish Maker Status 01/09/20 18 1 CLOSED Fetus Data First Name Last Name Admitted to NICU Weight (g) Sex Living Outcome Pediatric Complications Fetus ID Race Codes Race Delivery Type Full Term [id number] Yoshi Calculation Initial Yoshi Date Initial Exam Date Initial Exam Provider Initial Ultrasound Date Last Menstrual Period Date Ultra Sound Weeks Gestation 0 Eighteen To Twenty Week Yoshi Update Ultra Sound Date Fundal Height At Umbil Quickening Date Ultra Sound Latest Weeks Gestation Final Yoshi Confirmed By Final Yoshi Confirmed Date Final Yoshi Date Ultra Sound Latest Days Gestation 0 0 Menstrual History Last Menstrual Date Menses Monthly On Bcp Conception Prior Menses Frequency Hcg Plus Date Menarche Onset Age Delivery Information Delivery Date Delivery Type Labor Anesthesia Weeks Gestation Incision Type Labor Labor Length Hrs Delivered By Post Complications Tubal Sterilization Discharge Date Comments 9 40 Discharge Information Feeding Method Contraceptive Method Maternal HG B and HCT Levels
--- OUTSIDE RECORDS SUMMARY | 2025-09-12 14:12 | XMS_ITS | Clinical Summary ---
Author Organization [facility] [address] Address [address] [place] [address] Care Team Providers Care Sebd Teacher Name Role Phone No, Physician Primary Care Provider [phone] Allergies Active Allergy Reactions Criticality Noted Date Comments Cephalexin Other (See comments) Low 06/16/2017 Makes throat swell shut & can't breathe Naproxen Rash Medium 08/19/2017 Penicillins Anaphylaxis High 08/19/2017 Tetracycline Other (See comments) Low 06/16/2017 Makes throat swell shut & can't breathe Medications SYMBICORT 160-4.5 mcg/actuation inhaler INHALE 2 PUFFS TWICE DAILY. RINSE MOUTH AFTER USE. 4 8 Active diazePAM (VALIUM) 10 mg tablet Take 10 mg by mouth nightly. 2 8 Active furosemide (LASIX) 40 mg tablet Take 40 mg by mouth 2 (two) times a day. 8 Active nitroglycerin (NITROSTAT) 0.4 mg SL tablet 8 Active TRUEPLUS INSULIN 0.3 mL 31 gauge x /16 syringe 8 Active glucagon (glucagon) 1 mg kitIndications:Ty pe 2 diabetes mellitus with hyperglycemia, with long-term current use of insulin (HCC),Type 2 diabetes mellitus with hypoglycemia without coma, with long-term current use of insulin (HCC) Use as directed for low blood sugar. 1 kit 11 8 Active traZODone (DESYREL) 50 mg tablet Take 50 mg by mouth nightly. 9 Active ONETOUCH ULTRA BLUE TEST STRIP stripIndications: Type 2 diabetes mellitus with hyperglycemia, with long-term current use of insulin (HCC) Check 4 x daily 200 each 3 9 Active BD ULTRA-FINE ALEX PEN NEEDLE 32 gauge x 32 needleIndications :Type 2 diabetes mellitus with hyperglycemia, with long-term current use of insulin (HCC) 4 x daily 200 each 3 9 Active insulin regular U-500 (HumuLIN R U-500) 500 unit/mL CONCENTRATED injectionIndicati ons:Diabetes Mellitus with Severe Insulin Resistance Inject 100 units tid and 40 units qhs 20 mL 3 9 Active BD INSULIN SYRINGE U-500 1/2 mL 31 gauge x 15/64 syringe USE FOUR TIMES DAILY WITH HUMULIN U-500 INSULIN 400 Syringe 1 9 Active amLODIPine (NORVASC) 10 mg tablet 2 Active Jardiance 10 mg tablet 2 Active gabapentin (NEURONTIN) 300 mg capsule 2 Active LANTUS 100 unit/mL vial for injection 2 Active insulin lispro (HumaLOG, ADMELOG) 100 unit/mL vial for injection 2 Active traMADoL (ULTRAM) 50 mg tablet 2 Active Incruse Ellipta 62.5 mcg/actuation blister with device 2 Active carvediloL (COREG) 12.5 mg tablet 2 Active escitalopram (LEXAPRO) 5 mg tablet 2 Active lamoTRIgine (LaMICtal) 200 mg tablet 2 Active lisinopriL (PRINIVIL,ZESTRIL ) 40 mg tablet 2 Active LORazepam (ATIVAN) 0.5 mg tablet 2 Active metFORMIN (GLUCOPHAGE) 1,000 mg tablet Take 1,000 mg by mouth 2 times daily 8 Active OLANZapine (ZyPREXA) 20 mg tablet 2 Active Active Problems Problem Noted Date Diagnosed Date Diastolic dysfunction, left ventricle 09/25/2022 Edema 09/25/2022 Dystrophia unguium 03/09/2019 Congestive heart failure 08/14/2018 Diabetic peripheral neuropathy 07/15/2018 Fissure in skin 07/15/2018 Tinea pedis 07/15/2018 Type 2 diabetes mellitus wit h hyperglycemia, with long-term current use of insulin 05/04/2018 Assessment & Plan (12/14/2018 7:41 PM SENIOR REACTOR OPERATOR): Diabetes is fairly controlled, A1c today - 7.3 % . Reviewed BS log Advised to increase U 500 Humulin R to 100 units TID with meals and decrease to 30-40 units at bedtime Reminded to bring in blood sugar diary at next visit. Dietary recommendations for ADA diet. Regular aerobic exercise. Discussed ways to avoid symptomatic hypoglycemia. Discussed sick day management. Discussed foot care. Reminded to get yearly retinal exam. Medication changes per orders. Diabetes will be reassessed in 3 months. Assessment & Plan (09/07/2018 1:08 PM SENIOR REACTOR OPERATOR): Diabetes is fair controlled, A1c today - 6.7 % , no BS log to review . HbA1c today - 6.7 % - advise to stop Humalog insulin - increase U 500 Insulin to 95 units SQ - three times with meals and 45 units at bedtime - advise to start taking Metformin 1000 mg oral daily after breakfast - send Blood sugar log every month - follow up in 3 months Reminded to bring in blood sugar diary at next visit. Dietary recommendations for ADA diet. Regular aerobic exercise. Discussed foot care. Reminded to get yearly retinal exam. Medication changes per orders. Diabetes will be reassessed in 3 months. Assessment & Plan (06/16/2018 1:34 PM CDT): Diabetes is fairly controlled, complicated by hypogycemia and hyperglycemia . - Continue to take Regular U 500 - keep taking 90 units with each meal and 45 units at bedtime - Decrease Humalog to 50 units with each meal - stop taking Humalog insulin at bedtime - c/w current Metformin dose - send blood sugar log in 3-4 weeks - please write down the insulin doses at your doing with your blood sugar log - follow up in 2 months Reminded to bring in blood sugar diary at next visit. Dietary recommendations for ADA diet. Regular aerobic exercise. Discussed ways to avoid symptomatic hypoglycemia. Discussed sick day management. Discussed foot care. Reminded to get yearly retinal exam. Medication changes per orders. Diabetes will be reassessed in 6 weeks . Assessment & Plan (05/04/2018 8:44 PM CDT): Diabetes is fairly controlled, complicated by hypogycemia and hyperglycemia . - A1c - HbA1c - 6.3 % - Advise to decrease Humulin U 500 - To 80 units with breakfast and lunch and if still having low BS during day time , decrease to 70 units - advise to decrease Humulin U 500 to 45 units at bedtime and Humalog to 30 units SQ daily at bedtime - keep checking blood sugars - continue metformin 1000 mg oral daily with dinner - follow up in 6 weeks Reminded to bring in blood sugar diary at next visit. Dietary recommendations for ADA diet. Regular aerobic exercise. Discussed ways to avoid symptomatic hypoglycemia. Discussed sick day management. Discussed foot care. Reminded to get yearly retinal exam. Medication changes per orders. Diabetes will be reassessed in 6 weeks . Type 2 diabetes mellitus wit h hypoglycemia without coma, with long-term current use of insulin 05/04/2018 YAYA and COPD overlap syndrome 05/04/2018 Morbid obesity with BMI of 50.0-59.9, adult 12/2017 Assessment & Plan (12/14/2018 7:42 PM SENIOR REACTOR OPERATOR): Obesity is worsening. Discussed the patient's BMI. The BMI is above average; BMI management plan is completed. General weight loss/lifestyle modification strategies discussed (elicit support from others; identify saboteurs; non-food rewards, etc). Behavioral treatment: stress management. Diet interventions: moderate (500 kCal/d) deficit diet. Informal exercise measures discussed, e.g. taking stairs instead of elevator. Regular aerobic exercise program discussed. Assessment & Plan (05/04/2018 8:34 PM CDT): Obesity is worsening. Discussed the patient's BMI. The BMI is above average; BMI management plan is completed. General weight loss/lifestyle modification strategies discussed (elicit support from others; identify saboteurs; non-food rewards, etc). Behavioral treatment: stress management. Diet interventions: moderate (500 kCal/d) deficit diet. Informal exercise measures discussed, e.g. taking stairs instead of elevator. Regular aerobic exercise program discussed. Hypertension associated with diabetes 05/04/2018 Assessment & Plan (12/14/2018 7:42 PM SENIOR REACTOR OPERATOR): Hypertension is improving with treatment. Continue current treatment regimen. Dietary sodium restriction. Weight loss. Regular aerobic exercise. Continue current medications. Blood pressure will be reassessed at the next regular appointment. Assessment & Plan (05/04/2018 8:34 PM CDT): Hypertension is improving with treatment. Continue current treatment regimen. Dietary sodium restriction. Weight loss. Regular aerobic exercise. Continue current medications. Blood pressure will be reassessed at the next regular appointment. Chronic combined systolic an d diastolic congestive heart failure 05/04/2018 Chronic respiratory failure 05/04/2018 CKD (chronic kidney disease) stage 3, GFR 30-59 ml/min 05/04/2018 Assessment & Plan (12/14/2018 7:42 PM SENIOR REACTOR OPERATOR): Recheck renal function Elevated liver enzymes 05/04/2018 Anxiety 03/11/2018 Asthma 03/11/2018 COPD (chronic obstructive pulmonary disease) 12/2017 Bipolar disorder 03/04/2018 Immunizations Immunization Administration Dates Next Due Influenza, Quadrivalent, Spl it, Intramuscular 08/15/2020,08/10/2018,07/27/2015 Influenza, Trivalent, High D ose, Split, Preservative Free, Intramuscular 09/07/2019 Influenza, Unspecified 08/19/2017 Pneumococcal Polysaccharide PPV23 09/29/2018 Tdap 04/02/2018 Surgical History Surgery Date Site/Laterality Comments GALLBLADDER SURGERY 1992 Medical History Medical History Date Comments Type 2 diabetes mellitus Hypertension Heart attack (HCC) COPD (chronic obstructive pulmonary disease) YAYA (obstructive sleep apnea) Diverticulitis CHF (congestive heart failure) (HCC) Fibroadenoma of breast Hyponatremia Family History Medical History Relation Name Comments Diabetes Father Hypertension Father Cancer Mother Diabetes Mother Hypertension Mother Diabetes Sister Hypertension Sister Relation Name Status Comments Father Mother Sister Social History Tobacco Use Types Packs/Day Years Used Date Smoking Tobacco: Never Smokeless Tobacco: Never Alcohol Use Standard Drinks/Week Comments No 0 (1 standard drink = 0.6 oz pur e alcohol) PHQ-2 Answer Date Recorded PHQ-2 Score 3 06/25/2019 Personal Safety Answer Date Recorded Getting School Help Needed Not on file 03/16 /2024 Comments Unknown Sex and Gender Information Value Date Recorded Sex Assigned at Not on file Legal Sex Female 1:45 AM SENIOR REACTOR OPERATOR Gender Identity Not on file Sexual Orientation Not on file Last Filed Vital Signs Vital Sign Reading Time Taken Comments Blood Pressure 118/60 12/14/2018 11:24 AM SENIOR REACTOR OPERATOR Pulse 83 12/14/2018 11:24 AM SENIOR REACTOR OPERATOR Temperature - - Respiratory Rate 18 12/14/2018 11:24 AM SENIOR REACTOR OPERATOR Oxygen Saturation - - Inhaled Oxygen Concentration - - Weight 143.3 kg (316 lb) 12/14/2018 11:24 AM SENIOR REACTOR OPERATOR Height 162.6 cm (5' 4) 12/14/2018 11:24 AM SENIOR REACTOR OPERATOR Body Mass Index 54.24 12/14/2018 11:24 AM SENIOR REACTOR OPERATOR Plan of Treatment Not on file Insurance IDPA [facility] MEDICAID [facility] [employer] CHOICE MEDICARE PPO [facility] MEDICARE ADVANTAGE Care Teams Sebd Teacher Relationship Specialty Start Date End Date No, Physician PCP - General 06/15/18
--- OUTSIDE RECORDS SUMMARY | 2025-09-12 14:12 | XMS_ITS | Clinical Summary ---
Author Organization [facility] Address [facility] [place] [address] Care Team Providers Care Material Controller Name Role Phone Gustavo Gregory MD Unavailable Hoda Richter MD Primary Care Provider [phone] Allergies Active Allergy Reactions Criticality Noted Date Comments Amoxicillin Unknown 02/27/2018 Cephalexin Other (see comment) 06/16/2017 Makes throat swell shut & can't breathe Naproxen Rash Low 08/19/2017 Nitrofurantoin Unknown 02/27/2018 Oxycodone Unknown 02/27/2018 Penicillins Anaphylaxis High 08/19/2017 Propoxyphene Unknown 02/27/2018 Telithromycin Unknown 02/27/2018 Tetracycline Other (see comment) 06/16/2017 Makes throat swell shut & can't breathe Medications SYMBICORT 160-4.5 MCG/ACT inhaler Inhale 2 puffs into the lungs 2 (two) times daily. 8 Active escitalopram 10 MG tablet Take 10 mg by mouth nightly. 8 Active olanzapine 15 MG tablet Take 1 tablet (15 mg total) by mouth nightly at bedtime. 8 Active metFORMIN 1000 MG tablet Take 1 tablet (1,000 mg total) by mouth 2 (two) times daily with meals. 8 Active albuterol (2.5 MG/3ML) 0.083% nebulizer solution Take 2.5 mg by nebulization every 8 (eight) hours as needed for Shortness of breath. Active insulin lispro (HUMALOG KWIKPEN) 100 UNIT/ML injection (PEN) Inject 60 Units into the skin 3 (three) times daily before meals. Active DiazePAM 10 MG tablet Take 10 mg by mouth 2 (two) times daily as needed for Anxiety. Active lamotrigine 100 MG tablet Take 100 mg by mouth nightly at bedtime. Active insulin lispro 100 UNIT/ML injection (VIAL) Inject 0-14 Units into the skin 3 (three) times daily before meals. 10 mL 12 8 Active ISOSORBIDE MONONITRATE ER 60 MG 24 hr tablet TAKE ONE TABLET DAILY 30 tablet 2 8 Active Active Problems Problem Noted Date Diagnosed Date Substernal chest pain 03/08/2018 Type 2 diabetes mellitus wit hout complication, with long-term current use of insulin 03/04/2018 Bipolar disorder 03/04/2018 COPD (chronic obstructive pulmonary disease) 12/2017 Chronic respiratory failure with hypoxia 018 Edema Diastolic dysfunction, left ventricle Essential hypertension Resolved Problems Problem Noted Date Diagnosed Date Resolved Date NSTEMI (non-ST elevated myoc ardial infarction) 03/04/2018 03/08/2018 Family History Medical History Relation Comments Diabetes Father Hypertension Father Diabetes Mother Hypertension Mother cardiac disorder Mother malignant neoplasm Mother Relation Status Comments Father Mother Social History Tobacco Use Types Packs/Day Years Used Date Smoking Tobacco: Never Smokeless Tobacco: Never Alcohol Use Standard Drinks/Week Comments No 0 (1 standard drink = 0.6 oz pur e alcohol) Comments No Sex and Gender Information Value Date Recorded Sex Assigned at Not on file Legal Sex Female 7:29 PM CDT Gender Identity Not on file Sexual Orientation Not on file Occupation Industry Job Start Date Job End Date Not on file Not on file Not on file Not on file Last Filed Vital Signs Vital Sign Reading Time Taken Comments Blood Pressure 140/80 04/14/2018 10:51 AM CDT Pulse 60 04/14/2018 10:51 AM CDT Temperature 36.4 C (97.6 F) 03/06/2018 7:00 AM CDT Respiratory Rate 18 03/06/2018 7:00 AM CDT Oxygen Saturation 97% 03/06/2018 7:00 AM CDT Inhaled Oxygen Concentration - - Weight 141.1 kg (311 lb) 04/14/2018 10:51 AM CDT Height 162.6 cm (5' 4) 04/14/2018 10:51 AM CDT Body Mass Index 53.38 04/14/2018 10:51 AM CDT Plan of Treatment Health Maintenance Due Date Last Done Comments Colorectal Cancer Screening Colonoscopy (10 Years) 1955 Kidney Health Evaluation 1955 Diabetes: Retinopathy Eye Exam 1972 Hepatitis C 1972 Mammogram Screening 1994 Zoster Vaccines (1 of 2) 2004 RSV Immunization or 60+ Years (1 - Risk 60-74 years 1-dose series) 2014 Hemoglobin A1C 09/04/2018 03/04/2018, 03/0 03/2018, 11/17/2017, Additional history exists Lipid Panel 03/05/2019 03/05/2018, 09/03, 09/19/2017, Additional history exists Dexa Scan (General) 2019 Pneumococcal Vaccine: 50+ Years (2 of 2 - PCV) 09/29/2019 09/29/2018 COVID-19 Vaccine (2 - season) 2025 02/12/2021 Influenza Adult (#1) 2025 08/15/2020, 09/07/2019, 08/10/2018, Additional history exists DTaP, Tdap and Td Vaccines (2 - Td or Tdap) 04/02/2028 04/02/2018 Hepatitis A Vaccines Aged Out No long er eligible based on patient's age to complete this topic Meningococcal B Vaccine Aged Out No l onger eligible based on patient's age to complete this topic Meningococcal Vaccine Aged Out No hallie marie eligible based on patient's age to complete this topic RSV Immunizations Under 20 Months Aged Out No longer eligible based on patient's age to complete this topic Procedures Procedure Name Priority Date/Time Associated Diagnosis Comments LIPID PANEL Routine 03/05/2018 7:20 AM CDT HEMOGLOBIN, GLYCOSYLATED Routine 03/04/2018 2:26 PM CDT from Last 3 Months or Most Recently Relevant to Health Maintenance Results * (ABNORMAL) LIPID PANEL (03/05/2018 7:20 AM CDT) CHOLESTEROL 163 <200 MG/DL 03/05/2018 8:06 AM CDT [facility] TRIGLYCERIDES 263(H) <150 MG/DL 03/05/2018 8:06 AM CDT [facility] HDL 43 >40.0 MG/DL 03/05/2018 8:06 AM T [facility] LDL (CALCULATED) 67.4 <100 MG/L 03/05/20 18 8:06 AM CDT [facility] NON HDL CHOLESTEROL 120 <130 MG/DL 03/05/2018 8:06 AM T [facility] CHOL/HDL RATIO 3.8 0.0 - 4.5 03/05/2018 8:06 AM T [facility] VLDL CALCULATION 53 5 - 55 MG/DL 03/05/2018 8:06 AM T [facility] LIPID INTERPRETATION 03/05/2018 8:06 AM T [facility] Comment: NIH CONCENSUS REPORT RECOMMENDATIONS: ADULT CHILD LOW RISK: CHOLESTEROL <200 <170 TRIGLYCERIDE <150 --- HDL >=60 --- LDL <100 <110 BORDERLINE: CHOLESTEROL 200-239 170-199 TRIGLYCERIDE 150-199 --- HDL 40-59 --- LDL 100-159 110-129 HIGH RISK: CHOLESTEROL >=240 >=200 TRIGLYCERIDE >=200 --- HDL <40 --- LDL >=160 >=130 03/05/2018 7:20 AM CDT Janae Reagan APRN LABORATORY Final Result [facility] [address] [place] [address], * (ABNORMAL) HEMOGLOBIN, GLYCOSYLATED (03/04/2018 2:26 PM CDT) HGB A1C 8.1(H) 4.2 - 6.3 % 03/04/2018 3:07 PM CDT [facility] Comment: ADA GUIDELINES 2010 5.7 TO 6.4% INCREASED RISK OF DIABETES > OR = 6.5% CONSISTENT WITH DIABETES ESTIMATED AVG GLUCOSE 186 mg/dL 03/04/2018 3:07 PM CDT [facility] 03/04/2018 2:26 PM CDT Janae Reagan COVER OPERATOR LABORATORY Final Result [facility] [address] [place] [address], [place] [phone] from Last 3 Months or Most Recently Relevant to Health Maintenance Insurance Advance Directives Documents on File Type Date Recorded Patient Social Worker Expl anation Advance Directives and Living Will 03/05/2018 1:18 PM 03-05-18 POA FOR HEALTHCARE * Full Code (Latest Code Status on File) Date Activated Date Inactivated Comments 03/05/2018 6:21 PM 03/06/2018 3:09 PM * Full Code Date Activated Date Inactivated Comments 03/04/2018 12:35 PM 03/05/2018 6:21 PM Care Teams Material Controller Relationship Specialty Start Date End Date Hoda Richter MD [address] [address] PCP - General FAMILY PRACTICE 03/02/18 Gustavo Gregory MD [facility] [address] [place] [address] [employer] CARDIOVASCULAR DISEASE 02/19/18
--- OUTSIDE RECORDS SUMMARY | 2025-09-12 14:12 | XMS_ITS | Clinical Summary ---
Author Organization [facility] Address [address] [facility] [place] [address] Phone Care Team Providers Care Instrumentation Supervisor Name Role Phone Tono Austin DPM Unavailable [phone] Allergies Active Allergy Reactions Criticality Noted Date Comments Cephalexin Other (see Comments) 06/16/2017 Makes throat swell shut & can't breathe Naproxen Rash 08/19/2017 Penicillins Anaphylaxis 08/19/2017 Tetracycline Other (see Comments) 06/16/2017 Makes throat swell shut & can't breathe Medications lisinopril (PRINIVIL, ZESTRIL) 10 MG Tablet Take 10 mg by mouth daily. Active OLANZapine (ZYPREXA) 10 MG Tablet Take 10 mg by mouth nightly. Active escitalopram (LEXAPRO) 20 MG Tablet Take 20 mg by mouth daily. Active ALPRAZolam (XANAX) 0.5 MG Tablet Take 0.5 mg by mouth daily. Active metFORMIN (GLUCOPHAGE) 500 MG Tablet Take 500 mg by mouth 2 times daily (with meals). Active SITagliptin (JANUVIA) 25 MG Tablet Take 25 mg by mouth daily. Active Insulin Glargine (LANTUS SC) 80 Units by Subcutaneous route nightly. Active Insulin Lispro (HUMALOG KWIKPEN SC) 30 Units by Subcutaneous route 3 times daily. Active Active Problems Problem Noted Date Diagnosed Date Pain of left great toe 07/30/2017 Paronychia of great toe, left 07/01/2017 Immunizations Immunization Administration Dates Next Due Covid-19, Mrna, Lnp-s, Pf, 30 Mcg/0.3 Ml Dose (P fizer) 02/12/2021 Family History Medical History Relation Name Comments Diabetes Father Chronic Obstructive Pulmonary Disease Mother Diabetes Mother Relation Name Status Comments Father Alive Mother Social History Tobacco Use Types Packs/Day Years Used Date Smoking Tobacco: Never Smokeless Tobacco: Never Tobacco Cessation:Counseling Given: Yes Alcohol Use Standard Drinks/Week Comments No 0 (1 standard drink = 0.6 oz pur e alcohol) Sexually Active Control Partners Comments Never Comments No Sex and Gender Information Value Date Recorded Sex Assigned at Not on file Legal Sex Female 10:54 PM CDT Gender Identity Not on file Sexual Orientation Not on file Last Filed Vital Signs Vital Sign Reading Time Taken Comments Blood Pressure 128/64 08/19/2017 9:49 AM CDT Pulse 77 08/19/2017 9:49 AM CDT Temperature 36.6 C (97.9 F) 08/19/2017 9:49 AM CDT Respiratory Rate 20 08/19/2017 9:49 AM CDT Oxygen Saturation 93% 08/19/2017 9:49 AM CDT Inhaled Oxygen Concentration - - Weight 131.5 kg (290 lb) 08/19/2017 9:49 AM CDT Height 162.6 cm (5' 4) 08/19/2017 9:49 AM CDT Body Mass Index 49.78 08/19/2017 9:49 AM CDT Plan of Treatment Health Maintenance Due Date Last Done Comments Hepatitis C Virus (HCV) Screening 1955 Cologuard 1999 Colonoscopy 1999 Colorectal Cancer Screening 1999 Immunochemical Fecal Occult Blood 1999 Respiratory Syncytial Virus (RSV) Immunization (Adult) (1 - Risk 50-74 years 1-dose series) 2004 Zoster Immunization (1 of 2) 2004 Pneumococcal Immunization (5 0+ years) (2 of 2 - PCV) 09/29/2019 09/29/2018 Influenza Immunization (#1) 2025 07/27/2015 SARS-COV-2 Immunization (3 - season) 2025 03/05/2021, 02/12/2021 DTaP/Tdap/Td Immunization Discontinued 04/02/2018 TdaP Immunization Completed 04/02/2018 Pneumococcal Immunization Combined Discontinued 09/29/2018 Hepatitis B Immunization Aged Out No longer eligible based on patient's age to complete this topic Human Papillomavirus (HPV) Immunization Aged Out No longer eligible based on patient's age to complete this topic Meningococcal Immunization (ACWY) Aged Out No longer eligible based on patient's age to complete this topic Rotavirus Immunization Aged Out No lo nger eligible based on patient's age to complete this topic Care Teams Instrumentation Supervisor Relationship Specialty Start Date End Date Tono Austin DPM Consulting Physician Podiatry 06/16/17
--- NOTE | 2025-09-12 15:54 | ECG_ITS ---
Test Date: 2025-09-12 16:18:46 Measurements Intervals [place] Rate: 63 P: 46 [place]: 224 QRS: -8 QRSD: 113 T: 19 QT: 388 QTc: 398 Interpretive Statements SINUS RHYTHM WITH FIRST DEGREE AV BLOCK LOW QRS VOLTAGE IN PRECORDIAL LEADS [QRS DEFLECTION < 1.0 mV IN CHEST LEADS] MODERATE VOLTAGE CRITERIA FOR LVH, CONSIDER NORMAL VARIANT [MEETS CRITERIA IN ONE OF: R(aVL), S(V1), R(V5), R(V5/V6)+S(V1)] Poor R wave progression Electronically Signed On 09-13-2025 17:55:03 SCRIPT WRITER by Mark Werner M.D.
[2025-09-12 16:42] LABS: Hematocrit 35.1 % (37.0-47.0); Hemoglobin 11.5 g/dL (12.0-15.0); Immature Granulocyte Percent A 0.2 % (0-0.5); Immature Platelet Fraction Pct 9.7 % (0.9-11.2); Lymphocytes Absolute Auto 1.78 K/mm3 (0.9-3.2); Mean Corpuscular HGB Conc 32.8 g/dl (32-36); Mean Corpuscular Hemoglobin 29.1 pg (26-34); Mean Corpuscular Volume 88.9 fl (80-100); Nucleated Red Blood Cells Absolute Auto 0.000 K/mm3 (0.0-0.012); Nucleated Red Blood Cells Perc 0.0 % (0.0-0.2); Platelet Count Result 112 k/mm3 (150-375); Red Blood Count 3.95 M/mm3 (4.2-5.4); White Blood Count 5.7 K/mm3 (4.5-10.0)
[2025-09-12 16:48] LABS: Albumin Level 4.5 g/dL (3.5-5.1)
[2025-09-12 16:51] LABS: Anion Gap 9 mmol/L (4-12); Blood Urea Nitrogen 14 mg/dL (7-17); Calcium 9.5 mg/dL (8.4-10.2); Carbon Dioxide 31 mmol/L (22-30); Chloride 94 mmol/L (98-107); Estimated Glomerular Filt Rate 50; Glucose 117 mg/dL (65-110); Potassium 4.2 mmol/L (3.4-5.0); Sodium 134 mmol/L (137-145)
[2025-09-12 16:52] LABS: INR 1.1; Partial Thromboplastin Time 30.1 Seconds (22.3-36.8); Prothrombin Time 14.2 Seconds (11.1-14.7)
[2025-09-12 17:06] LABS: Hemoglobin A1C 5.2 % (<5.7)
[2025-09-12 17:58] LABS: MRSA (PCR) NOT DETECTED (NOT DETECTE)
== END 2025-09-12 14:02 | disposition home or self-care (01) ==
LOC: ANHSURGERY 14:03
PROVIDERS: Anesthesiology; PCP Nurse Practitioner Adult Health; Visit Provider Orthopaedic Surgery
DX: Z01.818 Encounter for other preprocedural examination (principal); I44.0 Atrioventricular block, first degree; M17.11 Unilateral primary osteoarthritis, right knee; N28.9 Disorder of kidney and ureter, unspecified; Z51.81 Encounter for therapeutic drug level monitoring
CPT/HCPCS: 36415; 80048; 80307; 82040; 83036; 85025; 85055; 85610; 85730; 86850; 86900; 86901; 87641; 93005

== ENCOUNTER 2025-10-13 08:33 | Outpatient (CLI) | payer MEDICARE, MEDICAID, SELFPAY ==
--- NOTE | 2025-10-13 | EST_ITS ---
Patient Info Name: Vida Castañeda Age: 70 years : 1955 Gender: Female Ht: 62 in Wt: 210 lbs BSA: 2.09 m2 HR: 65 bpm BP: 124 / 66 mmHg Exam Date: 10/13/2025 8:52 AM Patient Status: O Admit Date: 10/13/2025 Exam Type: CA stress tam w NM A regadenoson stress test was performed. Staff Referring Physician: Jannet Mccarthy Attending Provider: Jannet Mccarthy Exercise Technologist: Radha Naqvi Exercise Physician: Jose Jones DO Summary 1. 1. Negative lexiscan stress test for ischemic ST changes by ECG criteria. 2. 2. Stable hemodynamics throughout the test. 3. 3. Nuclear scan to follow and will be reported separately. Please correlate with it. 4. 4. Patient informed of the above results. Protocol: Lexiscan Stress ECG Details Stage: REST Duration (min): 0 min : 57 sec HR (bpm): 64 SBP (mmHg): 124 DBP (mmHg): 66 Stage: REST Duration (min): 7 min : 6 sec HR (bpm): 63 SBP (mmHg): 124 DBP (mmHg): 66 Stage: STAGE 1 Duration (min): 1 min : 0 sec HR (bpm): 76 SBP (mmHg): 120 DBP (mmHg): 65 Stage: RECOVERY Duration (min): 1 min : 0 sec HR (bpm): 81 SBP (mmHg): 120 DBP (mmHg): 65 Stage: RECOVERY Duration (min): 2 min : 0 sec HR (bpm): 76 SBP (mmHg): 120 DBP (mmHg): 65 Stage: RECOVERY Duration (min): 3 min : 0 sec HR (bpm): 75 SBP (mmHg): 135 DBP (mmHg): 64 Stage: RECOVERY Duration (min): 3 min : 18 sec HR (bpm): 76 SBP (mmHg): 135 DBP (mmHg): 64 Rest HR: 63 bpm Peak HR: 83 bpm Rest Sys BP: 124 mmHg Peak Sys BP: 135 mmHg Max Pred HR: 149 bpm % Max Pred HR: 56 % Target HR: 127 bpm Max RPP: 11,205 bpm*mmHg Termination Reason: Completed protocol Cardiac Symptoms: Shortness of breath Total Time: 1 min : 0 sec Rest Jordan BP: 66 mmHg Peak Jordan BP: 64 mmHg Total Dose: 0.4 mg Resting ECG Sinus rhythm. Stress ECG No ST changes. Arrhythmias None. Report Signatures
--- NOTE | 2025-10-13 | ECHO_ITS ---
Patient Info Name: Vida Castañeda Age: 70 years : 1955 Gender: Female Ht: 62 in Wt: 210 lbs BSA: 2.09 m2 HR: 66 bpm BP: 110 / 72 mmHg Technical Quality: Fair Exam Date: 10/13/2025 9:09 AM Patient Status: O Admit Date: 10/13/2025 Exam Type: CA echo doppler color flow Complete two-dimensional, color flow and Doppler transthoracic echocardiogram is performed. Staff Referring Physician: Jannet Mccarthy Mining Support Worker: Joi Russell Attending Provider: Jannet Mccarthy Summary 1. Complete two-dimensional, color flow and Doppler transthoracic echocardiogram is performed. 2. Left ventricular chamber dimension is normal. 3. Ventricular septum is sigmoid shaped. No resting LVOT obstruction. 4. Left ventricular systolic function is normal, estimated at 55-60. 5. The left ventricular diastolic function is grade I diastolic dysfunction. 6. E/e' 12 is mildly elevated. 7. Right ventricular chamber dimension is mildly enlarged. 8. There is trace mitral valve regurgitation. 9. There is trace tricuspid valve regurgitation. 10. No pulmonary hypertension, estimated pulmonary arterial systolic pressure is 25 mmHg. Left Ventricle E/e' 12 is mildly elevated. Left ventricular chamber dimension is normal. Left ventricular systolic function is normal, estimated at 55-60. The left ventricular diastolic function is grade I diastolic dysfunction. Ventricular septum is sigmoid shaped. No resting LVOT obstruction. Right Ventricle Right ventricular chamber dimension is mildly enlarged. Right ventricular systolic function is normal. Left Atria Left atrial chamber dimension is normal. Right Atria Right atrial chamber dimension is normal. Aortic Valve The aortic valve is trileaflet. There is no aortic valve stenosis. There is no aortic valve regurgitation. Pulmonic Valve There is no pulmonic regurgitation. Mitral Valve There is no mitral valve stenosis. There is trace mitral valve regurgitation. Tricuspid Valve There is trace tricuspid valve regurgitation. No pulmonary hypertension, estimated pulmonary arterial systolic pressure is 25 mmHg. Pericardium/Pleural There is no pericardial effusion. Inferior Vena Cava Normal inferior vena cava with >50% collapse upon inspiration consistent with normal right atrial pressure, 5 mmHg. Aorta The aortic root size at the sinus of Valsalva is normal. Left Ventricular Outflow Tract Name Value Normal LVOT 2D LVOT Diameter 1.9 cm LVOT Doppler LVOT Peak Velocity 109 cm/s LVOT Peak Gradient 5 mmHg LVOT Mean Gradient 3 mmHg LVOT VTI 22 cm LVOT VTI/AV VTI Ratio 0.8 LVOT Stroke Volume 61 ml LVOT CO 3.9 l/min LVOT CI 1.9 l/min/m2 Pulmonic Valve Name Value Normal RVOT Doppler RVOT Peak Velocity 72 cm/s RVOT Peak Gradient 2 mmHg PV Doppler PV Peak Velocity 116 cm/s PV Peak Gradient 5 mmHg Mitral Valve Name Value Normal MV Diastolic Function MV E Peak Velocity 62 cm/s MV A Peak Velocity 90 cm/s MV E/A 0.7 MV Decel Time (PW) 200 ms Tricuspid Valve Name Value Normal TV Regurgitation Doppler TR Peak Velocity 222 cm/s TR Peak Gradient 16 mmHg Estimated PAP/RSVP RA Pressure 5 mmHg <=5 PA Systolic Pressure 25 mmHg <36 RV Systolic Pressure 25 mmHg <36 Aorta Name Value Normal Ascending Aorta Ao Root Diameter (MM) 3.3 cm Ao Root Diam Index (MM) 1.6 cm/m2 Aortic Valve Name Value Normal AV Doppler AV Peak Velocity 133 cm/s AV Peak Gradient 7 mmHg AV Mean Gradient 4 mmHg AV VTI 26 cm AV Area (Cont Eq VTI) 2.3 cm2 >=3.0 AV Area (Cont Eq Juan) 2.3 cm2 AV DI (Juan) 0.82 AV Regurgitation 2D LVOT Area 2.8 cm2 Ventricles Name Value Normal LV Dimensions 2D/MM IVS Diastolic Thickness (2D) 1.1 cm 0.6-1.0 IVS Diastole Thickness (MM) 0.9 cm 0.6-0.9 LVID Diastole (2D) 4.0 cm 3.8-5.2 LVID Diastole (MM) 6.3 cm 3.8-5.2 LVIW Diastolic Thickness (2D) 0.8 cm 0.6-0.9 LVIW Diastolic Thickness (MM) 1.0 cm 0.6-0.9 LVID Systole (2D) 2.7 cm 2.2-3.5 LVID Systole (MM) 4.1 cm 2.2-3.5 LVOT Diameter 1.9 cm LV Mass (2D Cubed) 114.62 g 67.00-162.00 LV Mass Index (2D Cubed) 55 g/m2 43-95 Relative Wall Thickness (2D) 0.41 <=0.42 LV Mass (MM Cubed) 254.68 g 67.00-162.00 LV Mass Index (MM Cubed) 122 g/m2 43-95 Relative Wall Thickness (MM) 0.33 LV Fractional Shortening/Ejection Fraction 2D/MM LV Fractional Shortening (2D) 32 % 27-45 LV Fractional Shortening (MM) 35 % 27-45 LV EF (MM Teichholz) 64 % LV EF (2D Teichholz) 60 % LV Diastolic Volume (4C MOD) 54 ml LV EF (4C MOD) 45 % LV Diastolic Volume (2C MOD) 31 ml LV EF (2C MOD) 58 % LV Diastolic Volume (BP MOD) 41 ml 46-106 LV Diastolic Volume Index (BP MOD) 19 ml/m2 29-61 LV Systolic Volume (BP MOD) 20 ml 14-42 LV Systolic Volume Index (BP MOD) 9 ml/m2 8-24 LV EF (BP MOD) 52 % 54-74 LV Diastolic Length (4C) 7.7 cm LV Systolic Length (4C) 6.2 cm LV Stroke Volume (4C MOD) 24 ml Atria Name Value Normal LA Dimensions LA Dimension (MM) 3.6 cm 2.7-3.8 LA Volume (4C A-L) 45 ml LA Volume (BP A-L) 46 ml RA Dimensions RA Systolic Major [place] Length (4C) 3.9 cm 2.2-2.8 RA Area (4C) 10.5 cm2 <=18.0 Report Signatures
--- NOTE | ~2025-10-13 | NM_ITS ---
EXAMINATION: NM tam stress w perfusion DATE: 10/13/2025 11:50 INDICATION: Heart failure TECHNIQUE: Rest images were obtained following intravenous administration of 10.1 mCi Tc99m tetrofosmin (Myoview). The patient was infused intravenously with Lexiscan (Regadenoson). Then, 31.9 mCi Tc99m tetrofosmin (Myoview) was administered intravenously, and stress images were obtained. Data was froylan nstructed into short axis and horizontal and vertical long axis SPECT images. Gated SPECT images were also obtained. COMPARISON: None. FINDINGS: No nonreversible moderate severity perfusion defect consistent with infarct at the mid inferior, basilar inferior segments extending into portion of the adjacent mid inferolateral and basilar inferolateral segments. No reversible ischemia. There is normal left ventricular chamber size, wall motion and ejection fraction. Left ventricular ejection fraction measures >70%. IMPRESSION: 1. Nonreversible perfusion defect consistent with infarct involving the mid inferior, basilar inferior and portions of the adjacent mid inferolateral and basilar inferolateral segments. No reversible ischemia. 2. Left ventricular ejection fraction measuring >70%. Reviewed, dictated and finalized at location A. H AND CLOCK REPAIR CLERK IMPRESSION: 1. Nonreversible perfusion defect consistent with infarct involving the mid inf erior, basilar inferior and portions of the adjacent mid inferolateral and basi lar inferolateral segments. No reversible ischemia. 2. Left ventricular ejection fraction measuring >70%.
== END 2025-10-13 08:34 | disposition home or self-care (01) ==
PROVIDERS: PCP Nurse Practitioner Adult Health; Visit Provider Nurse Practitioner Adult Health
DX: I50.9 Heart failure, unspecified (principal)
CPT/HCPCS: 78452; 93017; 93306; A9502; J2785